=== PATIENT | female | born 1965 | race Caucasian/White ===

== ENCOUNTER 2018-07-05 11:59 | Emergency (ER) | payer OTHER, MEDICAID, SELFPAY ==
[2018-07-05] MEDS: SODIUM CHLORIDE 0.9% 1,000 ML 150 ML IV (12:05)
--- NOTE | 2018-07-05 12:06 | DI.CT.S_ITS ---
PROCEDURE: CT ABDOMEN PELVIS W CON INDICATIONS: LLQ pain hx breast cancer and diverticulitis TECHNIQUE: After the administration of intravenous contrast, 5 mm thick sections acquired from the diaphragm to the symphysis. 5 mm coronal and sagittal reformats were acquired. For radiation dose reduction, the following was used: automated exposure control, adjustment of mA and/or kV according to patient size. COMPARISON: [facility], CT, ABDOMEN/PELVIS WITH CONTRAST, 12/04/2017, 18:55. FINDINGS: Image quality: Excellent ABDOMEN: Lung bases: Unchanged 3 mm left lower lobe nodule. Heart size is normal. Trace pericardial effusion. Solid organs: Liver demonstrates unchanged steatosis and low attenuation foci. Gallbladder is unremarkable. Biliary system is non dilated. Pancreas enhances normally. Spleen is normal in size and enhancement. No adrenal nodules. Kidneys demonstrate normal size and enhancement, without hydronephrosis. Unchanged left renal cyst and nonobstructing right renal calculus. Peritoneum and bowel: Bowel loops demonstrate normal wall thickness and caliber. No free fluid or air. Colonic diverticula are present with prominent wall thickening and inflammation adjacent to a loop of descending colon. Mild dependent free fluid. Nodes and vessels: No retroperitoneal or mesenteric adenopathy by size criteria. Aorta and inferior vena cava are normal in size. Miscellaneous: No ventral hernias. PELVIS: Genitourinary: Bladder wall thickness is normal. Miscellaneous: No inguinal hernias or adenopathy. Bones: No suspicious bony lesions. No vertebral body compression fractures. IMPRESSION: 1. Focal descending loop of thickening and inflammatory change with diverticula. No abscess. Mild dependent pelvic fluid. Findings are most consistent with colitis secondary to diverticulitis. Dictated by: Zofia Coyne M.D. on 07/05/2018 at 13:26 Approved by: Zofia Coyne M.D. on 07/05/2018 at 13:39
[2018-07-05 12:14] VITALS: BP 112/80; PULSE 85; RESP 22; TEMP 36.9; O2SAT 96; BMI 36.6
[2018-07-05 12:35] LABS: Add Manual Diff / Slide Review NO; Eosinophils Percent Auto 0.9 % (2-4); Hematocrit 39.7 % (36-46); Hemoglobin 13.8 g/dL (12.0-16.0); Lymphocytes Percent Auto 24.3 % (25-40); Mean Corpuscular HGB Conc 34.7 % (30-36); Mean Corpuscular Hemoglobin 31.9 PG (26-34); Mean Corpuscular Volume 91.9 fL (80-100); Monocytes Percent Auto 8.4 % (3-14); Neutrophils Absolute Auto 5900 /uL (3000-5900); Neutrophils Percent Auto 65.4 % (50-75); Platelet Count 266 X10^3/uL (150-400); Red Blood Cell Count 4.32 X10^6/uL (4.0-5.2); Red Cell Distribution Width 12.3 % (11.6-14.8)
[2018-07-05 12:46] LABS: Alanine Aminotransferase 34 IU/L (9-52); Albumin 4.1 g/dL (3.5-5.0); Albumin Globulin Ratio 1.5 (1.0-2.8); Alkaline Phosphatase 86 U/L (38-126); Aspartate Aminotransferase 21 IU/L (14-36); BUN Creatinine Ratio 21.7 (6-22); Bilirubin Total 0.9 mg/dL (0.2-1.3); Blood Urea Nitrogen 13 mg/dL (7-17); Calcium 8.9 mg/dL (8.4-10.2); Carbon Dioxide 26 mmol/L (22-32); Chloride 104 mmol/L (98-107); Estimated Glomerular Filt Rate > 60.0 mL/min (>60); Globulin 2.8 g/dL (1.7-4.1); Glucose 80 mg/dL (70-100); HEMOLYSIS < 15 (0-50); Lipase 68 U/L (23-300); Potassium 3.9 mmol/L (3.4-5.1); Sodium 143 mmol/L (137-145); Total Protein 6.9 g/dL (6.3-8.2)
[2018-07-05 13:30] VITALS: BP 111/64; PULSE 77; RESP 14; O2SAT 100
[2018-07-05] MEDS: diphenhydrAMINE 50 MG/ML VIAL 25 MG IV (13:57)
[2018-07-05 14:00] VITALS: BP 110/65; PULSE 81; RESP 16; O2SAT 100
--- NOTE | 2018-07-05 14:08 | ED_ITS ---
HPI - Abdominal Pain General Chief Complaint: Abdominal Pain Stated Complaint: Left lower quadrant pain Time Seen by Provider: 07/05/18 12:06 History of Present Illness HPI narrative: Patient is a 53-year-old female who presents with left lower quadrant pain. This started yesterday progressively getting worse. [place]. She has history of diverticulitis and history of breast cancer. It feels nauseated at times no vomiting. She overall feels achy and weak. Normal bowel movements non bloody. Pain with movement. Related Data Home Medications Medication Instructions Recorded Confirmed aspirin 81 mg PO QDAY #0 02/19/17 acetaminophen 325 mg PO PRN PRN #0 03/21/17 [EDIBLE CANNIBUS] #0 07/07/17 [HEMP OIL PILLS] #0 07/07/17 acetaminophen-codeine 2 tab PO X1 #0 07/07/17 ibuprofen 200 mg PO PRN PRN #0 07/07/17 Previous Rx's Medication Instructions Recorded metoprolol succinate 50 mg PO QDAY #30 ter 02/27/17 cyanocobalamin (vitamin B-12) 1,000 mcg IM Q7DAYS #4 ea 03/11/17 lisinopril 10 mg PO QDAY #30 tab 03/14/17 hydrocodone-acetaminophen [[place]] 1 tab PO Q4HP PRN #15 tab 07/07/17 hydrocodone-acetaminophen [[place]] 1 tab PO Q6HP PRN #10 tab 12/04/17 levofloxacin [Levaquin] 750 mg PO QDAY #10 tab 12/04/17 metronidazole [Flagyl] 500 mg PO TID #30 tab 12/04/17 amoxicillin-pot clavulanate 1 tab PO Q12H #20 tab 07/05/18 Allergies Allergy/AdvReac Type Severity Reaction Status Date / Time No Known Allergies Allergy Unknown Unverified 01/07/18 12:26 [NO KNOWN ALLERGIES] Review of Systems Review of Systems GENERAL: Denies chills, fatigue, malaise, fever, sweats, travel HEENT: Denies sinus pain, ear pain, sore throat, difficulty swallowing, neck pain RESPIRATORY: Denies dyspnea, cough, wheezing, hemoptysis, sputum. CARDIOVASCULAR: Denies chest pain, palpitations, orthopnea, edema GASTROINTESTINAL: See HPI : Denies dysuria, frequency, incontinence, hematuria, urinary retention, flank pain. MUSCULOSKELETAL: Denies weakness, joint pain, or bony pain SKIN: No rash, no erythema, no pruritus NEUROLOGIC: Denies weakness, dizziness, headache, numbness, change in speech, confusion PSYCHIATRIC: No concerning psychosocial issues. 12 point review of systems is negative except for those stated above and HPI PFSH Medical History Diverticulitis (Acute) Social History Smoking Status: Never smoker alcohol intake: never substance use type: does not use Exam Initial Vital Signs Initial Vital Signs: Vital Signs Temperature 98.4 F 07/05/18 12:14 Pulse Rate 85 07/05/18 12:14 Respiratory Rate 22 07/05/18 12:14 Blood Pressure 112/80 07/05/18 12:14 Pulse Oximetry 96 07/05/18 12:14 GENERAL: Alert female appears uncomfortable A& O x3 HEENT: Head atraumatic,EOMI, pupils reactive, face symmetric, CARDIOVASCULAR: Regular rate and rhythm without murmurs, rubs or gallops. RESPIRATORY: Breath sounds equal bilaterally, no wheezes rales or rhonchi. ABDOMEN: Soft, mild tenderness in the lower quadrant without guarding or rebound normal bowel sounds EXTREMITIES: Normal range of motion, no clubbing or edema. Neurovascularly intact NEUROLOGICAL: Alert and oriented x4.Normal gait and speech. SKIN: Warm, dry, no laceration, no petechiae, no rashes or lesions. Course Orders Ordered: ED Orders 07/05/18 12:06 CT abdomen pelvis w con Stat 07/05/18 12:27 Complete Blood Count AUTO DIFF Stat Comprehensive Metabolic Panel Stat Lipase Stat Sodium Chloride (Normal Saline 0.9%) 1,000 mls @ 150 mls/hr IV CONT PHYLLIS Last Infusion: 07/05/18 14:25 Dose: 0 mls/hr Admin: 07/05/18 12:05 Dose: 150 mls/hr Discontinued Medications Diphenhydramine HCl (Benadryl) 25 mg IV NOW ONE Stop: 07/05/18 13:46 Last Admin: 07/05/18 13:57 Dose: 25 mg Ketorolac Tromethamine (Toradol) 30 mg IV NOW ONE Stop: 07/05/18 14:20 Last Admin: 07/05/18 14:24 Dose: 30 mg Ondansetron HCl (Zofran) 4 mg IV NOW ONE Stop: 07/05/18 12:07 Last Admin: 07/05/18 12:34 Dose: Vital Signs - 8 hr 07/05/18 12:14 07/05/18 13:30 07/05/18 14:00 Temperature 98.4 F Pulse Rate 85 77 81 Respiratory Rate 22 14 16 Blood Pressure 112/80 Blood Pressure [Left Arm] 111/64 110/65 Pulse Oximetry 96 100 100 MDM - Abdominal Pain Lab Data Attestation: I reviewed the patient's lab results. Result diagrams: 07/05/18 12:27 07/05/18 12:27 Lab Results 07/05/18 07/05/18 Range/Units 12:27 12:27 WBC 9.0 (4.5-11.0) X10^3/uL RBC 4.32 (4.0-5.2) X10^6/uL Hgb 13.8 (12.0-16.0) g/dL Hct 39.7 (36-46) % MCV 91.9 (80-100) fL MCH 31.9 (26-34) PG MCHC 34.7 (30-36) % RDW 12.3 (11.6-14.8) % Plt Count 266 (150-400) X10^3/uL Neut % (Auto) 65.4 (50-75) % Lymph % (Auto) 24.3 L (25-40) % Mobile % (Auto) 8.4 (3-14) % Eos % (Auto) 0.9 L (2-4) % Baso % (Auto) 1.0 (0-2) % Neut # (Auto) 5900 (4603-1168) /uL Sodium 143 (137-145) mmol/L Potassium 3.9 (3.4-5.1) mmol/L Chloride 104 (98-107) mmol/L Carbon Dioxide 26 (22-32) mmol/L BUN 13 (7-17) mg/dL Creatinine 0.60 (0.52-1.04) mg/dL Estimated GFR > 60.0 (>60) mL/min BUN/Creatinine Ratio 21.7 (6-22) Glucose 80 (70-100) mg/dL Calcium 8.9 (8.4-10.2) mg/dL Total Bilirubin 0.9 (0.2-1.3) mg/dL AST 21 (14-36) IU/L ALT 34 (9-52) IU/L Alkaline Phosphatase 86 (38-126) U/L Total Protein 6.9 (6.3-8.2) g/dL Albumin 4.1 (3.5-5.0) g/dL Globulin 2.8 (1.7-4.1) g/dL Albumin/Globulin Ratio 1.5 (1.0-2.8) Lipase 68 (23-300) U/L Imaging Data CT scan - abdomen: Radiologist's impression: PROCEDURE: CT ABDOMEN PELVIS W CON INDICATIONS: LLQ pain hx breast cancer and diverticulitis TECHNIQUE: After the administration of intravenous contrast, 5 mm thick sections acquired from the diaphragm to the symphysis. 5 mm coronal and sagittal reformats were acquired. For radiation dose reduction, the following was used: automated exposure control, adjustment of mA and/or kV according to patient size. COMPARISON: [facility], CT, ABDOMEN/PELVIS WITH CONTRAST, 12/04/2017, 18: 55. FINDINGS: Image quality: Excellent ABDOMEN: Lung bases: Unchanged 3 mm left lower lobe nodule. Heart size is normal. Trace pericardial effusion. Solid organs: Liver demonstrates unchanged steatosis and low attenuation foci. Gallbladder is unremarkable. Biliary system is non dilated. Pancreas enhances normally. Spleen is normal in size and enhancement. No adrenal nodules. Kidneys demonstrate normal size and enhancement, without hydronephrosis. Unchanged left renal cyst and nonobstructing right renal calculus. Peritoneum and bowel: Bowel loops demonstrate normal wall thickness and caliber. No free fluid or air. Colonic diverticula are present with prominent wall thickening and inflammation adjacent to a loop of descending colon. Mild dependent free fluid. Nodes and vessels: No retroperitoneal or mesenteric adenopathy by size criteria. Aorta and inferior vena cava are normal in size. Miscellaneous: No ventral hernias. PELVIS: Genitourinary: Bladder wall thickness is normal. Miscellaneous: No inguinal hernias or adenopathy. Bones: No suspicious bony lesions. No vertebral body compression fractures. IMPRESSION: 1. Focal descending loop of thickening and inflammatory change with diverticula. No abscess. Mild dependent pelvic fluid. Findings are most consistent with colitis secondary to diverticulitis. Dictated by: Zofia Coyne M.D. on 07/05/2018 at 13:26 Approved by: Zofia Coyne M.D. on 07/05/2018 at 13:39 MDM Narrative Medical decision making narrative: Patient states last time when she had diverticulitis she was given Flagyl she says she only took 1 day of it because he did not like the face or the way it made her feel. Today we will try Augmentin. She may require fluoroquinolone and Flagyl combination Discharge Plan Departure Patient Disposition: Home Clinical Impression: Diverticulitis Instructions: Diverticulitis Activity Restrictions/Additional Instructions: *You have been diagnosed with diverticulitis *What to do: Increase fluid intake, take antibiotics as directed until gone *Continue to take medications as directed Augmentin 875 twice a day *Follow up with your primary care provider in 2-3 days *Return to ER if you should have inability to tolerate antibiotics increased pain persistent vomiting or any new, worsening or concerning symptoms Prescriptions: New amoxicillin-pot clavulanate 875-125 mg tablet 1 tab PO Q12H Qty: 20 RF: 0 No Action aspirin 81 MG tablet,chewable 81 mg PO QDAY Qty: 0 RF: 0 metoprolol succinate 50 MG tablet extended release 24 hr 50 mg PO QDAY Qty: 30 RF: 1 cyanocobalamin (vitamin B-12) 1,000 MCG/1 ML solution 1,000 mcg IM Q7DAYS Qty: 4 RF: 0 lisinopril 10 MG tablet 10 mg PO QDAY Qty: 30 RF: 0 acetaminophen 325 MG tablet 325 mg PO PRN PRNQty: 0 RF: 0 ibuprofen 200 MG tablet 200 mg PO PRN PRNQty: 0 RF: 0 acetaminophen-codeine 30 MG/300 MG tablet 2 tab PO X1 Qty: 0 RF: 0 [HEMP OIL PILLS] Qty: 0 RF: 0 [EDIBLE CANNIBUS] Qty: 0 RF: 0 hydrocodone-acetaminophen [[place]] 5 MG/325 MG tablet 1 tab PO Q4HP PRNQty: 15 RF: 0 metronidazole [Flagyl] 500 MG tablet 500 mg PO TID Qty: 30 RF: 0 levofloxacin [Levaquin] 750 MG tablet 750 mg PO QDAY Qty: 10 RF: 0 hydrocodone-acetaminophen [[place]] 5 MG/325 MG tablet 1 tab PO Q6HP PRNQty: 10 RF: 0 Referrals: Nevin Macedo ARNP [Primary Care Provider] -
[2018-07-05] MEDS: KETOROLAC 60 MG/2 ML VIAL 30 MG IV (14:24)
--- NOTE | 2018-07-09 17:06 | PC.NURSE ---
Called pt for follow up,no answer
== END 2018-07-05 15:51 | disposition home or self-care (01) ==
PROVIDERS: Emergency Provider Emergency Medicine; PCP Nurse Practitioner Family
DX: K57.92 Diverticulitis of intestine, part unspecified, without perforation or abscess without bleeding (principal)
CPT/HCPCS: 74177; 80053; 83690; 85025; 96361; 96374; 96375; 99283; 99285; J1200; J1885

== ENCOUNTER 2021-04-19 19:49 | Inpatient (IN) | payer OTHER, MEDICAID, SELFPAY ==
[2021-04-19 19:25] VITALS: BP 149/81; PULSE 100; RESP 16; TEMP 37.9; O2SAT 93; BMI 38.0
--- NOTE | 2021-04-19 20:09 | DI.CT.S_ITS ---
PROCEDURE: CT ABDOMEN PELVIS W CON INDICATIONS: Left-sided abdominal pain TECHNIQUE: After the administration of intravenous contrast, axial sections acquired from the lung bases to the pubic symphysis. Coronal and sagittal reformats were performed. For radiation dose reduction, the following was used: automated exposure control, adjustment of mA and/or kV according to patient size. COMPARISON: [facility], CT, CT ABDOMEN PELVIS W CON, 07/05/2018, 12:56. FINDINGS: Image quality: Excellent. Lung bases: Unremarkable. Heart: No significant findings. ABDOMEN: Liver: Liver is enlarged with steatosis. Gallbladder: The gallbladder is unremarkable. Biliary ducts: Unremarkable. Pancreas: Unremarkable. Spleen: Unremarkable. Adrenal Glands: Unremarkable. Kidneys and Ureters: Unremarkable. Stomach and Bowel: Stomach, small bowel loops, and colon are nonobstructive. There is marked thickening of the proximal sigmoid colon with significant pericolonic inflammatory change. Mild scattered adjacent free fluid is present. Colonic diverticula are present. No free air. Small hiatal hernia is present. Ventral Wall: Fat containing ventral hernia is present with rectus diastasis measuring 2.2 cm Abdominal Nodes: No retroperitoneal or mesenteric adenopathy by size criteria. Vessels: Aorta and inferior vena cava are normal in size. PELVIS: Pelvic Organs: Unremarkable. Bladder: Unremarkable. Pelvic Nodes: No enlarged lymph nodes. Miscellaneous: No hernias are seen. Bones: Unremarkable. IMPRESSION: 1. Markedly thickened and inflammatory appearance of the sigmoid colon consistent with colitis secondary to diverticulitis. 2. Adjacent free fluid is present which may represent phlegmon/developing abscess. Dictated by: Zofia Coyne M.D. on 04/19/2021 at 21:49 Approved by: Zofia Coyne M.D. on 04/19/2021 at 21:51
--- NOTE | 2021-04-19 20:09 | DI.RAD.S_ITS ---
PROCEDURE: XR CHEST 1V INDICATIONS: sepsis TECHNIQUE: One view of the chest was acquired. COMPARISON: [facility], , CHEST 1 VIEW, 07/07/2017, 15:25. FINDINGS: Surgical changes and devices: None. Lungs and pleura: Lungs are clear. No pleural effusions or pneumothorax. Mediastinum: Mediastinal contours appear normal. Heart size is enlarged. Bones and chest wall: No suspicious bony lesions. Overlying soft tissues appear unremarkable. IMPRESSION: No acute pulmonary process. Dictated by: Zofia Coyne M.D. on 04/19/2021 at 21:39 Approved by: Zofia Coyne M.D. on 04/19/2021 at 21:39
[2021-04-19] MEDS: MORPHINE 4 MG/ML INJ IV (20:56)
[2021-04-19] MEDS: SODIUM CHLORIDE 0.9% 1,000 ML 1000 ML IV (20:57)
[2021-04-19 21:00] LABS: Add Manual Diff / Slide Review NO; Basophils Absolute Auto 100 /uL (0-100); Basophils Percent Auto 0.6 % (0-2); Eosinophils Absolute Auto 100 /uL (0-450); Eosinophils Percent Auto 0.6 % (2-4); Hematocrit 36.9 % (36-46); Hemoglobin 12.8 g/dL (12.0-16.0); Lymphocytes Absolute Auto 1900 /uL (1100-4500); Lymphocytes Percent Auto 17.6 % (25-40); Mean Corpuscular HGB Conc 34.8 % (30-36); Mean Corpuscular Hemoglobin 33.2 PG (26-34); Mean Corpuscular Volume 95.3 fL (80-100); Monocytes Absolute Auto 1000 /uL (0-900); Monocytes Percent Auto 9.4 % (3-14); Neutrophils Absolute Auto 7700 /uL (1500-7000); Neutrophils Percent Auto 71.8 % (50-75); Platelet Count 299 X10^3/uL (150-400); Red Blood Cell Count 3.87 X10^6/uL (4.0-5.2); White Blood Cell Count 10.7 X10^3/uL (4.5-11.0)
--- NOTE | 2021-04-19 21:11 | ED.GENADULT ---
HPI - General Adult General Chief complaint: Abdominal Pain Stated complaint: left lower abdomen pain Time Seen by Provider: 04/19/21 20:07 Source: EMS Mode of arrival: EMS History of Present Illness HPI narrative: Patient is a 55-year-old female. Does have a history of cancer. Is currently undergoing daily oral chemotherapy. Her last dose was yesterday. She also has a history of DVT. Is on anticoagulation. Her last dose of this was yesterday as well. Here in the emergency department for evaluation of left lower quadrant abdominal pain is been worsening over the past 12-24 hours. She has had history of diverticulitis. States this feels similar to that. Related Data Home Medications Medication Instructions Recorded Confirmed aspirin 81 mg chewable tablet 81 mg PO QDAY #0 02/19/17 04/19/21 acetaminophen 325 mg tablet 325 mg PO PRN PRN #0 03/21/17 04/19/21 ibuprofen 200 mg tablet 200 mg PO PRN PRN #0 07/07/17 04/19/21 anastrozole 1 mg tablet 1 mg PO DAILY 04/19/21 04/19/21 gabapentin 100 mg capsule 300 mg PO BEDTIME 04/19/21 04/19/21 pantoprazole 40 mg tablet,delayed 40 mg PO BEDTIME 04/19/21 04/19/21 release prochlorperazine maleate 10 mg 5 mg PO TID 04/19/21 04/19/21 tablet rivaroxaban 20 mg tablet (Xarelto) 20 mg PO BEDTIME 04/19/21 04/19/21 Previous Rx's Medication Instructions Recorded metoprolol succinate 50 mg 50 mg PO QDAY #30 ter 02/27/17 tablet,extended release 24 hr lisinopril 10 mg tablet 10 mg PO QDAY #30 tab 03/14/17 hydrocodone 5 mg-acetaminophen 325 1 tab PO Q4HP PRN #15 tab 07/07/17 mg tablet ([place]) Allergies Allergy/AdvReac Type Severity Reaction Status Date / Time No Known Allergies Allergy Unknown Unverified 04/19/21 20:05 [NO KNOWN ALLERGIES] latex Allergy Verified 04/19/21 20:45 Review of Systems Constitutional Constitutional: Denies fever(s) Cardiovascular Cardiovascular: Denies chest pain and Denies dyspnea Respiratory Respiratory: Denies dyspnea Gastrointestinal Gastrointestinal: Reports as per HPI, Reports abdominal pain and Reports nausea Genitourinary Genitourinary: Denies abnormal vaginal bleeding and Denies dysuria Musculoskeletal Musculoskeletal: Reports system reviewed and no additional complaints, except as documented Integumentary/Breasts Skin/Breast: Reports system reviewed and no additional complaints, except as documented Neurologic Neurologic: Reports system reviewed and no additional complaints, except as documented Psychiatric Psychiatric: Reports system reviewed and no additional complaints, except as documented Hematologic/Lymphatic On Anticoagulants: Yes Allergic/Immunologic Allergic/Immunologic: Reports system reviewed and no additional complaints, except as documented Patient History Medical History Diverticulitis DVT (deep venous thrombosis) Essential hypertension (03/05/17) Invasive carcinoma of breast (03/21/17) Mixed hyperlipidemia (12/01/15) 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 [place] Smoking Status: Never smoker alcohol intake frequency: 0-2 drinks per day Substance Use Type: does not use Exam Initial Vital Signs Initial Vital Signs: Vital Signs Temperature 100.3 F H 04/19/21 19:25 Pulse Rate 100 H 04/19/21 19:25 Respiratory Rate 16 04/19/21 19:25 Blood Pressure 149/81 H 04/19/21 19:25 Pulse Oximetry 93 04/19/21 19:25 Const General: cooperative and comfortable HENMT Head: normal to inspection and normocephalic Eyes General: appearance normal, both eyes and all related structures Neck Neck: normal visual inspection Chest Chest: normal inspection of the chest Resp Effort & Inspection: normal respiratory effort Auscultation: clear to auscultation bilaterally Cardio Rate: regular rate Rhythm: regular rhythm GI Inspection: normal to inspection Palpation: guarding and tender Skin General: no rashes or lesions noted Neuro General: patient alert, patient awake, patient oriented x3 and moves all extremities Extrem General: normal to inspection and capillary refill normal Psych Appearance: grossly normal and well kempt Course Orders Ordered: ED Orders 04/19/21 20:09 CT abdomen pelvis w con Stat XR chest 1V Stat 04/19/21 20:10 Urine Culture Stat 04/19/21 20:17 COVID19 - ADMIT (MD PSYCHIATRY swab/PCR) Stat 04/19/21 20:36 Complete Blood Count AUTO DIFF Stat Comprehensive Metabolic Panel Stat Lactate (Lactic Acid) Stat Lipase Stat Procalcitonin Stat 04/19/21 20:47 Blood Culture Stat Acetaminophen (Acetaminophen 325 Mg Tablet) 650 mg PO Q6HR PRN PRN Reason: Fever/Mild Pain (1-3) Last Admin: 04/20/21 00:25 Dose: 650 mg Documented by: GERMÁN Anastrozole (Anastrozole 1 Mg Tablet) 1 mg PO BEDTIME [facility] Last Admin: 04/20/21 00:19 Dose: 1 mg Documented by: JONEL Hydromorphone HCl (Hydromorphone 1 Mg Inj) 1 mg IV Q4H PRN PRN Reason: Pain, Moderate (4-6) Last Admin: 04/20/21 00:02 Dose: 1 mg Documented by: JONEL Sodium Chloride (Normal Saline 0.9%) 1,000 mls @ 100 mls/hr IV CONT [facility] Last Admin: 04/20/21 00:03 Dose: 100 mls/hr Documented by: JONEL Piperacillin Sod/Tazobactam (Sod 3.375 gm/ Sodium Chloride) 100 mls @ 25 mls/hr IV Q8H [facility] Lisinopril (Lisinopril 10 Mg Tablet) 10 mg PO BEDTIME [facility] Last Admin: 04/20/21 00:13 Dose: 10 mg Documented by: JONEL Metoprolol Succinate (Metoprolol Er 50 Mg Tablet) 50 mg PO BEDTIME [facility] Last Admin: 04/20/21 00:13 Dose: 50 mg Documented by: JONEL Naloxone HCl (Naloxone 0.4 Mg/Ml Vial) 0.2 mg IV Q2MIN PRN PRN Reason: Opiate Reversal Ondansetron HCl (Ondansetron 4 Mg/2 Ml Inj) 4 mg IV Q6HR PRN PRN Reason: Nausea And Vomiting Pantoprazole Sodium (Pantoprazole 40 Mg Vial) 40 mg IV BEDTIME [facility] Last Admin: 04/20/21 00:13 Dose: 40 mg Documented by: JONEL Rivaroxaban (Rivaroxaban 10 Mg Tablet) 20 mg PO BEDTIME [facility] Last Admin: 04/20/21 00:04 Dose: 20 mg Documented by: JONEL Discontinued Medications Hydromorphone HCl (Hydromorphone 1 Mg Inj) 1 mg IV NOW ONE Stop: 04/19/21 21:45 Last Admin: 04/19/21 21:52 Dose: 1 mg Documented by: BAO Sodium Chloride (Normal Saline 0.9%) 1,000 mls @ 1,000 mls/hr IV BOLUS ONE Stop: 04/19/21 21:07 Last Infusion: 04/19/21 21:57 Dose: 0 mls/hr Documented by: Admin: 04/19/21 20:57 Dose: 1,000 mls/hr Documented by: BAO Piperacillin Sod/Tazobactam (Sod 4.5 gm/ Sodium Chloride) 100 mls @ 200 mls/hr IV NOW ONE Stop: 04/19/21 22:04 Last Infusion: 04/19/21 22:48 Dose: 200 mls/hr Documented by: Admin: 04/19/21 22:18 Dose: 200 mls/hr Documented by: BAO Piperacillin Sod/Tazobactam (Sod 4.5 gm/ Sodium Chloride) 100 mls @ 25 mls/hr IV Q8H [facility] Piperacillin Sod/Tazobactam (Sod 4.5 gm/ Sodium Chloride) 100 mls @ 25 mls/hr IV Q8H [facility] Morphine Sulfate (Morphine 4 Mg/Ml Inj) 4 mg IV NOW ONE Stop: 04/19/21 20:37 Last Admin: 04/19/21 20:56 Dose: 4 mg Documented by: BAO Ondansetron HCl (Ondansetron 4 Mg/2 Ml Inj) 4 mg IV Q8HR PRN PRN Reason: Nausea And Vomiting Last Admin: 04/20/21 00:25 Dose: 4 mg Documented by: GERMÁN Vital Signs Vital signs: Vital Signs - 8 hr 04/19/21 19:25 Temperature 100.3 F H Pulse Rate 100 H Respiratory Rate 16 Blood Pressure 149/81 H Pulse Oximetry 93 Medical Decision Making Medical Records Medical records reviewed: Yes I reviewed the patient's medical records. Lab Data Lab results reviewed: Yes I reviewed the patient's lab results. Result diagrams: 04/19/21 20:36 04/19/21 20:36 Labs: Lab Results 04/19/21 04/19/21 04/19/21 Range/Units 20:17 20:36 20:36 WBC 10.7 (4.5-11.0) X10^3/uL RBC 3.87 L (4.0-5.2) X10^6/uL Hgb 12.8 (12.0-16.0) g/dL Hct 36.9 (36-46) % MCV 95.3 (80-100) fL MCH 33.2 (26-34) PG MCHC 34.8 (30-36) % RDW 12.0 (11.6-14.8) % Plt Count 299 (150-400) X10^3/uL Neut % (Auto) 71.8 (50-75) % Lymph % (Auto) 17.6 L (25-40) % [place] % (Auto) 9.4 (3-14) % Eos % (Auto) 0.6 L (2-4) % Baso % (Auto) 0.6 (0-2) % Neut # (Auto) 7700 H (9746-4747) /uL Lymph # (Auto) 1900 (3720-8147) /uL [place] # (Auto) 1000 H (0-900) /uL Eos # (Auto) 100 (0-450) /uL Baso # (Auto) 100 (0-100) /uL Sodium 138 (137-145) mmol/L Potassium 3.7 (3.4-5.1) mmol/L Chloride 104 (98-107) mmol/L Carbon Dioxide 26 (22-32) mmol/L BUN 11 (7-17) mg/dL Creatinine 0.60 (0.52-1.04) mg/dL Estimated GFR > 60.0 (>60) mL/min BUN/Creatinine Ratio 18.3 (6-22) Glucose 110 H (70-100) mg/dL Lactate (0.7-2.1) mmol/L Calcium 9.0 (8.4-10.2) mg/dL Total Bilirubin 0.7 (0.2-1.3) mg/dL AST 23 (14-36) IU/L ALT 38 H (<35) IU/L Alkaline Phosphatase 82 (38-126) U/L Total Protein 6.9 (6.3-8.2) g/dL Albumin 4.1 (3.5-5.0) g/dL Globulin 2.8 (1.7-4.1) g/dL Albumin/Globulin Ratio 1.5 (1.0-2.8) Lipase 27 (23-300) U/L Procalcitonin (<0.5) ng/mL SARS-CoV-2 (PCR) Negative (Negative) 04/19/21 04/19/21 Range/Units 20:36 20:36 WBC (4.5-11.0) X10^3/uL RBC (4.0-5.2) X10^6/uL Hgb (12.0-16.0) g/dL Hct (36-46) % MCV (80-100) fL MCH (26-34) PG MCHC (30-36) % RDW (11.6-14.8) % Plt Count (150-400) X10^3/uL Neut % (Auto) (50-75) % Lymph % (Auto) (25-40) % [place] % (Auto) (3-14) % Eos % (Auto) (2-4) % Baso % (Auto) (0-2) % Neut # (Auto) (6762-5299) /uL Lymph # (Auto) (5979-5065) /uL [place] # (Auto) (0-900) /uL Eos # (Auto) (0-450) /uL Baso # (Auto) (0-100) /uL Sodium (137-145) mmol/L Potassium (3.4-5.1) mmol/L Chloride (98-107) mmol/L Carbon Dioxide (22-32) mmol/L BUN (7-17) mg/dL Creatinine (0.52-1.04) mg/dL Estimated GFR (>60) mL/min BUN/Creatinine Ratio (6-22) Glucose (70-100) mg/dL Lactate 1.0 (0.7-2.1) mmol/L Calcium (8.4-10.2) mg/dL Total Bilirubin (0.2-1.3) mg/dL AST (14-36) IU/L ALT (<35) IU/L Alkaline Phosphatase (38-126) U/L Total Protein (6.3-8.2) g/dL Albumin (3.5-5.0) g/dL Globulin (1.7-4.1) g/dL Albumin/Globulin Ratio (1.0-2.8) Lipase (23-300) U/L Procalcitonin 0.06 (<0.5) ng/mL SARS-CoV-2 (PCR) (Negative) Imaging Data CT scan - abdomen/pelvis: Radiologist's Impression: [address] [id number] Scan ReportSigned Patient: Arabella Dukes LMR#: [id number]: 1965Acct:[id number]/Sex: 55 / FDate of Service: 04/19/21Loc: EDAccession Number: [id number] Procedure: CT abdomen pelvis w con Ordering Provider: Sharan Haley D.O. PROCEDURE: CT ABDOMEN PELVIS W CON INDICATIONS: Left-sided abdominal pain TECHNIQUE: After the administration of intravenous contrast, axial sections acquired from the lung bases to the pubic symphysis. Coronal and sagittal reformats were performed. For radiation dose reduction, the following was used: automated exposure control, adjustment of mA and/or kV according to patient size. COMPARISON: [facility], CT, CT ABDOMEN PELVIS W CON, 07/05/2018, 12:56. FINDINGS: Image quality: Excellent. Lung bases: Unremarkable. Heart: No significant findings. ABDOMEN: Liver: Liver is enlarged with steatosis. Gallbladder: The gallbladder is unremarkable. Biliary ducts: Unremarkable. Pancreas: Unremarkable. Spleen: Unremarkable. Adrenal Glands: Unremarkable. Kidneys and Ureters: Unremarkable. Stomach and Bowel: Stomach, small bowel loops, and colon are nonobstructive. There is marked thickening of the proximal sigmoid colon with significant pericolonic inflammatory change. Mild scattered adjacent free fluid is present. Colonic diverticula are present. No free air. Small hiatal hernia is present. Ventral Wall: Fat containing ventral hernia is present with rectus diastasis measuring 2.2 cm Abdominal Nodes: No retroperitoneal or mesenteric adenopathy by size criteria. Vessels: Aorta and inferior vena cava are normal in size. PELVIS: Pelvic Organs: Unremarkable. Bladder: Unremarkable. Pelvic Nodes: No enlarged lymph nodes. Miscellaneous: No hernias are seen. Bones: Unremarkable. IMPRESSION: 1. Markedly thickened and inflammatory appearance of the sigmoid colon consistent with colitis secondary to diverticulitis. 2. Adjacent free fluid is present which may represent phlegmon/developing abscess. Dictated by: Zofia Coyne M.D. on 04/19/2021 at 21:49 Approved by: Zfoia Coyne M.D. on 04/19/2021 at 21:51 Chest x-ray: Radiologist's Impression: [address] [id number] ReportSigned Patient: Arabella Dukes LMR#: [id number]: 1965Acct:[id number]/Sex: 55 / FDate of Service: 04/19/21Loc: EDAccession Number: [id number] Procedure: XR chest 1V Ordering Provider: Sharan Haley D.O. PROCEDURE: XR CHEST 1V INDICATIONS: sepsis TECHNIQUE: One view of the chest was acquired. COMPARISON: [facility], CHEST 1 VIEW, 07/07/2017, 15:25. FINDINGS: Surgical changes and devices: None. Lungs and pleura: Lungs are clear. No pleural effusions or pneumothorax. Mediastinum: Mediastinal contours appear normal. Heart size is enlarged. Bones and chest wall: No suspicious bony lesions. Overlying soft tissues appear unremarkable. IMPRESSION: No acute pulmonary process. Dictated by: Zofia Coyne M.D. on 04/19/2021 at 21:39 Approved by: Zofia Coyne M.D. on 04/19/2021 at 21:39 [facility] Narrative Medical decision making narrative: CT scan does show diverticulitis with other findings that could potentially be an early abscess. She does have a leukocytosis but she is also on chemotherapy medication. Nontoxic appearing. Antibiotics started in the emergency department. Given her history of immunosuppression and the findings potentially early abscess seen on the CT scan will admit for further evaluation and treatment. I did discuss this with the patient she expressed understanding and agreement. I then discussed the case with SEGUNDO Horne the [facility] provider who will admit for further evaluation and treatment. Discharge Plan Departure Patient Disposition: Admitted as Observation Clinical Impression: Diverticulitis Admit Date/Time: 04/19/21 22:33 Admit Provider: Michelle Horne
[2021-04-19 21:13] LABS: Alanine Aminotransferase 38 IU/L (<35); Albumin 4.1 g/dL (3.5-5.0); Albumin Globulin Ratio 1.5 (1.0-2.8); Alkaline Phosphatase 82 U/L (38-126); Aspartate Aminotransferase 23 IU/L (14-36); BUN Creatinine Ratio 18.3 (6-22); Bilirubin Total 0.7 mg/dL (0.2-1.3); Blood Urea Nitrogen 11 mg/dL (7-17); Carbon Dioxide 26 mmol/L (22-32); Chloride 104 mmol/L (98-107); Estimated Glomerular Filt Rate > 60.0 mL/min (>60); Globulin 2.8 g/dL (1.7-4.1); Glucose 110 mg/dL (70-100); HEMOLYSIS < 15 (0-50); Lipase 27 U/L (23-300); Potassium 3.7 mmol/L (3.4-5.1); Sodium 138 mmol/L (137-145); Total Protein 6.9 g/dL (6.3-8.2)
[2021-04-19 21:20] LABS: COVID19 - ADMIT (NP swab/PCR) Negative (Negative)
[2021-04-19] MEDS: HYDROMORPHONE 1 MG INJ IV (21:52)
[2021-04-19] MEDS: PIPERACILLIN/TAZO 4.5 GM in SODIUM CHLORIDE 0.9% 100 ML 200 ML IV (22:18)
[2021-04-19 22:50] VITALS: BP 148/92; PULSE 102; RESP 18; TEMP 37.3; O2SAT 94
[2021-04-19 22:54] VITALS: BP 148/62; PULSE 101; RESP 18; O2SAT 94
[2021-04-19 23:09] VITALS: BMI 38.0
[2021-04-19 23:09] LABS: Procalcitonin 0.06 ng/mL (<0.5)
--- NOTE | 2021-04-19 23:16 | PC.NURSE ---
Pt to room 217 from E.R. via stretcher. Requires two staff members to transfer from stretcher to commode to bed d/t abdominal pain. Zosyn infusing as ordered to right hand iv site without difficulty. Pillow provided for abdominal splinting. Evening casino shift manager, Rukhsana in to complete admission assessment and MIGUEL alvarez to see patient. Patient on chemo precautions as is on stated oral chemo. Pt's spouse accompanies pt. Inquired of pt if has list of home meds and pt reports does not and does not know doses of meds. Pt does report medics recorded home meds and doses. This rfp writer checked with E.R. staff and [facility] and no paperwork accompanies pt. Report to NOC RN.
--- NOTE | 2021-04-19 23:25 | P.HP_ITS ---
History of Present Illness History of Present Illness Date Patient Seen: 04/19/21 Time Patient Seen: 23:25 Chief complaint: left lower abdomen pain Narrative: Arabella Dukes is a 55-year-old female with essential hypertension, history of right-sided breast cancer and bilateral mastectomy currently undergoing chemotherapy with anastrozole, was in her usual state of health when she developed a fever of 101 today and abdominal pain which worsened by 4:00 p.m. wh ich precipitated her presenting to the emergency department for further evaluation. She mainly describes pain. No diarrhea or constipation. She has presented with this and previous instances for diverticulitis. CT scan of the abdomen and pelvis indicated to findings. 1. Markedly thickened and inflammatory appearance of the sigmoid colon consistent with colitis secondary to diverticulitis. 2. Adjacent free fluid is present which may represent phlegmon/developing abscess. She was administered IV morphine, followed by IV dilaudid in the ED for pain and IV zofran for nausea. Her initial temperature was 100.3?, currently her temperature is 99.1?, blood pressure 148/62, heart rate 101, respiratory rate 18, oxygen saturation 94% on 2 L, she weighs 97.5 kg with a BMI of 38. She is absent a white count but has a mild left shift of 7700 neutrophils, glucose is mildly elevated to 110 lactate is normal, ALT is 38, lipase 27, procalcitonin is 0.6, and COVID-19 PCR is negative. Patient History Medical History Diverticulitis DVT (deep venous thrombosis) Surgical History H/O bilateral mastectomy Hx of section Family & Social History Family History Mother Alive and well Father Myocardial infarction Son Autism Son Asthma Daughter Asthma Social History: household members family Prior Living Arrangements House Safety & Behavioral: Feels Safe in Current Yes Environment Been Physically Hurt or No Threatened By a Person Suicidal Ideation Description None Tobacco & Substance use: Smoking Status former smoker, quit at age 21 alcohol intake alcohol intake frequency 2 drinks per day, 5 days/week Substance Use Type edible cannibus Meds Home Medications and Allergies Home Medications Medication Instructions Recorded Confirmed Type aspirin 81 mg chewable tablet 81 mg PO QDAY #0 02/19/17 04/19/21 History metoprolol succinate 50 mg 50 mg PO QDAY #30 ter 02/27/17 04/19/21 Rx tablet,extended release 24 hr lisinopril 10 mg tablet 10 mg PO QDAY #30 tab 03/14/17 04/19/21 Rx acetaminophen 325 mg tablet 325 mg PO PRN PRN #0 03/21/17 04/19/21 History hydrocodone 5 mg-acetaminophen 325 1 tab PO Q4HP PRN #15 tab 07/07/17 04/19/21 Rx mg tablet ([place]) ibuprofen 200 mg tablet 200 mg PO PRN PRN #0 07/07/17 04/19/21 History anastrozole 1 mg tablet 1 mg PO DAILY 04/19/21 04/19/21 History gabapentin 100 mg capsule 300 mg PO BEDTIME 04/19/21 04/19/21 History pantoprazole 40 mg tablet,delayed 40 mg PO BEDTIME 04/19/21 04/19/21 History release prochlorperazine maleate 10 mg 5 mg PO TID 04/19/21 04/19/21 History tablet rivaroxaban 20 mg tablet (Xarelto) 20 mg PO BEDTIME 04/19/21 04/19/21 History Allergies Allergy/AdvReac Type Severity Reaction Status Date / Time No Known Allergies Allergy Unknown Unverified 04/19/21 20:05 [NO KNOWN ALLERGIES] latex Allergy Verified 04/19/21 20:45 Review of Systems Review of Systems ROS: Yes All systems reviewed with the patient and are negative except as otherwise documented Exam Vital Signs (past 8 hours): - 04/19/21 19:25 04/19/21 22:50 04/19/21 22:54 Temperature 100.3 F H 99.1 F Pulse Rate 100 H 102 H 101 H Respiratory Rate 16 18 18 Blood Pressure 149/81 H 148/92 H 148/62 H Pulse Oximetry 93 94 94 Oxygen Delivery Method Nasal Cannula Oxygen Flow Rate 2.0 Narrative Exam Narrative: Gen: Alert, oriented, obese 55 y.o. female, mildly lethargic HEENT: normocephalic, atraumatic, conjunctiva clear, sclera non-icteric, oral mucosa pink and moist Neck: supple, full ROM, no JVD, trachea is midline Resp: Lungs CTA, non-labored breathing CV: RRR, no murmur or rubs Abd: distended presenting as though in the 3rd trimester, generalized tenderness, hypoactive BTs Skin: no lesions or rashes, dry and intact Neuro: Alert and oriented X 4 w/no focal deficits. Speech clear and coherent. Extremities: moves all 4 extremities, is ambulatory, negative Afshan?s sign Psyche: normal mood and affect. Objective Labs Result Diagrams: 04/19/21 20:36 04/19/21 20:36 Labs: Laboratory Results - last 24 hr 04/19/21 04/19/21 04/19/21 20:17 20:36 20:36 WBC 10.7 RBC 3.87 L Hgb 12.8 Hct 36.9 MCV 95.3 MCH 33.2 MCHC 34.8 RDW 12.0 Plt Count 299 Neut % (Auto) 71.8 Lymph % (Auto) 17.6 L [place] % (Auto) 9.4 Eos % (Auto) 0.6 L Baso % (Auto) 0.6 Neut # (Auto) 7700 H Lymph # (Auto) 1900 [place] # (Auto) 1000 H Eos # (Auto) 100 Baso # (Auto) 100 Sodium 138 Potassium 3.7 Chloride 104 Carbon Dioxide 26 BUN 11 Creatinine 0.60 Estimated GFR > 60.0 BUN/Creatinine Ratio 18.3 Glucose 110 H Lactate Calcium 9.0 Total Bilirubin 0.7 AST 23 ALT 38 H Alkaline Phosphatase 82 Total Protein 6.9 Albumin 4.1 Globulin 2.8 Albumin/Globulin Ratio 1.5 Lipase 27 Procalcitonin SARS-CoV-2 (PCR) Negative 04/19/21 04/19/21 20:36 20:36 WBC RBC Hgb Hct MCV MCH MCHC RDW Plt Count Neut % (Auto) Lymph % (Auto) [place] % (Auto) Eos % (Auto) Baso % (Auto) Neut # (Auto) Lymph # (Auto) [place] # (Auto) Eos # (Auto) Baso # (Auto) Sodium Potassium Chloride Carbon Dioxide BUN Creatinine Estimated GFR BUN/Creatinine Ratio Glucose Lactate 1.0 Calcium Total Bilirubin AST ALT Alkaline Phosphatase Total Protein Albumin Globulin Albumin/Globulin Ratio Lipase Procalcitonin 0.06 SARS-CoV-2 (PCR) Assessment & Plan Assessment & Plan narrative: Arabella Dukes is placed into observation for further workup and treatment of a suspected sigmoid diverticulitis. 1. Suspected sigmoid diverticulitis, acute, present on admission * She was started with a loading dose of IV Zosyn 4.5 mg and will be on IV Zosyn 3.75 mg Q 8 hours * Monitor for increased girth and pain of her abdomen * IV Protonix 40 mg daily * Clear liquid diet * Pain control with IV Dilaudid 2. History of a right femoral DVT currently anticoagulated on Xarelto * Continue home dose of Xarelto 20 mg p.o. daily 3. Breast cancer undergoing tamoxifen chemotherapy * Continue home dose of tamoxifen 20 mg p.o. daily 4. Essential hypertension, chronic and stable * Continue home dose of lisinopril 10 mg p.o. daily and metoprolol succinate 50 mg p.o. daily * Cardiac telemetry VTE prophylaxis: Wells risk score: 4 Patient is currently anticoagulated on oral rivaroxaban Consults: consider general surgery consult and involvement if continued pain and worsening abdominal distension Patient is observation status as her stay is not likely to exceed 2 midnights. FEN: IV NS at 100 ml/hour, clears, CBMP and magnesium in the am. Dispo: probable discharge to home Code Status: Full code as discussed with patient who identifies her , Ravindra Acuna as her surrogate and POA Scores Wells' Criteria for PE Clinical signs and symptoms of DVT: No PE is #1 Dx or equally likely: No Heart rate > 100: Yes Immobilization at least 3 days or surg in previous 4 weeks: No History of PE or DVT: Yes Hemoptysis: No Malignancy w/Treatment within 6 months or palliative: Yes Wells' PE Score total: 4.0 Quality VTE Deep Vein Thrombosis/Pulmonary Embolism Present on Admission: No
[2021-04-20] VITALS (9 sets, daily range): BP systolic 106–141; BP diastolic 62–79; PULSE 81–92; RESP 16–18; TEMP 36.4–36.9; O2SAT 93–97
[2021-04-20] MEDS: HYDROMORPHONE 1 MG INJ IV ×6 (00:02→23:54)
[2021-04-20] MEDS: SODIUM CHLORIDE 0.9% 1,000 ML 100 ML IV ×3 (00:03→23:05)
[2021-04-20] MEDS: RIVAROXABAN 10 MG TABLET 20 MG PO ×2 (00:04→20:58)
[2021-04-20] MEDS: PANTOPRAZOLE 40 MG VIAL IV ×2 (00:13→20:58)
[2021-04-20] MEDS: METOPROLOL ER 50 MG TABLET PO ×2 (00:13→20:58)
[2021-04-20] MEDS: lisinopriL 10 MG TABLET PO ×2 (00:13→20:58)
[2021-04-20] MEDS: ANASTROZOLE 1 MG TABLET PO ×2 (00:19→21:01)
[2021-04-20] MEDS: ONDANSETRON 4 MG/2 ML INJ IV ×2 (00:25→17:08)
[2021-04-20] MEDS: ACETAMINOPHEN 325 MG TABLET 650 MG PO ×4 (00:25→20:57)
[2021-04-20] MEDS: PIPERACILLIN/TAZO 3.375 GM in SODIUM CHLORIDE 0.9% 100 ML 25 ML IV ×3 (05:46→22:06)
[2021-04-20 06:20] LABS: BUN Creatinine Ratio 18.2 (6-22); Blood Urea Nitrogen 10 mg/dL (7-17); Calcium 8.7 mg/dL (8.4-10.2); Carbon Dioxide 27 mmol/L (22-32); Chloride 106 mmol/L (98-107); Estimated Glomerular Filt Rate > 60.0 mL/min (>60); Glucose 114 mg/dL (70-100); HEMOLYSIS < 15 (0-50); Potassium 3.9 mmol/L (3.4-5.1); Sodium 138 mmol/L (137-145)
[2021-04-20 08:35] LABS: Add Manual Diff / Slide Review NO; Basophils Absolute Auto 100 /uL (0-100); Basophils Percent Auto 0.7 % (0-2); Eosinophils Absolute Auto 100 /uL (0-450); Eosinophils Percent Auto 0.9 % (2-4); Hematocrit 34.7 % (36-46); Hemoglobin 12.2 g/dL (12.0-16.0); Lymphocytes Absolute Auto 2100 /uL (1100-4500); Lymphocytes Percent Auto 19.7 % (25-40); Mean Corpuscular HGB Conc 35.1 % (30-36); Mean Corpuscular Hemoglobin 33.6 PG (26-34); Mean Corpuscular Volume 95.8 fL (80-100); Monocytes Absolute Auto 1300 /uL (0-900); Monocytes Percent Auto 12.3 % (3-14); Neutrophils Absolute Auto 7100 /uL (1500-7000); Neutrophils Percent Auto 66.4 % (50-75); Platelet Count 283 X10^3/uL (150-400); Red Blood Cell Count 3.63 X10^6/uL (4.0-5.2); White Blood Cell Count 10.7 X10^3/uL (4.5-11.0)
--- NOTE | 2021-04-20 09:05 | PC.NURSE ---
Patient resting in bed, breathing unlabored on RA, denies SOB. C/O abdominal pain with activity, at rest pain is minimal. Abd is distended, tender in LLQ. BS hypoactive in LLQ and LUQ. ABX infusing concurrent with NS@100cc/hr. Patient tolerating clears. Denies needs at this time. Call light in reach.
--- NOTE | 2021-04-20 14:40 | CM.IDA ---
Initial DCP Assessment Note Pt is a 55 yo female, resident of [place], arrives w/lower abd pain, suspected sigmoid diverticulitis PCP: Nevin Macedo Payer: [employer] Reviewed chart, spoke w/RN Amanda who anticipates patient will DC home once cleared medically. Patient w/PMH to include Breast CA, currently on chemo, h/o double mastectomy. Patient receiving IV abx and is not being considered for surgery at this time. Met w/patient, introduced role. Patient is indp. and active at baseline, lives w/her partner, her 15 and 16 yo and her parents are visiting from [place], all living in their home on [address]. Patient does not anticipate having any DC needs from this CONGRESSIONAL AIDE or from DCP team. No needs expected from DC planning team although will remain available in case this changes today. RICKY Moreland Discharge Planning/Care Management CM Discharge Assessment Start: 04/20/21 14:35 Freq: Status: Active Protocol: Document 04/20/21 14:35 CHEPE (Rec: 04/20/21 14:40 CHEPE [id number]) Discharge Planning Assessment Assigned Game Operator RICKY Resendiz DPOA/Assigned Designee Name Derek Acuna, Partner Contact Information [phone] Advance Directives? No History Provided By Patient Prior Living Arrangements House Household Members family Type of transporation used prior to Drives own vehicle admit Independent with ADL's Yes Is patient alert and oriented? Yes Barriers to Discharge No Comment Home w/family Discharge Plan Home Transportation Arrangement Family, requests priority board pass Referrals Initiated None needed
--- NOTE | 2021-04-20 17:40 | P.PN_ITS ---
Subjective Subjective Interval history: Patient continues to have abdominal pain. Her pain was initially 10/10, now described as 5/10. She has had multiple episodes of diverticultis and was told she has pancolitis. She sees Dr. Brennan, GI at [facility]. Exam Vital Signs (past 8 hours): - 04/20/21 11:39 04/20/21 15:40 Temperature 98.4 F 98.4 F Pulse Rate 84 92 H Respiratory Rate 17 Blood Pressure 130/75 141/75 H Pulse Oximetry 93 Oxygen Delivery Method Room Air Oxygen Flow Rate 0 Narrative Exam Narrative: ill appearing female, uncomfortable lying in bed Chest Other: lungs: clear to auscultation Cardio Other: RRR Nl Sl S2 GI Other: Abd: distended, soft, tender in the left lower quadrant, no rebound tenderness, very tender Extrem Other: no edema Objective Labs Result Diagrams: 04/20/21 08:17 04/20/21 05:53 Labs: Laboratory Results - last 24 hr 04/19/21 04/19/21 04/19/21 20:17 20:36 20:36 WBC 10.7 RBC 3.87 L Hgb 12.8 Hct 36.9 MCV 95.3 MCH 33.2 MCHC 34.8 RDW 12.0 Plt Count 299 Neut % (Auto) 71.8 Lymph % (Auto) 17.6 L [place] % (Auto) 9.4 Eos % (Auto) 0.6 L Baso % (Auto) 0.6 Neut # (Auto) 7700 H Lymph # (Auto) 1900 [place] # (Auto) 1000 H Eos # (Auto) 100 Baso # (Auto) 100 Sodium 138 Potassium 3.7 Chloride 104 Carbon Dioxide 26 BUN 11 Creatinine 0.60 Estimated GFR > 60.0 BUN/Creatinine Ratio 18.3 Glucose 110 H Lactate Calcium 9.0 Total Bilirubin 0.7 AST 23 ALT 38 H Alkaline Phosphatase 82 Total Protein 6.9 Albumin 4.1 Globulin 2.8 Albumin/Globulin Ratio 1.5 Lipase 27 Procalcitonin SARS-CoV-2 (PCR) Negative 04/19/21 04/19/21 04/20/21 20:36 20:36 05:53 WBC RBC Hgb Hct MCV MCH MCHC RDW Plt Count Neut % (Auto) Lymph % (Auto) [place] % (Auto) Eos % (Auto) Baso % (Auto) Neut # (Auto) Lymph # (Auto) [place] # (Auto) Eos # (Auto) Baso # (Auto) Sodium 138 Potassium 3.9 Chloride 106 Carbon Dioxide 27 BUN 10 Creatinine 0.55 Estimated GFR > 60.0 BUN/Creatinine Ratio 18.2 Glucose 114 H Lactate 1.0 Calcium 8.7 Total Bilirubin AST ALT Alkaline Phosphatase Total Protein Albumin Globulin Albumin/Globulin Ratio Lipase Procalcitonin 0.06 SARS-CoV-2 (PCR) 04/20/21 08:17 WBC 10.7 RBC 3.63 L Hgb 12.2 Hct 34.7 L MCV 95.8 MCH 33.6 MCHC 35.1 RDW 12.0 Plt Count 283 Neut % (Auto) 66.4 Lymph % (Auto) 19.7 L [place] % (Auto) 12.3 Eos % (Auto) 0.9 L Baso % (Auto) 0.7 Neut # (Auto) 7100 H Lymph # (Auto) 2100 [place] # (Auto) 1300 H Eos # (Auto) 100 Baso # (Auto) 100 Sodium Potassium Chloride Carbon Dioxide BUN Creatinine Estimated GFR BUN/Creatinine Ratio Glucose Lactate Calcium Total Bilirubin AST ALT Alkaline Phosphatase Total Protein Albumin Globulin Albumin/Globulin Ratio Lipase Procalcitonin SARS-CoV-2 (PCR) [facility] Medical History Diverticulitis DVT (deep venous thrombosis) Essential hypertension (03/05/17) Invasive carcinoma of breast (03/21/17) Mixed hyperlipidemia (12/01/15) Nodule of left lobe of thyroid gland (03/05/17) Old myocardial infarction (12/01/15) Surgical History H/O bilateral mastectomy Hx of section Family History Mother Alive and well Father Myocardial infarction Son Autism Son Asthma Daughter Asthma Social History household members: family Smoking Status: Never smoker alcohol intake: never substance use type: does not use additional 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 2. History of a right femoral DVT currently anticoagulated on Xarelto Continue home dose of Xarelto 20 mg p.o. daily 3. Breast cancer undergoing tamoxifen chemotherapy Continue home dose of tamoxifen 20 mg p.o. daily 4. Essential hypertension, chronic and stable Continue home dose of lisinopril 10 mg p.o. daily and metoprolol succinate 50 mg p.o. daily Cardiac telemetry I have reviewed her medications, and used all sources to verify her med reconcillation is correct Quality VTE Deep Vein Thrombosis/Pulmonary Embolism Present on Admission: No
[2021-04-20] MEDS: PROCHLORPERAZINE 10 MG/2 ML VIAL 5 MG IV (19:35)
[2021-04-21] VITALS (10 sets, daily range): BP systolic 115–137; BP diastolic 75–80; PULSE 78–88; RESP 14–18; TEMP 36.6–37; O2SAT 92–98
[2021-04-21] MEDS: HYDROMORPHONE 1 MG INJ IV ×3 (05:07→13:37)
[2021-04-21] MEDS: ACETAMINOPHEN 325 MG TABLET 650 MG PO ×3 (05:07→23:41)
[2021-04-21] MEDS: SODIUM CHLORIDE 0.9% 1,000 ML 100 ML IV ×2 (05:11→18:35)
[2021-04-21] MEDS: PIPERACILLIN/TAZO 3.375 GM in SODIUM CHLORIDE 0.9% 100 ML 25 ML IV ×3 (05:12→21:34)
[2021-04-21 06:36] LABS: Add Manual Diff / Slide Review NO; Basophils Absolute Auto 100 /uL (0-100); Basophils Percent Auto 0.6 % (0-2); Eosinophils Absolute Auto 200 /uL (0-450); Hematocrit 34.9 % (36-46); Hemoglobin 11.8 g/dL (12.0-16.0); Lymphocytes Absolute Auto 1500 /uL (1100-4500); Lymphocytes Percent Auto 14.7 % (25-40); Mean Corpuscular HGB Conc 33.9 % (30-36); Mean Corpuscular Hemoglobin 32.9 PG (26-34); Mean Corpuscular Volume 96.9 fL (80-100); Monocytes Absolute Auto 1000 /uL (0-900); Monocytes Percent Auto 9.5 % (3-14); Neutrophils Absolute Auto 7500 /uL (1500-7000); Neutrophils Percent Auto 73.2 % (50-75); Platelet Count 298 X10^3/uL (150-400); Red Cell Distribution Width 12.4 % (11.6-14.8); White Blood Cell Count 10.2 X10^3/uL (4.5-11.0)
[2021-04-21 06:46] LABS: BUN Creatinine Ratio 13.6 (6-22); Blood Urea Nitrogen 8 mg/dL (7-17); Calcium 8.8 mg/dL (8.4-10.2); Carbon Dioxide 26 mmol/L (22-32); Chloride 106 mmol/L (98-107); Estimated Glomerular Filt Rate > 60.0 mL/min (>60); Glucose 111 mg/dL (70-100); HEMOLYSIS < 15 (0-50); Potassium 3.7 mmol/L (3.4-5.1); Sodium 139 mmol/L (137-145)
--- NOTE | 2021-04-21 08:46 | PM.PN.1 ---
Subjective Subjective Date Patient Seen: 04/21/21 Time Patient Seen: 08:46 Interval history: Patient continues to have abdominal pain. She has passed gas this AM, no bowel movements. Pain is 6/10 this AM. She would like to try some more advanced foods. Denies nausea or vomiting today. Exam Vital Signs (past 8 hours): - 04/21/21 04:04 Pulse Oximetry 94 Oxygen Delivery Method Room Air Oxygen Flow Rate 0 Narrative Exam Narrative: Gen: Alert, oriented, obese 55 y.o. female, appears mildly uncomfortable. HEENT: normocephalic, atraumatic, conjunctiva clear, sclera non-icteric, oral mucosa pink and moist Neck: supple, full ROM, no JVD, trachea is midline Resp: Lungs CTA, non-labored breathing CV: RRR, no murmur or rubs Abd: soft with upper quadrant distension bilaterally, LLQ tenderness with minimal palpation. Skin: no lesions or rashes, dry and intact Neuro: Alert and oriented X 4 w/no focal deficits. Speech clear and coherent. Extremities: moves all 4 extremities, is ambulatory, negative Afshan?s sign Psyche: normal mood and affect. Objective Labs Result Diagrams: 04/21/21 06:15 04/21/21 06:15 Labs: Laboratory Results - last 24 hr 04/21/21 04/21/21 06:15 06:15 WBC 10.2 RBC 3.60 L Hgb 11.8 L Hct 34.9 L MCV 96.9 MCH 32.9 MCHC 33.9 RDW 12.4 Plt Count 298 Neut % (Auto) 73.2 Lymph % (Auto) 14.7 L [place] % (Auto) 9.5 Eos % (Auto) 2.0 Baso % (Auto) 0.6 Neut # (Auto) 7500 H Lymph # (Auto) 1500 [place] # (Auto) 1000 H Eos # (Auto) 200 Baso # (Auto) 100 Sodium 139 Potassium 3.7 Chloride 106 Carbon Dioxide 26 BUN 8 Creatinine 0.59 Estimated GFR > 60.0 BUN/Creatinine Ratio 13.6 Glucose 111 H Calcium 8.8 PFSH Medical History Diverticulitis DVT (deep venous thrombosis) Essential hypertension (03/05/17) Invasive carcinoma of breast (03/21/17) Mixed hyperlipidemia (12/01/15) Nodule of left lobe of thyroid gland (03/05/17) Old myocardial infarction (12/01/15) Surgical History H/O bilateral mastectomy Hx of section Family History Mother Alive and well Father Myocardial infarction Son Autism Son Asthma Daughter Asthma Social History household members: family Smoking Status: Never smoker alcohol intake: never substance use type: does not use 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 Acute Diverticulitis, , present on admission continue zosyn will trial advancement to full liquid today. Add oxycodone prn for pain control, dilaudid IV for breakthrough. IV Protonix 40 mg daily continue pain control. patient needs GI evaluation at discharge, likely will need C-Scope and outpatient surgery evaluation given her multiple episodes of recurrences. 2. History of a right femoral DVT currently anticoagulated on Xarelto Continue home dose of Xarelto 20 mg p.o. daily 3. Breast cancer undergoing tamoxifen chemotherapy Continue home dose of tamoxifen 20 mg p.o. daily 4. Essential hypertension, chronic and stable Continue home dose of lisinopril 10 mg p.o. daily and metoprolol succinate 50 mg p.o. daily Quality VTE Deep Vein Thrombosis/Pulmonary Embolism Present on Admission: No
[2021-04-21] MEDS: PROCHLORPERAZINE 10 MG/2 ML VIAL 5 MG IV ×3 (09:02→23:43)
[2021-04-21] MEDS: OXYCODONE IR 5 MG TABLET PO (10:29)
--- NOTE | 2021-04-21 11:57 | PC.NURSE ---
Abdominal pain to LLQ moderate to severe; improved with PO oxy and IV dilaudid at 4/10; hypoactive BTs, tympanic in LLQ; SBA with fww to bathroom
[2021-04-21] MEDS: OXYCODONE IR 10 MG TABLET PO ×3 (14:35→22:34)
[2021-04-21] MEDS: lisinopriL 10 MG TABLET PO (21:32)
[2021-04-21] MEDS: METOPROLOL ER 50 MG TABLET PO (21:32)
[2021-04-21] MEDS: RIVAROXABAN 10 MG TABLET 20 MG PO (21:32)
[2021-04-21] MEDS: PANTOPRAZOLE 40 MG VIAL IV (21:33)
[2021-04-21] MEDS: ANASTROZOLE 1 MG TABLET PO (21:33)
[2021-04-22] VITALS (8 sets, daily range): BP systolic 118–136; BP diastolic 68–88; PULSE 73–82; RESP 16–20; TEMP 36.3–36.9; O2SAT 94–95
[2021-04-22] MEDS: ONDANSETRON 4 MG/2 ML INJ IV (04:39)
[2021-04-22] MEDS: OXYCODONE IR 10 MG TABLET PO ×4 (04:39→17:19)
[2021-04-22] MEDS: PIPERACILLIN/TAZO 3.375 GM in SODIUM CHLORIDE 0.9% 100 ML 25 ML IV ×2 (07:06→14:26)
--- NOTE | 2021-04-22 10:00 | PC.NURSE ---
Patient is alert and oriented x3, states that pain to l.abdomen is 7/10. Given oxycodone 10mg for discomfort and this has been helpful. She is moving better with the walker and overall states that she is feeling better today.
--- NOTE | 2021-04-22 12:40 | PM.PN.1 ---
Subjective Subjective Date Patient Seen: 04/22/21 Time Patient Seen: 12:40 Interval history: Patient continues to have abdominal pain. She has passed gas this AM, no bowel movements for near 5 days now. Pain is slowly improving. She does not wish to advance from full liquids today, is being very cautious today. Some nausea with anastrazole, otherwise doing okay. Exam Vital Signs (past 8 hours): Oxygen Delivery Method Room Air Oxygen Flow Rate 0 Narrative Exam Narrative: Gen: Alert, oriented, obese 55 y.o. female, appears mildly uncomfortable. HEENT: normocephalic, atraumatic, conjunctiva clear, sclera non-icteric, oral mucosa pink and moist Neck: supple, full ROM, no JVD, trachea is midline Resp: Lungs CTA, non-labored breathing CV: RRR, no murmur or rubs Abd: soft with improved upper quadrant distension today, LLQ tenderness with minimal palpation though slightly improved today. Skin: no lesions or rashes, dry and intact Neuro: Alert and oriented X 4 w/no focal deficits. Speech clear and coherent. Extremities: moves all 4 extremities, is ambulatory, negative Afshan?s sign Psyche: normal mood and affect. Objective Labs Result Diagrams: 04/21/21 06:15 04/21/21 06:15 [facility] Medical History Diverticulitis DVT (deep venous thrombosis) Essential hypertension (03/05/17) Invasive carcinoma of breast (03/21/17) Mixed hyperlipidemia (12/01/15) Nodule of left lobe of thyroid gland (03/05/17) Old myocardial infarction (12/01/15) Surgical History H/O bilateral mastectomy Hx of section Family History Mother Alive and well Father Myocardial infarction Son Autism Son Asthma Daughter Asthma Social History household members: family Smoking Status: Never smoker alcohol intake: never substance use type: does not use 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 Acute recurrent Diverticulitis, , present on admission continue zosyn continue full liquid today. Added oxycodone prn for pain control, dilaudid IV for breakthrough. continue pain control. consider repeat CT imaging if no additional improvement by tomorrow as there was some concern about possible developing abscess on initial CT 04/19. patient needs GI evaluation at discharge, likely will need C-Scope and outpatient surgery evaluation given her multiple episodes of recurrences. 2. History of a right femoral DVT currently anticoagulated on Xarelto Continue home dose of Xarelto 20 mg p.o. daily 3. Breast cancer undergoing tamoxifen chemotherapy Continue home dose of tamoxifen 20 mg p.o. daily 4. Essential hypertension, chronic and stable Continue home dose of lisinopril 10 mg p.o. daily and metoprolol succinate 50 mg p.o. daily Code: Full DVT: on xarelto Dispo: remains inpatient. discharge timing unclear, depends on progression of symptoms. Quality VTE Deep Vein Thrombosis/Pulmonary Embolism Present on Admission: No MIPS - Admit I confirm the patient?s Advance Care Plan is present, Code status is documented, Surrogate decision maker is in patient?s record [If Yes, STOP here]: Yes
[2021-04-22] MEDS: polyethylene glycoL 3350 17 GM POWD.PACK PO (12:54)
--- NOTE | 2021-04-22 17:32 | PC.NURSE ---
for dinner, pt had her broth and just a few tablespoons of ice cream. abdominal pain 5, medicated with oxycodone. at this time she is getting her midline inserted.
[2021-04-22] MEDS: ANASTROZOLE 1 MG TABLET PO (20:39)
[2021-04-22] MEDS: RIVAROXABAN 10 MG TABLET 20 MG PO (20:39)
[2021-04-22] MEDS: lisinopriL 10 MG TABLET PO (20:39)
[2021-04-22] MEDS: METOPROLOL ER 50 MG TABLET PO (20:40)
[2021-04-22] MEDS: PROCHLORPERAZINE 10 MG/2 ML VIAL 5 MG IV (20:44)
[2021-04-22] MEDS: OXYCODONE IR 5 MG TABLET PO (22:00)
[2021-04-22] MEDS: ACETAMINOPHEN 325 MG TABLET 650 MG PO (23:40)
[2021-04-23 00:24] VITALS: BP 118/68; PULSE 81; RESP 16; TEMP 36.8; O2SAT 95
[2021-04-23] MEDS: PIPERACILLIN/TAZO 3.375 GM in SODIUM CHLORIDE 0.9% 100 ML 25 ML IV (02:23)
[2021-04-23] MEDS: SODIUM CHLORIDE 0.9% FLUSH 10 ML IV ×3 (02:24→09:07)
[2021-04-23] MEDS: OXYCODONE IR 5 MG TABLET PO ×3 (02:33→11:01)
[2021-04-23] MEDS: PANTOPRAZOLE DR 20 MG TABLET PO (06:36)
[2021-04-23] MEDS: ACETAMINOPHEN 325 MG TABLET 650 MG PO ×2 (06:36→10:06)
--- NOTE | 2021-04-23 06:58 | PC.NURSE ---
Midline flushes well, but not able to draw any blood. Lab & day RN notified.
[2021-04-23 07:25] VITALS: BP 148/92; PULSE 76; RESP 16; TEMP 36.9; O2SAT 93
[2021-04-23 07:41] LABS: Add Manual Diff / Slide Review NO; Basophils Absolute Auto 100 /uL (0-100); Eosinophils Absolute Auto 300 /uL (0-450); Eosinophils Percent Auto 3.8 % (2-4); Lymphocytes Absolute Auto 1700 /uL (1100-4500); Lymphocytes Percent Auto 25.9 % (25-40); Mean Corpuscular HGB Conc 34.4 % (30-36); Mean Corpuscular Hemoglobin 32.9 PG (26-34); Mean Corpuscular Volume 95.8 fL (80-100); Monocytes Absolute Auto 600 /uL (0-900); Monocytes Percent Auto 9.8 % (3-14); Neutrophils Absolute Auto 4000 /uL (1500-7000); Neutrophils Percent Auto 59.5 % (50-75); Platelet Count 308 X10^3/uL (150-400); Red Blood Cell Count 3.34 X10^6/uL (4.0-5.2); Red Cell Distribution Width 11.7 % (11.6-14.8); White Blood Cell Count 6.6 X10^3/uL (4.5-11.0)
[2021-04-23 07:53] LABS: Alanine Aminotransferase 28 IU/L (<35); Albumin 3.4 g/dL (3.5-5.0); Albumin Globulin Ratio 1.1 (1.0-2.8); Alkaline Phosphatase 81 U/L (38-126); Aspartate Aminotransferase 25 IU/L (14-36); BUN Creatinine Ratio 8.5 (6-22); Bilirubin Total 0.5 mg/dL (0.2-1.3); Blood Urea Nitrogen 5 mg/dL (7-17); Calcium 8.7 mg/dL (8.4-10.2); Carbon Dioxide 29 mmol/L (22-32); Chloride 106 mmol/L (98-107); Estimated Glomerular Filt Rate > 60.0 mL/min (>60); Glucose 97 mg/dL (70-100); HEMOLYSIS < 15 (0-50); Potassium 3.5 mmol/L (3.4-5.1); Sodium 140 mmol/L (137-145); Total Protein 6.4 g/dL (6.3-8.2)
[2021-04-23] MEDS: polyethylene glycoL 3350 17 GM POWD.PACK PO (09:07)
[2021-04-23 09:57] VITALS: O2SAT 93
--- NOTE | 2021-04-23 10:06 | P.DS_ITS ---
History of Present Illness History of Present Illness Date Patient Seen: 04/23/21 Time Patient Seen: 10:06 Chief complaint: left lower abdomen pain Narrative: Per Michelle Horne, ANRP: Arabella Dukes is a 55-year-old female with essential hypertension, history of right-sided breast cancer and bilateral mastectomy currently undergoing chemo therapy with anastrozole, was in her usual state of health when she developed a fever of 101 today and abdominal pain which worsened by 4:00 p.m. which precipitated her presenting to the emergency department for further evaluation. She mainly describes pain. No diarrhea or constipation. She has presented with this and previous instances for diverticulitis. CT scan of the abdomen and pelvis indicated to findings. 1. Markedly thickened and inflammatory appearance of the sigmoid colon consistent with colitis secondary to diverticulitis. 2. Adjacent free fluid is present which may represent phlegmon/developing abscess. She was administered IV morphine, followed by IV dilaudid in the ED for pain and IV zofran for nausea. Her initial temperature was 100.3?, currently her temperature is 99.1?, blood pressure 148/62, heart rate 101, respiratory rate 18, oxygen saturation 94% on 2 L, she weighs 97.5 kg with a BMI of 38. She is absent a white count but has a mild left shift of 7700 neutrophils, glucose is mildly elevated to 110 lactate is normal, ALT is 38, lipase 27, procalcitonin is 0.6, and COVID-19 PCR is negative. Discharge Providers Provider Date of admission: 04/19/21 22:33 Discharge Date: 04/23/21 Primary care physician: MIGUEL Walters Discharge provider: Ronal Nieto DO Summary Hospital Course Discharge Diagnosis: 1. Acute recurrent Diverticulitis, , present on admission 2. History of a right femoral DVT currently anticoagulated on Xarelto 3. Breast cancer undergoing tamoxifen chemotherapy 4. Essential hypertension, chronic and stable 5. Obesity with BMI 38.1 Hospital Course: This is a 55-year-old female with a past medical history of right femoral DVT, breast cancer, hypertension, and prior episodes of diverticulitis who was admitted with a recurrence of her diverticulitis. She slowly improved with Zosyn therapy, enough to be able to tolerate a full liquid diet and move comfortably with oral pain control measures. Further consideration was made to repeat scanning after initial CT showed a possible early abscess, however the patient began to have bowel movements and was much improved on the day of discharge. I do recommend follow-up with her outpatient primary care provider, for possible referral to GI and or surgery for to discuss endoscopy and/or potential surgical options for her recurrent diverticular disease. She was discharged on oral Augmentin to complete her course at home. Obesity in this patient contributes toward recurrent diverticular disease and increases the risk of serious complications. Exam Vital Signs (past 8 hours): - 04/23/21 07:25 04/23/21 09:57 Temperature 98.4 F Pulse Rate 76 Respiratory Rate 16 Blood Pressure 148/92 H Pulse Oximetry 93 93 Oxygen Delivery Method Room Air Oxygen Flow Rate 0 Narrative Exam Narrative: Gen: Alert, oriented, obese 55 y.o. female, appears mildly uncomfortable. HEENT: normocephalic, atraumatic, conjunctiva clear, sclera non-icteric, oral mucosa pink and moist Neck: supple, full ROM, no JVD, trachea is midline Resp: Lungs CTA, non-labored breathing CV: RRR, no murmur or rubs Abd: soft with improved upper quadrant distension today, LLQ tenderness with deep palpation though improved markedly today. Skin: no lesions or rashes, dry and intact Neuro: Alert and oriented X 4 w/no focal deficits. Speech clear and coherent. Extremities: moves all 4 extremities, is ambulatory, negative Afshan?s sign Psyche: normal mood and affect. Objective Labs Result Diagrams: 04/23/21 07:20 04/23/21 07:20 Labs: Laboratory Results - last 24 hr 04/23/21 04/23/21 07:20 07:20 WBC 6.6 RBC 3.34 L Hgb 11.0 L Hct 32.0 L MCV 95.8 MCH 32.9 MCHC 34.4 RDW 11.7 Plt Count 308 Neut % (Auto) 59.5 Lymph % (Auto) 25.9 [place] % (Auto) 9.8 Eos % (Auto) 3.8 Baso % (Auto) 1.0 Neut # (Auto) 4000 Lymph # (Auto) 1700 [place] # (Auto) 600 Eos # (Auto) 300 Baso # (Auto) 100 Sodium 140 Potassium 3.5 Chloride 106 Carbon Dioxide 29 BUN 5 L Creatinine 0.59 Estimated GFR > 60.0 BUN/Creatinine Ratio 8.5 Glucose 97 Calcium 8.7 Total Bilirubin 0.5 AST 25 ALT 28 Alkaline Phosphatase 81 Total Protein 6.4 Albumin 3.4 L Globulin 3.0 Albumin/Globulin Ratio 1.1 [facility] Medical History Diverticulitis DVT (deep venous thrombosis) Essential hypertension (03/05/17) Invasive carcinoma of breast (03/21/17) Mixed hyperlipidemia (12/01/15) Nodule of left lobe of thyroid gland (03/05/17) Old myocardial infarction (12/01/15) Surgical History H/O bilateral mastectomy Hx of section Family History Mother Alive and well Father Myocardial infarction Son Autism Son Asthma Daughter Asthma Social History household members: family Smoking Status: Never smoker alcohol intake: never substance use type: does not use 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 Please complete this course of antibiotics at home. Would recommend follow up with GI or surgery to discuss possible surgical options in the future given multiple recurrences. Discharge orders & Medications Prescriptions: New amoxicillin-pot clavulanate 875-125 mg tablet 1 tab PO BID 10 Days Qty: 20 RF: 0 Continued aspirin 81 MG tablet,chewable 81 mg PO QDAY Qty: 0 RF: 0 metoprolol succinate 50 MG tablet extended release 24 hr 50 mg PO QDAY Qty: 30 RF: 1 lisinopril 10 MG tablet 10 mg PO QDAY Qty: 30 RF: 0 acetaminophen 325 MG tablet 325 mg PO PRN PRN (Reason: Pain (Scale Score 1-3)) Qty: 0 RF: 0 ibuprofen 200 MG tablet 200 mg PO PRN PRN (Reason: Pain (Scale Score 1-3)) Qty: 0 RF: 0 hydrocodone-acetaminophen [[place]] 5 MG/325 MG tablet 1 tab PO Q4HP PRNQty: 15 RF: 0 anastrozole 1 mg tablet 1 mg PO DAILY RF: 0 prochlorperazine maleate 10 mg tablet 5 mg PO TID RF: 0 pantoprazole 40 mg tablet,delayed release (DR/EC) 40 mg PO BEDTIME RF: 0 gabapentin 100 mg capsule 300 mg PO BEDTIME RF: 0 Xarelto 20 mg tablet 20 mg PO BEDTIME RF: 0 Follow up/Referrals: Nevin Macedo ARNP [Primary Care Provider] - Diet/Activity/Treatments Diet: Diet as Tolerated Diet comment: Low fiber Activity: As tolerated Visit Report/Discharge Packet Instructions: DI for Diverticulitis Discharge Data Primary Care Provider: Nevin Macedo Quality VTE Deep Vein Thrombosis/Pulmonary Embolism Present on Admission: No
[2021-04-23] MEDS: AMOXICILLIN/CLAV 875/125 MG 1 TAB PO (10:23)
--- NOTE | 2021-04-23 12:17 | PC.NURSE ---
Went over dc instructions and medications with patient, questions answered. Patient taken via wc to vehicle driven by spouse. Patient had all belongings.
== END 2021-04-23 12:00 | disposition home or self-care (01) | DRG 244 ==
LOC: ED 22:29 → AC 04-20 08:09
PROVIDERS: Internal Medicine; Admitting Provider Nurse Practitioner Family; Emergency Provider Emergency Medicine; PCP Nurse Practitioner Family; Referring Provider Emergency Medicine; Visit Provider Nurse Practitioner Family
DX: K57.32 Diverticulitis of large intestine without perforation or abscess without bleeding (principal); I10 Essential (primary) hypertension; E78.2 Mixed hyperlipidemia; C50.919 Malignant neoplasm of unspecified site of unspecified female breast; Z86.718 Personal history of other venous thrombosis and embolism; Z79.01 Long term (current) use of anticoagulants; Z20.822 Contact with and (suspected) exposure to COVID-19
CPT/HCPCS: 36415; 36592; 71045; 74177; 80048; 80053; 83605; 83690; 84145; 85025; 87040; 87086; 87635; 96361; 96365; 96375; 99284; C9803; C9113; J0780; J1170; J1642; J2270; J2405; J2543; Q9967

== ENCOUNTER 2022-11-07 09:04 | Emergency (ER) | payer OTHER, MEDICAID, SELFPAY ==
[2022-11-07 09:07] VITALS: BP 170/92; PULSE 85; RESP 16; TEMP 36.9; O2SAT 98; BMI 35.9
--- NOTE | 2022-11-07 09:16 | DI.CT.S_ITS ---
PROCEDURE: CT HEAD/BRAIN WO CON INDICATIONS: Fall/pain TECHNIQUE: Noncontrast 4.5 mm thick angled axial sections acquired from the foramen magnum to the vertex, with coronal and sagittal reformats. For radiation dose reduction, the following was used: automated exposure control, adjustment of mA and/or kV according to patient size. COMPARISON: None. FINDINGS: Image quality: Excellent. CSF spaces: Basal cisterns are patent. No extra-axial fluid collections. Ventricles are normal in size and shape. Brain: No midline shift. No intracranial masses or hemorrhage. Humphreys-white matter interface is normal. Skull and face: Calvarium and visualized facial bones are intact, without suspicious lesions. Sinuses: Visualized sinuses and mastoids are clear. IMPRESSION: No evidence acute intracranial process. Dictated by: Lars Amin M.D. on 11/07/2022 at 10:01 Approved by: Lars Amin M.D. on 11/07/2022 at 10:02
--- NOTE | 2022-11-07 09:16 | DI.CT.S_ITS ---
PROCEDURE: CT CHEST ABD PEL WO CON INDICATIONS: Fall/injury/left side pain/sacral pain TECHNIQUE: After the administration of oral contrast, 5 mm thick sections acquired from the lung apices to the symphysis pubis. 5 mm thick coronal and sagittal reformats acquired, with additional 7 mm coronal MIP reformats through the lungs. For radiation dose reduction, the following was used: automated exposure control, adjustment of mA and/or kV according to patient size. COMPARISON: [facility], CT, CT ABDOMEN PELVIS W CON, 04/19/2021, 21:26. [facility], US, THYROID, 03/03/2017, 8:31. FINDINGS: Image quality: Excellent. CHEST: Lungs and pleura: No acute pulmonary opacities there is a 3 mm pulmonary nodule in the left lung base on image 190/5. It is likely unchanged from the previous study, which was performed using 5 mm thick slices. Reference previous image 8/3. Current imaging utilized 1 mm thick slices.. No pleural effusions or pneumothorax. Central and peripheral airways are patent are normal in caliber. Mediastinum: Heart size is normal. No pericardial effusion. No mediastinal adenopathy by CT size criteria. Thoracic aorta and central pulmonary arteries are normal in size. Esophagus is normal in caliber. No hiatal hernia. Chest wall: No axillary or supraclavicular adenopathy by size criteria. Thyroid gland contains a large left lobe nodule with extensive calcifications measuring approximately 3.4 x 2.7 cm. Size is not significantly different than on the previous ultrasound from 2017. ABDOMEN: Solid organs: Liver is normal in size. Moderate diffuse hepatic steatosis. Gallbladder is unremarkable without calcified gallstones per . Pancreas is normal in contours. Spleen is normal in size. No adrenal nodules. Both kidneys are normal in size, without hydronephrosis. There is a 4 mm nonobstructing middle pole stone of the right kidney. Peritoneum and bowel: Small and large bowel loops are normal in caliber and wall thickness. No free fluid or air. Nodes and vessels: No retroperitoneal or mesenteric adenopathy by size criteria. Aorta and inferior vena cava are normal in size. Miscellaneous: No ventral hernias. PELVIS: Genitourinary: Bladder wall thickness is normal. Miscellaneous: No inguinal hernias or adenopathy. Bones: No suspicious bony lesions. No vertebral body compression fractures. IMPRESSION: 1. No evidence of significant sequelae of acute trauma in the chest, abdomen, and pelvis. 2. 3.4 cm left lobe thyroid nodule. 3. Benign small left lower lobe pulmonary nodule. 4. Diffuse hepatic steatosis. 5. Extensive diverticulosis without evidence of diverticulitis. 6. Nephrolithiasis. Comment: Consider thyroid ultrasound on a nonemergent basis and consideration of FNA of the thyroid lesion if it has not been performed in the past with benign diagnosis. Dictated by: Lars Amin M.D. on 11/07/2022 at 10:17 Approved by: Lars Amin M.D. on 11/07/2022 at 10:40
--- NOTE | 2022-11-07 09:16 | DI.CT.S_ITS ---
PROCEDURE: CT CERVICAL SPINE WO CON INDICATIONS: Fall/pain TECHNIQUE: Noncontrast 3 mm thick sections acquired from the skull base to the T4 level. Sagittal and coronal reformats were then constructed. For radiation dose reduction, the following was used: automated exposure control, adjustment of mA and/or kV according to patient size. COMPARISON: [facility], , THYROID, 03/03/2017, 8:31. FINDINGS: Image quality: Excellent. Bones: No fractures or dislocations. Visualized superior ribs are intact. Cervical spondylosis centered at C5-C6 and C6-C7 with disc height loss and uncovertebral joint osteophytes. There is some degree of foraminal narrowing at these levels. Soft tissues: Prevertebral soft tissues are normal in thickness. No paravertebral hematomas. No apical pneumothoraces. Left thyroid nodule measuring approximately 3.4 cm in maximum diameter with extensive calcifications. This is similar in size to a previous thyroid ultrasound dated 03/03/2017. IMPRESSION: 1. No evidence acute cervical fracture or dislocation. 2. Cervical spondylosis. 3. Large left thyroid nodule. Comment: Consider nonemergent thyroid ultrasound for further evaluation of nodule, for consideration of possible FNA, if the patient has not had prior FNA with a benign biopsy result. Dictated by: Lars Amin M.D. on 11/07/2022 at 10:03 Approved by: Lars Amin M.D. on 11/07/2022 at 10:08
--- NOTE | 2022-11-07 09:19 | ED.FALL ---
HPI - Fall General Chief Complaint: Fall Stated Complaint: fell down 8 stairs last night takes thinners Time Seen by Provider: 11/07/22 09:12 Source: patient Mode of arrival: Ambulatory History of Present Illness HPI Narrative: Patient drove himself here from home. Complains of body wide pain but particularly left rib and sacral area. Patient is on Xarelto for history of DVT. Patient states she was walking outside her house down wooden steps, it was wet, she slipped and fell on her buttock, slid down 8 steps, at 1 point she did hit the back of her head on the steps. No loss of consciousness. No altered mental status, no confusion no nausea or vomiting. No vision changes. And is able to stand and walk. Denies any injury to the shoulders arms elbows wrists hands hips knees or ankles. Related Data Home Medications Medication Instructions Recorded Confirmed aspirin 81 mg chewable tablet 81 mg PO QDAY ##0 02/19/17 04/19/21 acetaminophen 325 mg tablet 325 mg PO PRN PRN Pain (Scale 03/21/17 04/19/21 Score 1-3) ##0 ibuprofen 200 mg tablet 200 mg PO PRN PRN Pain (Scale 07/07/17 04/19/21 Score 1-3) ##0 anastrozole 1 mg tablet 1 mg PO DAILY 04/19/21 04/19/21 gabapentin 100 mg capsule 300 mg PO BEDTIME 04/19/21 04/19/21 pantoprazole 40 mg tablet,delayed 40 mg PO BEDTIME 04/19/21 04/19/21 release prochlorperazine maleate 10 mg 5 mg PO TID 04/19/21 04/19/21 tablet rivaroxaban 20 mg tablet (Xarelto) 20 mg PO BEDTIME 04/19/21 04/19/21 Previous Rx's Medication Instructions Recorded metoprolol succinate 50 mg 50 mg PO QDAY ##30 02/27/17 tablet,extended release 24 hr lisinopril 10 mg tablet 10 mg PO QDAY #30 tabs 03/14/17 hydrocodone 5 mg-acetaminophen 325 1 tab PO Q4HP PRN #15 tabs 07/07/17 mg tablet ([place]) hydrocodone 5 mg-acetaminophen 325 1 tab PO Q6H PRN pain #12 tabs 11/07/22 mg tablet ondansetron 4 mg disintegrating 4 mg PO Q8H PRN nausea and 11/07/22 tablet vomiting #10 tabs Allergies Allergy/AdvReac Type Severity Reaction Status Date / Time No Known Allergies Allergy Unknown Verified 11/07/22 09:12 [NO KNOWN ALLERGIES] latex Allergy Verified 11/07/22 09:12 Review of Systems Review of Systems Narrative: GENERAL: negative chills, fatigue, malaise, fever, sweats. HEENT: negative sinus pain, ear pain, sore throat RESPIRATORY: negative dyspnea, cough CARDIOVASCULAR: negative chest pain, palpitations GASTROINTESTINAL: negative nausea, vomiting, abdominal pain : negative dysuria, frequency, hematuria MUSCULOSKELETAL: Positive muscle or bony pain SKIN: negative rash, skin lesions NEUROLOGIC: negative weakness, numbness ROS Unobtainable: All systems reviewed & are unremarkable except as noted in HPI and below Patient History Medical History Diverticulitis DVT (deep venous thrombosis) Essential hypertension (03/05/17) Invasive carcinoma of breast (03/21/17) Mixed hyperlipidemia (12/01/15) Nodule of left lobe of thyroid gland (03/05/17) Old myocardial infarction (12/01/15) Surgical History H/O bilateral mastectomy Hx of section Family History Mother Alive and well Father Myocardial infarction Son Autism Son Asthma Daughter Asthma Social History household members: family Smoking Status: Never smoker alcohol intake: never substance use type: does not use additional social history: 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 Nontender face no skin injury or bruising seen. There is tenderness to the occipital scalp no crepitus or step-off. EYES: Pupils equal round ENT: Mucous membranes moist. NECK: Trachea midline. Mild midline tenderness at C7 but no step-off. There is bilateral para cervical muscle tenderness and spasm. C-collar placed. There is no midline tenderness or step-off of the thoracic or lumbar spine, no bruising seen to the skin on the back. CARDIOVASCULAR: Regular rate and rhythm without murmurs RESPIRATORY: Clear to auscultation. Breath sounds equal bilaterally. No wheezes, rales, or rhonchi. GASTROINTESTINAL: Abdomen soft, non-tender EXTREMITIES: No gross deformities. Nontender bilateral shoulders elbows wrists hips knees and ankles. Patient able to stand and bear weight lift each leg independently without any limb pain. Able to bring both hands above the head and behind the back without any pain or discomfort. Able to cross arms across chest/midline without difficulty or pain BACK: No flank tenderness. There is mild left lateral lower rib tenderness but no crepitus or flail. There is bruising to the upper sacral area. NEURO: AOx4. Clear speech no facial droop light touch intact to bilateral face and hands with strong equal drama therapist, steady self gait no ataxia, not antalgic SKIN: Warm and dry PSYCH: Not anxious, is cooperative Initial Vital Signs Initial Vital Signs: Vital Signs Temperature 98.4 F 11/07/22 09:07 Pulse Rate 85 11/07/22 09:07 Respiratory Rate 16 11/07/22 09:07 Blood Pressure 170/92 H 11/07/22 09:07 Pulse Oximetry 98 11/07/22 09:07 Oxygen Delivery Method 11/07/22 09:07 Course Orders Ordered: ED Orders 11/07/22 09:16 CT cervical spine wo con Stat CT chest abd pel wo con Stat CT head/brain wo con Stat Vital Signs Vital signs: Vital Signs - 8 hr 11/07/22 09:07 Temperature 98.4 F Pulse Rate 85 Respiratory Rate 16 Blood Pressure 170/92 H Pulse Oximetry 98 Oxygen Delivery Method Room Air MDM - Fall Imaging Data CT scan - head: Radiologist's Impression: [address] [address] [address] Scan Report Signed Patient: Arabella Dukes MR#: [id number] : 1965 Acct:[id number] Age/Sex: 57 / F Date of Service: 11/07/22 Loc: ED Accession Number: [id number] ?? Procedure: CT head/brain wo con Ordering Provider: Akhil Rucker MD PROCEDURE:? CT HEAD/BRAIN WO CON ? INDICATIONS:? Fall/pain ? TECHNIQUE:? Noncontrast 4.5 mm thick angled axial sections acquired from the foramen magnum to the vertex, with coronal and sagittal reformats.? For radiation dose reduction, the following was used:? automated exposure control, adjustment of mA and/or kV according to patient size.? ? COMPARISON:? None. ? FINDINGS:? Image quality:? Excellent.? ? CSF spaces:? Basal cisterns are patent.? No extra-axial fluid collections.? Ventricles are normal in size and shape.? ? Brain:? No midline shift.? No intracranial masses or hemorrhage.? Humphreys-white matter interface is normal.? ? Skull and face:? Calvarium and visualized facial bones are intact, without suspicious lesions.? ? Sinuses:? Visualized sinuses and mastoids are clear.? ? IMPRESSION:? No evidence acute intracranial process. ? ? Dictated by: Lars Amin M.D. on 11/07/2022 at 10:01 ? ? Approved by: Lars Amin M.D. on 11/07/2022 at 10:02 ? CT - cervical spine: Radiologist's Impression: [place] [address] CT Scan Report Signed Patient: Arabella Dukes MR#: [id number] : 1965 Acct:[id number] Age/Sex: 57 / F Date of Service: 11/07/22 Loc: ED Accession Number: [id number] ?? Procedure: CT cervical spine wo con Ordering Provider: Akhil Rucker MD PROCEDURE:? CT CERVICAL SPINE WO CON ? INDICATIONS:? Fall/pain ? TECHNIQUE:? Noncontrast 3 mm thick sections acquired from the skull base to the T4 level.? Sagittal and coronal reformats were then constructed.? For radiation dose reduction, the following was used:? automated exposure control, adjustment of mA and/or kV according to patient size.? ? COMPARISON:? [facility], , THYROID, 03/03/2017, 8:31. ? FINDINGS:? Image quality:? Excellent.? ? Bones:? No fractures or dislocations.? Visualized superior ribs are intact.? Cervical spondylosis centered at C5-C6 and C6-C7 with disc height loss and uncovertebral joint osteophytes.? There is some degree of foraminal narrowing at these levels. ? Soft tissues:? Prevertebral soft tissues are normal in thickness.? No paravertebral hematomas.? No apical pneumothoraces.? Left thyroid nodule measuring approximately 3.4 cm in maximum diameter with extensive calcifications.? This is similar in size to a previous thyroid ultrasound dated 03/03/2017. ? ? IMPRESSION:? ? 1. No evidence acute cervical fracture or dislocation. ? 2. Cervical spondylosis. ? 3. Large left thyroid nodule. ? Comment:? Consider nonemergent thyroid ultrasound for further evaluation of nodule, for consideration of possible FNA, if the patient has not had prior FNA with a benign biopsy result. ? Dictated by: Lars Amin M.D. on 11/07/2022 at 10:03 ? ? Approved by: Lars Amin M.D. on 11/07/2022 at 10:08 ? CT chest abdomen and pelvis: Radiologist's Impression: [place] [address] CT Scan Report Signed Patient: Arabella Dukes MR#: [id number] : 1965 Acct:[id number] Age/Sex: 57 / F Date of Service: 11/07/22 Loc: ED Accession Number: [id number] ?? Procedure: CT chest abd pel wo con Ordering Provider: Akhil Rucker MD PROCEDURE:? CT CHEST ABD PEL WO CON ? INDICATIONS:? Fall/injury/left side pain/sacral pain ? TECHNIQUE:? After the administration of oral contrast, 5 mm thick sections acquired from the lung apices to the symphysis pubis.? 5 mm thick coronal and sagittal reformats acquired, with additional 7 mm coronal MIP reformats through the lungs.? For radiation dose reduction, the following was used:? automated exposure control, adjustment of mA and/or kV according to patient size.? ? COMPARISON:? [facility], CT, CT ABDOMEN PELVIS W CON, 04/19/2021, 21:26.? [facility], [place], THYROID, 03/03/2017, 8:31. ? FINDINGS:? Image quality:? Excellent.? ? CHEST:? Lungs and pleura:? No acute pulmonary opacities there is a 3 mm pulmonary nodule in the left lung base on image 190/5.? It is likely unchanged from the previous study, which was performed using 5 mm thick slices.? Reference previous image 05/01.? Current imaging utilized 1 mm thick slices..? No pleural effusions or pneumothorax.? Central and peripheral airways are patent are normal in caliber.? ? Mediastinum:? Heart size is normal.? No pericardial effusion.? No mediastinal adenopathy by CT size criteria.? Thoracic aorta and central pulmonary arteries are normal in size.? Esophagus is normal in caliber.? No hiatal hernia.? ? Chest wall:? No axillary or supraclavicular adenopathy by size criteria.? Thyroid gland contains a large left lobe nodule with extensive calcifications measuring approximately 3.4 x 2.7 cm.? Size is not significantly different than on the previous ultrasound from 2017.? ? ? ABDOMEN:? Solid organs:? Liver is normal in size.? Moderate diffuse hepatic steatosis.? Gallbladder is unremarkable without calcified gallstones per .? Pancreas is normal in contours.? Spleen is normal in size.? No adrenal nodules.? Both kidneys are normal in size, without hydronephrosis.? There is a 4 mm nonobstructing middle pole stone of the right kidney. ? Peritoneum and bowel:? Small and large bowel loops are normal in caliber and wall thickness.? No free fluid or air.? ? Nodes and vessels:? No retroperitoneal or mesenteric adenopathy by size criteria.? Aorta and inferior vena cava are normal in size.? ? Miscellaneous:? No ventral hernias.? ? ? PELVIS:? Genitourinary:? Bladder wall thickness is normal.? ? Miscellaneous:? No inguinal hernias or adenopathy.? ? Bones:? No suspicious bony lesions.? No vertebral body compression fractures.? ? IMPRESSION:? ? 1. No evidence of significant sequelae of acute trauma in the chest, abdomen, and pelvis. ? 2. 3.4 cm left lobe thyroid nodule. ? 3. Benign small left lower lobe pulmonary nodule. ? 4. Diffuse hepatic steatosis. ? 5. Extensive diverticulosis without evidence of diverticulitis. ? 6. Nephrolithiasis. ? Comment:? Consider thyroid ultrasound on a nonemergent basis and consideration of FNA of the thyroid lesion if it has not been performed in the past with benign diagnosis. ? ? Dictated by: Lars Amin M.D. on 11/07/2022 at 10:17 ? ? Approved by: Lars Amin M.D. on 11/07/2022 at 10:40 ? [facility] Narrative Medical decision making narrative: Patient drove himself here from home. Complains of body wide pain but particularly left rib and sacral area. Patient is on Xarelto for history of DVT. Patient states she was walking outside her house down wooden steps, it was wet, she slipped and fell on her buttock, slid down 8 steps, at 1 point she did hit the back of her head on the steps. No loss of consciousness. No altered mental status, no confusion no nausea or vomiting. No vision changes. And is able to stand and walk. Denies any injury to the shoulders arms elbows wrists hands hips knees or ankles. [facility] CC: Rib and gluteal pain Complicating co-morbidities: Patient on Xarelto Data collected from: Patient Medical records reviewed: No recent or previous ER visits here for fall/trauma Differential considered: Includes but not limited to sacral fracture/contusion/rib fractures/cervical strain/fracture/intracranial bleed/scalp hematoma Exam documented above, pertinent findings include: Bruising to the sacrum, tenderness to cervical spine, tenderness to left lateral ribs Imaging studies independently reviewed: CT head no acute process, CT cervical spine no acute process there is large left thyroid nodule, CT chest abdomen pelvis no acute process Re-evaluations: 10:46 a.m.. C-collar cleared, cervical CT no acute process. Reviewed with patient CT imaging. She does agree with short course of pain medication prescription hydrocodone to help temporary relief of pain. Return precautions reviewed with her. Not toxic at discharge. Reviewed with patient needs to follow up with primary care regarding thyroid nodule with ultrasound Discussion: Appropriate for discharge home. Exam and imaging otherwise reassuring. No neuro deficits. Short course pain medication prescription will be provided. Patient agrees with treatment plan. Return precautions reviewed with her, not toxic at discharge, patient is on blood thinner, appropriate for short course prescribed pain medication Diagnosis: Sacral contusion/scalp contusion/rib contusion/cervical strain Discharge Plan Departure Patient Disposition: Home Clinical Impression: Sacral contusion, Contusion of scalp, Contusion of rib on left side Instructions: DI for Contusion, DI for Rib Contusion, DI for Cervical Muscle Strain Activity Restrictions/Additional Instructions: See family doctor within a week for re-evaluation of your injury/pain. Do not drive or operate machinery when taking prescribed pain medication. May alternate cool packs and warm packs to sore areas 20 minutes at a time as needed for pain. Return if worse if any questions or concerns Prescriptions: New hydrocodone-acetaminophen 5-325 mg tablet 1 tab PO Q6H PRN (Reason: pain) Qty: 12 0RF ondansetron 4 mg tablet,disintegrating 4 mg PO Q8H PRN (Reason: nausea and vomiting) Qty: 10 0RF No Action aspirin 81 MG tablet,chewable 81 mg PO QDAY Qty: 0 Label Comments: Was told not to take by GI MD metoprolol succinate 50 MG tablet extended release 24 hr 50 mg PO QDAY Qty: 30 1RF lisinopril 10 MG tablet 10 mg PO QDAY Qty: 30 0RF acetaminophen 325 MG tablet 325 mg PO PRN PRN (Reason: Pain (Scale Score 1-3)) Qty: 0 ibuprofen 200 MG tablet 200 mg PO PRN PRN (Reason: Pain (Scale Score 1-3)) Qty: 0 hydrocodone-acetaminophen [[place]] 5 MG/325 MG tablet 1 tab PO Q4HP PRNQty: 15 0RF Rx Instructions: No longer taking anastrozole 1 mg tablet 1 mg PO DAILY Label Comments: TAKE ONE(1) TABLET BY MOUTH ONCE DAILY prochlorperazine maleate 10 mg tablet 5 mg PO TID Label Comments: TAKE ONE-HALF(1/2) TABLET BY MOUTH THREE(3) TIMES DAILY NEEDED FORNAUSEA pantoprazole 40 mg tablet,delayed release (DR/EC) 40 mg PO BEDTIME gabapentin 100 mg capsule 300 mg PO BEDTIME Label Comments: TAKE THREE(3) CAPSULES BY MOUTH THREE(3) TIMES DAILY Xarelto 20 mg tablet 20 mg PO BEDTIME Label Comments: TAKE ONE(1) TABLET BY MOUTH ONCE DAILY Referrals: Nevin Macedo ARNP [Primary Care Provider] - Stand Alone Forms: Patient Portal/API
--- NOTE | 2022-11-07 09:49 | PC.NURSE ---
Contusion to left occiput area of skull. No wound. Contusion with ecchymosis to left forearm and right buttocks. Pain to left posterior lower ribs.
[2022-11-07 11:03] VITALS: BP 127/87; PULSE 89; RESP 17; O2SAT 96
== END 2022-11-07 11:04 | disposition home or self-care (01) ==
PROVIDERS: Emergency Provider Emergency Medicine; PCP Nurse Practitioner Family
DX: S00.03XA Contusion of scalp, initial encounter (principal); S20.212A Contusion of left front wall of thorax, initial encounter; S30.0XXA Contusion of lower back and pelvis, initial encounter; W10.9XXA Fall (on) (from) unspecified stairs and steps, initial encounter; Z79.01 Long term (current) use of anticoagulants
CPT/HCPCS: 70450; 71250; 72125; 74176; 99284

== ENCOUNTER 2023-10-21 13:46 | Inpatient (IN) | payer OTHER, MEDICAID, SELFPAY ==
[2023-10-21] VITALS (22 sets, daily range): BP systolic 140–175; BP diastolic 78–92; PULSE 61–89; RESP 13–16; TEMP 36.2–37.1; O2SAT 92–99; BMI 38.9
--- NOTE | 2023-10-21 14:43 | ED.ABDPAIN ---
HPI - Abdominal Pain General Chief Complaint: Abdominal Pain Stated Complaint: acute diverticulitis attack Time Seen by Provider: 10/21/23 14:15 Mode of arrival: Wheelchair History of Present Illness HPI narrative: Patient 58-year-old female on Xarelto for DVT, history of breast cancer undergoing chemo therapy, recurrent diverticulitis fact has had 15 bouts in the last 18 years was admitted to [facility] on October 20 she was boarding in the ED but actually seen by hospitalist. They were unable to get her upstairs it appears that she got frustrated and left. She had a white count of 12.6 CT showed: 1. multifocal diverticulitis of the colon follow-up colonoscopy is recommended to exclude underlying neoplasm. 2. Normal appendix. 3. Nonobstructing bilateral renal calculi. Number for eccentric thickening at the gastroesophageal junction. Endoscopy is recommended to assess for neoplasm. Related Data Home Medications Medication Instructions Recorded Confirmed acetaminophen 325 mg tablet 325 mg PO PRN PRN Pain (Scale 03/21/17 04/19/21 Score 1-3) ##0 anastrozole 1 mg tablet 1 mg PO DAILY 04/19/21 10/21/23 gabapentin 100 mg capsule 300 mg PO BEDTIME 04/19/21 10/21/23 pantoprazole 40 mg tablet,delayed 40 mg PO BEDTIME 04/19/21 10/21/23 release prochlorperazine maleate 10 mg 5 mg PO TID 04/19/21 10/21/23 tablet rivaroxaban 20 mg tablet (Xarelto) 20 mg PO BEDTIME 04/19/21 10/21/23 lisinopril 10 mg tablet 40 mg PO QDAY 10/21/23 10/21/23 Previous Rx's Medication Instructions Recorded metoprolol succinate 50 mg 50 mg PO QDAY ##30 02/27/17 tablet,extended release 24 hr Allergies Allergy/AdvReac Type Severity Reaction Status Date / Time No Known Allergies Allergy Unknown Verified 10/21/23 14:00 [NO KNOWN ALLERGIES] latex Allergy Verified 10/21/23 14:00 Patient History Medical History DVT (deep venous thrombosis) Diverticulitis Invasive carcinoma of breast (03/21/17) Nodule of left lobe of thyroid gland (03/05/17) Essential hypertension (03/05/17) Old myocardial infarction (12/01/15) Mixed hyperlipidemia (12/01/15) Surgical History Hx of section H/O bilateral mastectomy Family History Mother Alive and well Father Myocardial infarction Son Autism Son Asthma Daughter Asthma Social History household members: family Smoking Status: Never smoker alcohol intake: current substance use type: does not use 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[place] Smoking Status: Never smoker alcohol intake frequency: holidays/special occasions only Substance Use Type: does not use Exam Initial Vital Signs Initial Vital Signs: Vital Signs Temperature 98.5 F 10/21/23 13:48 Pulse Rate 87 10/21/23 13:48 Respiratory Rate 13 10/21/23 13:48 Blood Pressure 175/92 H 10/21/23 13:48 Pulse Oximetry 96 10/21/23 13:48 Oxygen Delivery Method Room Air 10/21/23 13:48 Course Orders Ordered: ED Orders 10/21/23 14:40 CBC Auto Diff [Complete Blood Count AUTO DIFF] Stat CMP [Comprehensive Metabolic Panel] Stat Lipase Stat 10/21/23 15:27 XR abdomen min 2V Stat Acetaminophen (Acetaminophen 325 Mg Tablet) 650 mg PO Q6H PRN PRN Reason: Fever/Mild Pain (1-3) Last Admin: 10/21/23 17:52 Dose: 650 mg Documented By: MARLENY Anastrozole (Anastrozole 1 Mg Tablet) 1 mg PO DAILY PHYLLIS Gabapentin (Gabapentin 100 Mg Capsule) 300 mg PO BEDTIME PHYLLIS Hydromorphone HCl (Hydromorphone 0.5 Mg Inj) 0.5 mg IV Q2H PRN PRN Reason: Pain, Severe (7-10) Last Admin: 10/21/23 17:46 Dose: 0.5 mg Documented By: MARLENY Piperacillin Sod/Tazobactam (Sod 3.375 gm/ Sodium Chloride) 100 mls @ 25 mls/hr IV Q8H PHYLLIS Last Infusion: 10/21/23 17:16 Dose: 0 mls/hr Documented By: Admin: 10/21/23 16:38 Dose: 25 mls/hr Documented By: MPO Dextrose/Sodium Chloride (Dextrose 5%-0.9% Ns) 1,000 mls @ 100 mls/hr IV CONT PHYLLIS Last Admin: 10/21/23 17:42 Dose: 100 mls/hr Documented By: MARLENY Lisinopril (Lisinopril 10 Mg Tablet) 40 mg PO QDAY [facility] Metoprolol Succinate (Metoprolol Er 50 Mg Tablet) 50 mg PO QDAY [facility] Naloxone HCl (Naloxone 0.4 Mg/Ml Vial) 0.2 mg IV Q2MIN PRN PRN Reason: Opiate Reversal Non-Formulary Medication (Prochlorperazine Maleate) 5 mg PO TID [facility] Ondansetron HCl (Ondansetron 4 Mg/2 Ml Inj) 4 mg IV Q8HR PRN PRN Reason: Nausea And Vomiting Oxycodone HCl (Oxycodone Ir 5 Mg Tablet) 5 mg PO Q3H PRN PRN Reason: Pain, Moderate (4-6) Oxycodone HCl (Oxycodone Ir 10 Mg Tablet) 10 mg PO Q3H PRN PRN Reason: Pain, Severe (7-10) Pantoprazole Sodium (Pantoprazole Dr 40 Mg Tablet) 40 mg PO BEDTIME PHYLLIS Rivaroxaban (Rivaroxaban 10 Mg Tablet) 20 mg PO BEDTIME [facility] Discontinued Medications Hydrocodone Bitart/Acetaminophen (Hydrocodone/Acet 5/325 Tablet) 1 tab PO NOW ONE Stop: 10/21/23 14:57 Last Admin: 10/21/23 15:08 Dose: 1 tab Documented By: MANFRED Heparin Sodium (Porcine) (Heparin 5,000 Unit/Ml Vial) 5,000 unit SUBCUT BID [facility] Vital Signs Vital signs: Vital Signs - 8 hr 10/21/23 13:48 10/21/23 13:56 10/21/23 13:56 Temperature 98.5 F Pulse Rate 87 89 Respiratory Rate 13 Blood Pressure 175/92 H 175/92 H Pulse Oximetry 96 95 Oxygen Delivery Method Room Air 10/21/23 14:00 10/21/23 14:00 10/21/23 14:15 Temperature Pulse Rate 77 73 Respiratory Rate Blood Pressure 166/87 H Pulse Oximetry 97 95 Oxygen Delivery Method 10/21/23 14:30 10/21/23 14:30 10/21/23 14:43 Temperature Pulse Rate 71 71 Respiratory Rate Blood Pressure 147/83 H Pulse Oximetry 94 98 Oxygen Delivery Method 01/23/24 14:43 10/21/23 14:45 10/21/23 15:00 Temperature Pulse Rate 72 72 Respiratory Rate Blood Pressure 153/92 H Pulse Oximetry 99 94 Oxygen Delivery Method 10/21/23 15:00 10/21/23 15:15 10/21/23 15:36 Temperature Pulse Rate 74 77 Respiratory Rate Blood Pressure 142/86 H Pulse Oximetry 97 98 Oxygen Delivery Method 10/21/23 15:37 10/21/23 15:37 10/21/23 15:45 Temperature Pulse Rate 76 73 Respiratory Rate Blood Pressure 146/84 H Pulse Oximetry 98 97 Oxygen Delivery Method 10/21/23 16:00 10/21/23 16:15 10/21/23 16:30 Temperature Pulse Rate 70 72 71 Respiratory Rate Blood Pressure Pulse Oximetry 97 94 93 Oxygen Delivery Method MDM - Abdominal Pain Lab Data 10/21/23 14:40 10/21/23 14:40 Labs: Lab Results 10/21/23 Range/Units 14:40 WBC 7.3 (4.5-11.0) X10^3/uL RBC 3.93 L (4.0-5.2) X10^6/uL Hgb 13.1 (12.0-16.0) g/dL Hct 38.3 (36-46) % MCV 97.2 (80-100) fL MCH 33.4 (26-34) PG MCHC 34.3 (30-36) % RDW 12.4 (11.6-14.8) % Plt Count 284 (150-400) X10^3/uL Neut % (Auto) 55.1 (50-75) % Lymph % (Auto) 31.2 (25-40) % [place] % (Auto) 9.1 (3-14) % Eos % (Auto) 3.8 (2-4) % Baso % (Auto) 0.8 (0-2) % Neut # (Auto) 4000 (3151-3659) /uL Lymph # (Auto) 2300 (8738-5546) /uL [place] # (Auto) 700 (0-900) /uL Eos # (Auto) 300 (0-450) /uL Baso # (Auto) 100 (0-100) /uL Sodium 139 (137-145) mmol/L Potassium 3.7 (3.4-5.1) mmol/L Chloride 106 (98-107) mmol/L Carbon Dioxide 27 (22-32) mmol/L BUN 6 L (7-17) mg/dL Creatinine 0.74 (0.52-1.04) mg/dL Estimated GFR > 60 (>60) mL/min BUN/Creatinine Ratio 8.1 (6-22) Glucose 88 (70-100) mg/dL Calcium 9.1 (8.4-10.2) mg/dL Total Bilirubin 1.0 (0.2-1.3) mg/dL AST 32 (14-36) IU/L ALT 35 H (<35) IU/L Alkaline Phosphatase 72 (38-126) U/L Total Protein 7.1 (6.3-8.2) g/dL Albumin 4.0 (3.5-5.0) g/dL Globulin 3.1 (1.7-4.1) g/dL Albumin/Globulin Ratio 1.3 (1.0-2.8) Lipase 38 (23-300) U/L Imaging Data Abdominal x-ray: Radiologist's Impression: PROCEDURE: XR ABDOMEN MIN 2V INDICATIONS: diverticulitis, no bm, not passing gas TECHNIQUE: 2 views of the abdomen were acquired. COMPARISON: None. FINDINGS: Surgical changes and devices: None. Bowel: No pneumoperitoneum. Contrast within the colon is present. The bowel gas pattern is normal. Soft tissues: No masses; visualized solid organ contours appear normal in size. No suspicious abdominal calcifications. Bones: No suspicious bony abnormalities. IMPRESSION: Non-obstructive bowel gas pattern. Dictated by: Gracie Llanos M.D. on 10/21/2023 at 16:32 MDM Narrative Medical decision making narrative: Patient 58-year-old female with history of diverticulitis current breast cancer presenting today with left-sided abdominal pain. She is confirmed diverticulitis on CT at [facility] left Against Medical Advice from the emergency department and came 2 hours. She is having some minor pain. Vitals are stable. Records from [facility] have been received and reviewed. No abscess or perforation noted on CT. Work today shows improvement leukocytosis with WBC count of 7 previously 12. She has been receiving IV Zofran in the ED at [facility]. I discussed case with on-call general surgery at [facility]. They are familiar with patient. Report that patient ultimately will need surgery for diverticulitis but not emergently. They were admitting because she has not had bowel movement or pass gas in [address] Sofia on-call surgery at [facility] updated on symptoms test results agrees with consultation and admitting patient to medicine Dr. Walker updated on patient's symptoms test results and accepts patient Patient is given 1 dose of Zofran and [place] in the ED. She reports that previously she would had some sort of pain pill which helped and IV Dilaudid also helped Discharge Plan Departure Patient Disposition: Admitted as Observation Clinical Impression: Diverticulitis Admit Date/Time: 10/21/23 16:38 Admit Provider: José Manuel Walker
[2023-10-21 14:48] LABS: Add Manual Diff / Slide Review NO; Basophils Absolute Auto 100 /uL (0-100); Basophils Percent Auto 0.8 % (0-2); Eosinophils Absolute Auto 300 /uL (0-450); Eosinophils Percent Auto 3.8 % (2-4); Hematocrit 38.3 % (36-46); Hemoglobin 13.1 g/dL (12.0-16.0); Lymphocytes Absolute Auto 2300 /uL (1100-4500); Lymphocytes Percent Auto 31.2 % (25-40); Mean Corpuscular HGB Conc 34.3 % (30-36); Mean Corpuscular Hemoglobin 33.4 PG (26-34); Mean Corpuscular Volume 97.2 fL (80-100); Monocytes Absolute Auto 700 /uL (0-900); Monocytes Percent Auto 9.1 % (3-14); Neutrophils Absolute Auto 4000 /uL (1500-7000); Neutrophils Percent Auto 55.1 % (50-75); Platelet Count 284 X10^3/uL (150-400); Red Blood Cell Count 3.93 X10^6/uL (4.0-5.2); Red Cell Distribution Width 12.4 % (11.6-14.8); White Blood Cell Count 7.3 X10^3/uL (4.5-11.0)
[2023-10-21 15:06] LABS: Alanine Aminotransferase 35 IU/L (<35); Albumin Globulin Ratio 1.3 (1.0-2.8); Alkaline Phosphatase 72 U/L (38-126); Aspartate Aminotransferase 32 IU/L (14-36); BUN Creatinine Ratio 8.1 (6-22); Blood Urea Nitrogen 6 mg/dL (7-17); Calcium 9.1 mg/dL (8.4-10.2); Carbon Dioxide 27 mmol/L (22-32); Chloride 106 mmol/L (98-107); Estimated Glomerular Filt Rate > 60 mL/min (>60); Globulin 3.1 g/dL (1.7-4.1); Glucose 88 mg/dL (70-100); HEMOLYSIS < 15 (0-50); Lipase 38 U/L (23-300); Potassium 3.7 mmol/L (3.4-5.1); Sodium 139 mmol/L (137-145); Total Protein 7.1 g/dL (6.3-8.2)
[2023-10-21] MEDS: HYDROCODONE/ACET 5/325 TABLET 1 TAB PO (15:08)
--- NOTE | 2023-10-21 15:27 | DI.RAD.S_ITS ---
PROCEDURE: XR ABDOMEN MIN 2V INDICATIONS: diverticulitis, no bm, not passing gas TECHNIQUE: 2 views of the abdomen were acquired. COMPARISON: None. FINDINGS: Surgical changes and devices: None. Bowel: No pneumoperitoneum. Contrast within the colon is present. The bowel gas pattern is normal. Soft tissues: No masses; visualized solid organ contours appear normal in size. No suspicious abdominal calcifications. Bones: No suspicious bony abnormalities. IMPRESSION: Non-obstructive bowel gas pattern. Dictated by: Gracie Llanos M.D. on 10/21/2023 at 16:32 Approved by: Gracie Llanos M.D. on 10/21/2023 at 16:32
[2023-10-21] MEDS: PIPERACILLIN/TAZO 3.375 GM in SODIUM CHLORIDE 0.9% 100 ML IV (16:38)
--- NOTE | 2023-10-21 16:39 | PM.HP.1 ---
History of Present Illness History of Present Illness Date Patient Seen: 10/21/23 Time Patient Seen: 16:39 Chief complaint: acute diverticulitis attack Narrative: The patient is a 58-year-old female with history of DVT on Xarelto, breast cancer undergoing chemotherapy, and recurrent diverticulitis. The patient was admitted to [facility] yesterday and was boarding in the ED but ultimately left against medical advice. The patient presents today with ongoing abdominal pain. She notes 15 bouts of diverticulitis over the years. CT scan was reviewed by the emergency department physician and revealed multifocal diverticulitis of the colon with a normal appendix and nonobstructive bilateral renal calculi. Emergency physician discussed the case with surgery on-call, Dr. Sofia, who will see the patient as well. The patient has also apparently not been having bowel movements or passing much gas. A plain x-ray was negative for evidence of bowel obstruction or ileus. She notes the pain is primarily left lower quadrant. The CT indicated some right sided inflammation as well. She denies any right-sided abdominal pain. She also denies any nausea but tends to require several days of medication to improve and is usually nothing by mouth for the 1st several days. She does have anorexia and has not had a bowel movement in several days. 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 Medications and Allergies Home Medications Medication Instructions Recorded Confirmed Type aspirin 81 mg chewable tablet 81 mg PO QDAY ##0 02/19/17 04/19/21 History metoprolol succinate 50 mg 50 mg PO QDAY ##30 02/27/17 04/19/21 Rx tablet,extended release 24 hr lisinopril 10 mg tablet 10 mg PO QDAY #30 tabs 03/14/17 04/19/21 Rx acetaminophen 325 mg tablet 325 mg PO PRN PRN Pain (Scale 03/21/17 04/19/21 History Score 1-3) ##0 hydrocodone 5 mg-acetaminophen 325 1 tab PO Q4HP PRN #15 tabs 07/07/17 04/19/21 Rx mg tablet ([place]) ibuprofen 200 mg tablet 200 mg PO PRN PRN Pain (Scale 07/07/17 04/19/21 History Score 1-3) ##0 anastrozole 1 mg tablet 1 mg PO DAILY 04/19/21 04/19/21 History gabapentin 100 mg capsule 300 mg PO BEDTIME 04/19/21 04/19/21 History pantoprazole 40 mg tablet,delayed 40 mg PO BEDTIME 04/19/21 04/19/21 History release prochlorperazine maleate 10 mg 5 mg PO TID 04/19/21 04/19/21 History tablet rivaroxaban 20 mg tablet (Xarelto) 20 mg PO BEDTIME 04/19/21 04/19/21 History hydrocodone 5 mg-acetaminophen 325 1 tab PO Q6H PRN pain #12 tabs 11/07/22 Rx mg tablet ondansetron 4 mg disintegrating 4 mg PO Q8H PRN nausea and 11/07/22 Rx tablet vomiting #10 tabs Allergies Allergy/AdvReac Type Severity Reaction Status Date / Time No Known Allergies Allergy Unknown Verified 10/21/23 14:00 [NO KNOWN ALLERGIES] latex Allergy Verified 10/21/23 14:00 Review of Systems Review of Systems Narrative: All else reviewed and otherwise unremarkable with the exception of that noted in history and physical. Exam Vital Signs (past 8 hours): - 10/21/23 13:48 Temperature 98.5 F Pulse Rate 87 Respiratory Rate 13 Blood Pressure 175/92 H Pulse Oximetry 96 Oxygen Delivery Method Room Air Oxygen Delivery Method Room Air Narrative Exam Narrative: NAD, Oriented and with fluent speech Pupils are symmetric, EOMI. Anicteric sclera. Normal neck, and oropharynx. Neck is supple, midline trachea, no adenopathy. Lungs are clear, normal rate and effort. Heart is regular, no murmur, or gallop, or rub. Abdomen is soft with some tenderness in the right lower quadrant and left lower quadrant. Extremities are free of edema. Good pedal pulses. Skin is free of rash, bruising, or lesions. Joints are unremarkable and without deformity. Normal judgment. Motor strength is 5/5 in all extremities, normal cranial nerves grossly. Objective Imaging Abdominal x-ray: Radiologist's impression: IMPRESSION: Non-obstructive bowel gas pattern. Labs 10/21/23 14:40 10/21/23 14:40 Labs: Laboratory Results - last 24 hr 10/21/23 14:40 WBC 7.3 RBC 3.93 L Hgb 13.1 Hct 38.3 MCV 97.2 MCH 33.4 MCHC 34.3 RDW 12.4 Plt Count 284 Neut % (Auto) 55.1 Lymph % (Auto) 31.2 [place] % (Auto) 9.1 Eos % (Auto) 3.8 Baso % (Auto) 0.8 Neut # (Auto) 4000 Lymph # (Auto) 2300 [place] # (Auto) 700 Eos # (Auto) 300 Baso # (Auto) 100 Sodium 139 Potassium 3.7 Chloride 106 Carbon Dioxide 27 BUN 6 L Creatinine 0.74 Estimated GFR > 60 BUN/Creatinine Ratio 8.1 Glucose 88 Calcium 9.1 Total Bilirubin 1.0 AST 32 ALT 35 H Alkaline Phosphatase 72 Total Protein 7.1 Albumin 4.0 Globulin 3.1 Albumin/Globulin Ratio 1.3 Lipase 38 Assessment & Plan Assessment & Plan narrative: 1. Recurrent diverticulitis, present on admission and active. 2. Subacute DVT, present on admission and stable. 3. Breast cancer, present on admission and stable. Plan: -IV Zosyn q.8 hours. -IV fluids, and analgesics as needed. -surgical consult initiated in the ED. -continue chronic medications including apixaban. Patient is full resuscitation. Patient will be admitted to observation status., initial expectation is for 1 midnight of medically necessary hospital care. Time Spent With Patient Time with patient: 30 to 49 minutes with 50% spent counseling/coordinating care Quality MIPS - Admit I confirm the patient?s Advance Care Plan is present, Code status is documented, Surrogate decision maker is in patient?s record [If Yes, STOP here]: Yes MIPS - Meds 'Current medications' to include all prescriptions, [id number] products, herbals, cannabis/cannabidiol products, and vitamin/mineral/dietary (nutritional) supplements. I have utilized all available resources to obtain, update, or review the patient?s current medications. [If Yes, STOP here]: Yes
[2023-10-21] MEDS: DEXTROSE 5%-0.9% NS 1,000 ML 100 ML IV (17:42)
[2023-10-21] MEDS: HYDROMORPHONE 0.5 MG INJ IV ×2 (17:46→21:10)
[2023-10-21] MEDS: ACETAMINOPHEN 325 MG TABLET 650 MG PO (17:52)
[2023-10-21] MEDS: ANASTROZOLE 1 MG TABLET PO (21:01)
[2023-10-21] MEDS: GABAPENTIN 100 MG CAPSULE 300 MG PO (21:01)
[2023-10-21] MEDS: RIVAROXABAN 10 MG TABLET 20 MG PO (21:01)
[2023-10-21] MEDS: PANTOPRAZOLE DR 40 MG TABLET PO (21:01)
[2023-10-21] MEDS: PROMETHAZINE 25 MG TABLET 6.25 MG PO (21:02)
[2023-10-21] MEDS: lisinopriL 10 MG TABLET 40 MG PO (21:46)
[2023-10-21] MEDS: METOPROLOL ER 50 MG TABLET PO (21:46)
[2023-10-21] MEDS: OXYCODONE IR 10 MG TABLET PO (23:32)
[2023-10-22] VITALS (7 sets, daily range): BP systolic 104–145; BP diastolic 56–84; PULSE 65–80; RESP 15–16; TEMP 36.1–36.7; O2SAT 94–100
[2023-10-22] MEDS: PIPERACILLIN/TAZO 3.375 GM in SODIUM CHLORIDE 0.9% 100 ML IV ×3 (00:18→16:36)
[2023-10-22] MEDS: OXYCODONE IR 10 MG TABLET PO ×4 (04:00→22:32)
[2023-10-22 05:44] LABS: Add Manual Diff / Slide Review NO; Basophils Absolute Auto 0 /uL (0-100); Basophils Percent Auto 0.5 % (0-2); Eosinophils Absolute Auto 400 /uL (0-450); Eosinophils Percent Auto 5.1 % (2-4); Hematocrit 38.3 % (36-46); Lymphocytes Absolute Auto 2100 /uL (1100-4500); Lymphocytes Percent Auto 29.3 % (25-40); Mean Corpuscular Volume 97.1 fL (80-100); Monocytes Absolute Auto 600 /uL (0-900); Monocytes Percent Auto 8.5 % (3-14); Neutrophils Absolute Auto 4000 /uL (1500-7000); Neutrophils Percent Auto 56.6 % (50-75); Platelet Count 272 X10^3/uL (150-400); Red Blood Cell Count 3.94 X10^6/uL (4.0-5.2); Red Cell Distribution Width 12.3 % (11.6-14.8); White Blood Cell Count 7.1 X10^3/uL (4.5-11.0)
[2023-10-22 06:02] LABS: BUN Creatinine Ratio 9.7 (6-22); Blood Urea Nitrogen 7 mg/dL (7-17); Calcium 8.8 mg/dL (8.4-10.2); Carbon Dioxide 26 mmol/L (22-32); Chloride 107 mmol/L (98-107); Estimated Glomerular Filt Rate > 60 mL/min (>60); Glucose 100 mg/dL (70-100); HEMOLYSIS < 15 (0-50); Potassium 3.7 mmol/L (3.4-5.1); Sodium 140 mmol/L (137-145)
[2023-10-22] MEDS: ANASTROZOLE 1 MG TABLET PO (08:42)
[2023-10-22] MEDS: PROMETHAZINE 25 MG TABLET 6.25 MG PO ×3 (08:43→20:12)
[2023-10-22] MEDS: DEXTROSE 5%-0.9% NS 1,000 ML 100 ML IV ×2 (08:47→19:56)
--- NOTE | 2023-10-22 09:10 | PM.PN.1 ---
Subjective Subjective Interval history: She feels about the same as yesterday. Pain is persistent and not improved. The pain is left lower quadrant without radiation. She is anorexia but denies nausea or vomiting. No flatus or bowel movement. KUB yesterday was negative for evidence of obstruction or ileus. Exam Vital Signs (past 8 hours): - 10/22/23 03:00 10/22/23 08:00 Temperature 98.0 F 97.3 F L Pulse Rate 80 66 Respiratory Rate 16 16 Blood Pressure 138/66 104/63 Pulse Oximetry 98 96 Oxygen Flow Rate 0 0 Oxygen Delivery Method Room Air Oxygen Flow Rate 0 Narrative Exam Narrative: NAD, no distress. She appears mildly uncomfortable. Lungs are clear, normal effort. Heart is regular, no murmur. Abdomen is distended with hypoactive bowel tones. There are some left lower quadrant tenderness without guarding or rebound. Extremities are free of edema. Objective Labs 10/22/23 05:15 10/22/23 05:15 Labs: Laboratory Results - last 24 hr 10/21/23 10/22/23 14:40 05:15 WBC 7.3 7.1 RBC 3.93 L 3.94 L Hgb 13.1 13.0 Hct 38.3 38.3 MCV 97.2 97.1 MCH 33.4 33.0 MCHC 34.3 34.0 RDW 12.4 12.3 Plt Count 284 272 Neut % (Auto) 55.1 56.6 Lymph % (Auto) 31.2 29.3 [place] % (Auto) 9.1 8.5 Eos % (Auto) 3.8 5.1 H Baso % (Auto) 0.8 0.5 Neut # (Auto) 4000 4000 Lymph # (Auto) 2300 2100 [place] # (Auto) 700 600 Eos # (Auto) 300 400 Baso # (Auto) 100 0 Sodium 139 140 Potassium 3.7 3.7 Chloride 106 107 Carbon Dioxide 27 26 BUN 6 L 7 Creatinine 0.74 0.72 Estimated GFR > 60 > 60 BUN/Creatinine Ratio 8.1 9.7 Glucose 88 100 Calcium 9.1 8.8 Total Bilirubin 1.0 AST 32 ALT 35 H Alkaline Phosphatase 72 Total Protein 7.1 Albumin 4.0 Globulin 3.1 Albumin/Globulin Ratio 1.3 Lipase 38 [facility] Medical History DVT (deep venous thrombosis) Diverticulitis Invasive carcinoma of breast (03/21/17) Nodule of left lobe of thyroid gland (03/05/17) Essential hypertension (03/05/17) Old myocardial infarction (12/01/15) Mixed hyperlipidemia (12/01/15) Surgical History Hx of section H/O bilateral mastectomy Family History Mother Alive and well Father Myocardial infarction Son Autism Son Asthma Daughter Asthma Social History household members: family Smoking Status: Never smoker alcohol intake: current substance use type: does not use 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 Recurrent diverticulitis, present on admission and active. She remains in pain and will require ongoing IV antibiotics. 2. Subacute DVT, present on admission and stable. Continue chronic anticoagulation. 3. Breast cance with history of bilateral mastectomy, present on admission and stable. 4. Remote duodenal ulcer, not present on admission or active. 5. Osteopenia, treated with Reclast. Present on admission and stable. 6. Obstructive sleep apnea, present on admission and stable. 7. Class 2 obesity with BMI of 39, present on admission and stable. 8. Reported history of CAD and NSTEMI, present on admission and not active. 9. Essential hypertension, present on admission and stable. Plan: -IV Zosyn q.8 hours. Will continue. -IV fluids, and analgesics as needed. -surgical consult initiated in the ED. -continue chronic medications including apixaban. -Will alert primary GI (Mika at [facility]), of admission. She will require a second [place] of medically necessary hospital-level services. Quality VTE Deep Vein Thrombosis/Pulmonary Embolism Present on Admission: No
[2023-10-22] MEDS: ACETAMINOPHEN 325 MG TABLET 650 MG PO ×2 (13:16→19:41)
[2023-10-22] MEDS: OXYCODONE IR 5 MG TABLET PO ×2 (13:17→16:36)
--- NOTE | 2023-10-22 14:01 | PC.NURSE ---
Assumed patient care. Nurse introduced self to patient. Patient and aid are in the room preparing for a shower. Patient is SL at this time for showering. Will cont. plan of care for today after shower.
--- NOTE | 2023-10-22 17:33 | P.CONS_ITS ---
History of Present Illness Consult details Date Patient Seen: 10/22/23 Time Patient Seen: 17:33 Chief complaint: acute diverticulitis attack Narrative: Arabella is a 58-year-old woman who presented with diverticulitis. She has had episodes of diverticulitis for many years and has never required any surgery. Currently she is bloated distended and unable to pass gas or bowel movements. She has a minimal appetite. She has a remote ruby on rails developer who told her that her diverticulitis has always been in different portions of her colon and therefore she would need a total colectomy if she were to have any surgery. Her recent CT scan shows inflammation around the sigmoid colon and near the hepatic flexure. No free fluid or abscess. She has been started on IV antibiotics here. Meds Home Medications and Allergies Home Medications Medication Instructions Recorded Confirmed Type metoprolol succinate 50 mg 50 mg PO QDAY ##30 02/27/17 10/21/23 Rx tablet,extended release 24 hr acetaminophen 325 mg tablet 325 mg PO PRN PRN Pain (Scale 03/21/17 10/21/23 History Score 1-3) ##0 anastrozole 1 mg tablet 1 mg PO DAILY 04/19/21 10/21/23 History gabapentin 100 mg capsule 300 mg PO BEDTIME 04/19/21 10/21/23 History pantoprazole 40 mg tablet,delayed 40 mg PO BEDTIME 04/19/21 10/21/23 History release prochlorperazine maleate 10 mg 5 mg PO TID 04/19/21 10/21/23 History tablet rivaroxaban 20 mg tablet (Xarelto) 20 mg PO BEDTIME 04/19/21 10/21/23 History lisinopril 10 mg tablet 40 mg PO QDAY 10/21/23 10/21/23 History Allergies Allergy/AdvReac Type Severity Reaction Status Date / Time No Known Allergies Allergy Unknown Verified 10/21/23 14:00 [NO KNOWN ALLERGIES] latex Allergy Verified 10/21/23 14:00 Exam Vital Signs (past 8 hours): - 10/22/23 12:00 Temperature 97.3 F L Pulse Rate 69 Respiratory Rate 16 Blood Pressure 145/84 H Pulse Oximetry 100 Oxygen Flow Rate 0 Oxygen Delivery Method Room Air Oxygen Flow Rate 0 Narrative Exam Narrative: Abdomen is distended and tender to palpation in the left lower quadrant Objective Labs 10/22/23 05:15 10/22/23 05:15 Labs: Laboratory Results - last 24 hr 10/22/23 05:15 WBC 7.1 RBC 3.94 L Hgb 13.0 Hct 38.3 MCV 97.1 MCH 33.0 MCHC 34.0 RDW 12.3 Plt Count 272 Neut % (Auto) 56.6 Lymph % (Auto) 29.3 [place] % (Auto) 8.5 Eos % (Auto) 5.1 H Baso % (Auto) 0.5 Neut # (Auto) 4000 Lymph # (Auto) 2100 [place] # (Auto) 600 Eos # (Auto) 400 Baso # (Auto) 0 Sodium 140 Potassium 3.7 Chloride 107 Carbon Dioxide 26 BUN 7 Creatinine 0.72 Estimated GFR > 60 BUN/Creatinine Ratio 9.7 Glucose 100 Calcium 8.8 PFSH Medical History DVT (deep venous thrombosis) Diverticulitis Invasive carcinoma of breast (03/21/17) Nodule of left lobe of thyroid gland (03/05/17) Essential hypertension (03/05/17) Old myocardial infarction (12/01/15) Mixed hyperlipidemia (12/01/15) Surgical History Hx of section H/O bilateral mastectomy Family History Mother Alive and well Father Myocardial infarction Son Autism Son Asthma Daughter Asthma Social History household members: family Tobacco & Substance Use Smoking Status: Never smoker alcohol intake: current substance use type: does not use Additional Social History 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 Low chance that she will need any emergent surgery.
[2023-10-22] MEDS: METOPROLOL ER 50 MG TABLET PO (20:11)
[2023-10-22] MEDS: PANTOPRAZOLE DR 40 MG TABLET PO (20:11)
[2023-10-22] MEDS: lisinopriL 10 MG TABLET 40 MG PO (20:11)
[2023-10-22] MEDS: RIVAROXABAN 10 MG TABLET 20 MG PO (20:12)
[2023-10-22] MEDS: GABAPENTIN 100 MG CAPSULE 300 MG PO (20:12)
[2023-10-22] MEDS: SODIUM CHLORIDE 0.9% FLUSH 10 ML IV (20:14)
--- NOTE | 2023-10-22 23:30 | PC.NURSE ---
Addendum entered by Sneha Rogers R.N. 10/23/23 05:12: Right hand and forearm with non pitting edema and decreased motion in fingers related to swelling. Upper arm has no swelling and is soft to touch and IV with blood return noted. Virginie, RN coordinator, examined also. IV securement netting removed and warm blanket applied. Original Note: Patient is alert and oriented. Breath sounds CTA with RA sat of 94%. HRR. Denied nausea. BT present but has not had BM since 10/17 and denies passing flatus. Abdomen with sharp pain in left quads and very tender to touch; receiving oxycodone q3h + tylenol as needed. Pain slightly improved from prior to admit per patient but states pain is exacerbated by any movement. Is voiding on toilet and denies dysuria. Is able to move herself in bed. Provided SBA when up to bathroom. Had on bilateral calf SCD's at shift change but requested they be removed when settled for sleep as cannot sleep with them on. Is on chemo precautions. Fall risk score is moderate but calls appropriately so bed alarm is not in use.
[2023-10-23] VITALS (7 sets, daily range): BP systolic 124–151; BP diastolic 68–91; PULSE 60–72; RESP 16; TEMP 35.7–36.3; O2SAT 93–97
[2023-10-23] MEDS: PIPERACILLIN/TAZO 3.375 GM in SODIUM CHLORIDE 0.9% 100 ML IV ×3 (00:31→16:18)
[2023-10-23] MEDS: OXYCODONE IR 10 MG TABLET PO ×7 (01:38→22:46)
[2023-10-23 05:45] LABS: Add Manual Diff / Slide Review NO; Basophils Absolute Auto 0 /uL (0-100); Basophils Percent Auto 0.7 % (0-2); Eosinophils Absolute Auto 400 /uL (0-450); Eosinophils Percent Auto 6.8 % (2-4); Hemoglobin 12.3 g/dL (12.0-16.0); Lymphocytes Absolute Auto 2600 /uL (1100-4500); Lymphocytes Percent Auto 40.1 % (25-40); Mean Corpuscular HGB Conc 35.1 % (30-36); Mean Corpuscular Hemoglobin 33.7 PG (26-34); Mean Corpuscular Volume 96.2 fL (80-100); Monocytes Absolute Auto 700 /uL (0-900); Monocytes Percent Auto 10.1 % (3-14); Neutrophils Absolute Auto 2800 /uL (1500-7000); Neutrophils Percent Auto 42.3 % (50-75); Platelet Count 281 X10^3/uL (150-400); Red Blood Cell Count 3.64 X10^6/uL (4.0-5.2); Red Cell Distribution Width 12.1 % (11.6-14.8); White Blood Cell Count 6.6 X10^3/uL (4.5-11.0)
[2023-10-23 05:59] LABS: BUN Creatinine Ratio 7.1 (6-22); Blood Urea Nitrogen 5 mg/dL (7-17); Calcium 8.7 mg/dL (8.4-10.2); Carbon Dioxide 26 mmol/L (22-32); Chloride 108 mmol/L (98-107); Estimated Glomerular Filt Rate > 60 mL/min (>60); Glucose 106 mg/dL (70-100); HEMOLYSIS < 15 (0-50); Potassium 3.5 mmol/L (3.4-5.1); Sodium 140 mmol/L (137-145)
[2023-10-23] MEDS: DEXTROSE 5%-0.9% NS 1,000 ML 100 ML IV (06:01)
[2023-10-23] MEDS: SODIUM CHLORIDE 0.9% FLUSH 10 ML IV ×2 (08:13→21:02)
[2023-10-23] MEDS: PROMETHAZINE 25 MG TABLET 6.25 MG PO ×3 (08:13→21:03)
[2023-10-23] MEDS: HYDROMORPHONE 0.5 MG INJ IV ×4 (09:22→21:01)
[2023-10-23] MEDS: ACETAMINOPHEN 325 MG TABLET 650 MG PO ×2 (09:22→21:03)
[2023-10-23] MEDS: POTASSIUM CHLORIDE 20 MEQ TAB 40 MEQ PO (11:09)
--- NOTE | 2023-10-23 14:11 | CM.DANOTE ---
Patient is a 58 yo female who was admitted on 10/21/23 for Acute Diverticulitis. Pt has [employer] and [employer] for insurance and her PCP is Nevin Macedo. EMR was reviewed. Per MD, pt to have Surgeon consult to determine if surgicial intervention needed. Per Surgeon, currently plan is conservative tx with IV-Abx and no surgery at this time as pt having some flatus. Per MD, pt remains on IV-Abx but continuse to have some pain and not yet medically stable to d/c yet today. SW met briefly bedside with pt and explained role and she confirms she lives on [address] with her Sig Other Ed and both are independent at baseline. Pt states she has had similar medical situations in the past and is hopeful to have some relief from the discomfort and have bm soon but does not anticipate any needs at d/c and has transport home back to [facility] when medically stable. Plan: SW to follow closely to confirm no surgical intervention needed and plan of home with SO and any further identified needs. RICKY Castillo
[2023-10-23] MEDS: polyethylene glycoL 3350 17 GM POWD.PACK PO (14:29)
--- NOTE | 2023-10-23 14:31 | P.PN_ITS ---
Subjective Subjective Interval history: She feels about the same as yesterday. Pain is persistent and not improved. The pain is left lower quadrant without radiation. She is anorexia but denies nausea or vomiting. No flatus or bowel movement. KUB was negative for evidence of obstruction or ileus 2 days ago. Exam Vital Signs (past 8 hours): - 10/23/23 08:00 10/23/23 12:00 Temperature 97.3 F L 96.3 F L Pulse Rate 72 64 Respiratory Rate 16 16 Blood Pressure 132/91 H 124/75 Pulse Oximetry 96 93 Oxygen Delivery Method Room Air Oxygen Flow Rate 0 Narrative Exam Narrative: NAD, no distress. She appears mildly uncomfortable. Lungs are clear, normal effort. Heart is regular, no murmur. Abdomen is distended with hypoactive bowel tones. There are some left lower quadrant tenderness without guarding or rebound. Extremities are free of edema. Objective Labs 10/23/23 04:55 10/23/23 04:55 Labs: Laboratory Results - last 24 hr 10/23/23 04:55 WBC 6.6 RBC 3.64 L Hgb 12.3 Hct 35.0 L MCV 96.2 MCH 33.7 MCHC 35.1 RDW 12.1 Plt Count 281 Neut % (Auto) 42.3 L Lymph % (Auto) 40.1 H [place] % (Auto) 10.1 Eos % (Auto) 6.8 H Baso % (Auto) 0.7 Neut # (Auto) 2800 Lymph # (Auto) 2600 [place] # (Auto) 700 Eos # (Auto) 400 Baso # (Auto) 0 Sodium 140 Potassium 3.5 Chloride 108 H Carbon Dioxide 26 BUN 5 L Creatinine 0.70 Estimated GFR > 60 BUN/Creatinine Ratio 7.1 Glucose 106 H Calcium 8.7 PFSH Medical History DVT (deep venous thrombosis) Diverticulitis Invasive carcinoma of breast (03/21/17) 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 Recurrent diverticulitis, present on admission and active. She remains in pain and will require ongoing IV antibiotics. WBC normal. Consider CT 2. Subacute DVT, present on admission and stable. Continue chronic anticoagulation. 3. Breast cance with history of bilateral mastectomy, present on admission and stable. 4. Remote duodenal ulcer, not present on admission or active. 5. Osteopenia, treated with Reclast. Present on admission and stable. 6. Obstructive sleep apnea, present on admission and stable. 7. Class 2 obesity with BMI of 39, present on admission and stable. 8. Reported history of CAD and NSTEMI, present on admission and not active. 9. Essential hypertension, present on admission and stable. Plan: -IV Zosyn q.8 hours. Will continue. -IV fluids, and analgesics as needed. Added laxitive therapies today to see if improvement in pain with bowel movement. -surgical consult appreciated, discussed with surgeon today. -continue chronic medications including apixaban, lisinopril, metoprolol. Quality VTE Deep Vein Thrombosis/Pulmonary Embolism Present on Admission: No
[2023-10-23] MEDS: PANTOPRAZOLE DR 40 MG TABLET PO (21:02)
[2023-10-23] MEDS: GABAPENTIN 100 MG CAPSULE 300 MG PO (21:02)
[2023-10-23] MEDS: RIVAROXABAN 10 MG TABLET 20 MG PO (21:02)
[2023-10-23] MEDS: METOPROLOL ER 50 MG TABLET PO (21:02)
[2023-10-23] MEDS: lisinopriL 10 MG TABLET 40 MG PO (21:02)
[2023-10-23] MEDS: ANASTROZOLE 1 MG TABLET PO (21:03)
[2023-10-24] VITALS (9 sets, daily range): BP systolic 108–146; BP diastolic 67–81; PULSE 60–78; RESP 16–19; TEMP 35.9–37.1; O2SAT 93–96
[2023-10-24] MEDS: PIPERACILLIN/TAZO 3.375 GM in SODIUM CHLORIDE 0.9% 100 ML IV ×4 (00:51→23:55)
[2023-10-24] MEDS: OXYCODONE IR 10 MG TABLET PO ×5 (01:52→23:51)
[2023-10-24 05:40] LABS: BUN Creatinine Ratio 4.4 (6-22); Blood Urea Nitrogen 3 mg/dL (7-17); Calcium 8.8 mg/dL (8.4-10.2); Carbon Dioxide 26 mmol/L (22-32); Chloride 109 mmol/L (98-107); Estimated Glomerular Filt Rate > 60 mL/min (>60); Glucose 99 mg/dL (70-100); HEMOLYSIS < 15 (0-50); Potassium 3.6 mmol/L (3.4-5.1); Sodium 140 mmol/L (137-145)
[2023-10-24] MEDS: ACETAMINOPHEN 325 MG TABLET 650 MG PO ×2 (09:32→16:30)
[2023-10-24] MEDS: PROMETHAZINE 25 MG TABLET 6.25 MG PO ×3 (09:32→20:15)
--- NOTE | 2023-10-24 12:24 | PM.PN.1 ---
Subjective Subjective Interval history: She feels a bit better today with small improvement in pain. The pain is left lower quadrant without radiation. passing flatus without bowel movement today. Exam Vital Signs (past 8 hours): - 10/24/23 08:00 10/24/23 12:00 Temperature 97.3 F L 97.8 F Pulse Rate 67 60 Respiratory Rate 19 19 Blood Pressure 108/67 130/72 Pulse Oximetry 93 96 Oxygen Flow Rate 0 0 Oxygen Delivery Method Room Air Oxygen Flow Rate 0 Narrative Exam Narrative: NAD, no distress. She appears mildly uncomfortable. Lungs are clear, normal effort. Heart is regular, no murmur. Abdomen is distended with hypoactive bowel tones. There are some left lower quadrant tenderness without guarding or rebound. Extremities are free of edema. Objective Labs 10/23/23 04:55 10/24/23 04:52 Labs: Laboratory Results - last 24 hr 10/24/23 04:52 Sodium 140 Potassium 3.6 Chloride 109 H Carbon Dioxide 26 BUN 3 L Creatinine 0.68 Estimated GFR > 60 BUN/Creatinine Ratio 4.4 L Glucose 99 Calcium 8.8 [facility] Medical History DVT (deep venous thrombosis) Diverticulitis Invasive carcinoma of breast (03/21/17) Nodule of left lobe of thyroid gland (03/05/17) Essential hypertension (03/05/17) Old myocardial infarction (12/01/15) Mixed hyperlipidemia (12/01/15) Surgical History Hx of section H/O bilateral mastectomy Family History Mother Alive and well Father Myocardial infarction Son Autism Son Asthma Daughter Asthma Social History household members: family Smoking Status: Never smoker alcohol intake: current substance use type: does not use 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 Recurrent diverticulitis, present on admission and active. She remains in pain and will require ongoing IV antibiotics. WBC normal. Consider CT 2. Subacute DVT, present on admission and stable. Continue chronic anticoagulation. 3. Breast cance with history of bilateral mastectomy, present on admission and stable. 4. Remote duodenal ulcer, not present on admission or active. 5. Osteopenia, treated with Reclast. Present on admission and stable. 6. Obstructive sleep apnea, present on admission and stable. 7. Class 2 obesity with BMI of 39, present on admission and stable. 8. Reported history of CAD and NSTEMI, present on admission and not active. 9. Essential hypertension, present on admission and stable. Plan: -IV Zosyn q.8 hours. Will continue. -IV fluids, and analgesics as needed. Added laxitive therapies to see if improvement in pain with bowel movement. now passing flatus. Discussed adding bisacodyl vs watchful waiting, patient elects watchful waiting with current therapies. -surgical consult appreciated, discussed with surgeon today. -continue chronic medications including xarelto, lisinopril, metoprolol. Quality VTE Deep Vein Thrombosis/Pulmonary Embolism Present on Admission: No
--- NOTE | 2023-10-24 12:58 | CM.DPC ---
DCP Cont: Per MD, pt remains painful and unclear if due to some GI scarring or from discomfort of not having bowel movement yet and increased bowel regimen today towards anticipated bm. Pt remains on IV-Abx currently and not yet medically stable to discharge today. RICKY Castillo
[2023-10-24] MEDS: HYDROMORPHONE 0.5 MG INJ IV (16:31)
[2023-10-24] MEDS: RIVAROXABAN 10 MG TABLET 20 MG PO (20:13)
[2023-10-24] MEDS: GABAPENTIN 100 MG CAPSULE 300 MG PO (20:13)
[2023-10-24] MEDS: ANASTROZOLE 1 MG TABLET PO (20:14)
[2023-10-24] MEDS: METOPROLOL ER 50 MG TABLET PO (20:14)
[2023-10-24] MEDS: PANTOPRAZOLE DR 40 MG TABLET PO (20:15)
[2023-10-24] MEDS: lisinopriL 10 MG TABLET 40 MG PO (20:16)
[2023-10-24] MEDS: SODIUM CHLORIDE 0.9% FLUSH 10 ML IV ×2 (20:17→23:55)
[2023-10-24] MEDS: ONDANSETRON 4 MG/2 ML INJ IV (21:18)
[2023-10-25] VITALS: BP 122/79; PULSE 75; RESP 16; TEMP 36.4; O2SAT 96
[2023-10-25] MEDS: OXYCODONE IR 10 MG TABLET PO ×2 (03:34→14:33)
[2023-10-25] MEDS: HYDROMORPHONE 0.5 MG INJ IV (03:40)
[2023-10-25] MEDS: SODIUM CHLORIDE 0.9% FLUSH 10 ML IV ×2 (03:47→09:06)
[2023-10-25 04:00] VITALS: BP 108/58; PULSE 70; RESP 18; TEMP 36.1; O2SAT 93
[2023-10-25 07:53] VITALS: BP 117/67; PULSE 74; RESP 16; TEMP 36.5; O2SAT 92
[2023-10-25] MEDS: PIPERACILLIN/TAZO 3.375 GM in SODIUM CHLORIDE 0.9% 100 ML IV (08:55)
[2023-10-25] MEDS: PROMETHAZINE 25 MG TABLET 6.25 MG PO (09:12)
--- NOTE | 2023-10-25 10:26 | PM.DS.1 ---
History of Present Illness History of Present Illness Chief complaint: acute diverticulitis attack Narrative: The patient is a 58-year-old female with history of DVT on Xarelto, breast cancer undergoing chemotherapy, and recurrent diverticulitis. The patient was admitted to [facility] yesterday and was boarding in the ED but ultimately left against medical advice. The patient presents today with ongoing abdominal pain. She notes 15 bouts of diverticulitis over the years. CT scan was reviewed by the emergency department physician and revealed multifocal diverticulitis of the colon with a normal appendix and nonobstructive bilateral renal calculi. Emergency physician discussed the case with surgery on-call, Dr. Sofia, who will see the patient as well. The patient has also apparently not been having bowel movements or passing much gas. A plain x-ray was negative for evidence of bowel obstruction or ileus. She notes the pain is primarily left lower quadrant. The CT indicated some right sided inflammation as well. She denies any right-sided abdominal pain. She also denies any nausea but tends to require several days of medication to improve and is usually nothing by mouth for the 1st several days. She does have anorexia and has not had a bowel movement in several days. Discharge Providers Provider Date of admission: 10/21/23 16:38 Discharge Date: 10/25/23 Primary care physician: MIGUEL Walters Consults: None. Discharge provider: José Manuel Walker MD Summary Hospital Course Discharge Diagnosis: 1. Recurrent diverticulitis, present on admission and improved. She requests discharge home today (10/25). 2. Subacute DVT, present on admission and stable. Continue chronic anticoagulation. 3. Breast cance with history of bilateral mastectomy, present on admission and stable. 4. Remote duodenal ulcer, not present on admission or active. 5. Osteopenia, treated with Reclast. Present on admission and stable. 6. Obstructive sleep apnea, present on admission and stable. 7. Class 2 obesity with BMI of 39, present on admission and stable. 8. Reported history of CAD and NSTEMI, present on admission and not active. 9. Essential hypertension, present on admission and stable. Hospital Course: She was admitted with acute diverticulitis. She was treated with IV antibiotics and bowel rest and did well. She was able to slowly advanced to full liquids. On the day of discharge she felt that she was improved to the point that she would like to return home. Her plan would be to do a very slow diet advanced at home over the next week, which she is done many times in the past. She will continue to take oral antibiotics for another 5 days and be given some pain medication as well. She will call her GI doctor, Dr. Brennan early in the week to check in with him. I will also send an electronic message to him today notify him of her discharge. Status at Discharge Cognitive/behavioral status at discharge: oriented Functional status at discharge: independent ambulation Overall status at discharge: patient is progressing back to baseline Exam Vital Signs (past 8 hours): - 10/25/23 04:00 10/25/23 07:53 Temperature 96.9 F L 97.7 F Pulse Rate 70 74 Respiratory Rate 18 16 Blood Pressure 108/58 L 117/67 Pulse Oximetry 93 92 Oxygen Flow Rate 0 Oxygen Delivery Method Room Air Oxygen Flow Rate 0 Narrative Exam Narrative: No acute distress, fluent speech Lungs clear, normal effort Abdomen is soft, less tender. No guarding. Extremities are free of edema. Objective Imaging Abdominal x-ray: Radiologist's impression: Non-obstructive bowel gas pattern. CT scan of the abdomen was obtained at [facility] prior to her leaving there against medical advice and presenting here. This revealed limited diverticulitis and no evidence of abscess or bowel obstruction. Labs 10/23/23 04:55 10/24/23 04:52 [facility] Medical History DVT (deep venous thrombosis) Diverticulitis Invasive carcinoma of breast (03/21/17) Nodule of left lobe of thyroid gland (03/05/17) Essential hypertension (03/05/17) Old myocardial infarction (12/01/15) Mixed hyperlipidemia (12/01/15) Surgical History Hx of section H/O bilateral mastectomy Family History Mother Alive and well Father Myocardial infarction Son Autism Son Asthma Daughter Asthma Social History household members: family Smoking Status: Never smoker alcohol intake: current substance use type: does not use 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 Recurrent diverticulitis, present on admission and improved. 2. Subacute DVT, present on admission and stable. Continue chronic anticoagulation. 3. Breast cance with history of bilateral mastectomy, present on admission and stable. 4. Remote duodenal ulcer, not present on admission or active. 5. Osteopenia, treated with Reclast. Present on admission and stable. 6. Obstructive sleep apnea, present on admission and stable. 7. Class 2 obesity with BMI of 39, present on admission and stable. 8. Reported history of CAD and NSTEMI, present on admission and not active. 9. Essential hypertension, present on admission and stable. Plan of Treatment: She will return home today to the care of her . She will do a very slow diet advance over the next week. She will contact her GI doctor, Dr. Brennan early in the week for further recommendations. She will continue on oral antibiotics, Augmentin, for 5 more days and Percocet as needed for pain. Discharge Plan Discharge Plan Patient Disposition: Home Provider Discharge Comment: She feels better, will do slow diet advance at home. Close follow up with GI (Dr. Brennan). Discharge orders & Medications Prescriptions: New amoxicillin-pot clavulanate [Augmentin] 500-125 mg tablet 1 tab PO TID Qty: 20 0RF oxycodone-acetaminophen [Percocet] 5-325 mg tablet 1 tab PO Q8H PRN (Reason: pain) Qty: 20 0RF Continued metoprolol succinate 50 MG tablet extended release 24 hr 50 mg PO QDAY Qty: 30 1RF acetaminophen 325 MG tablet 325 mg PO PRN PRN (Reason: Pain (Scale Score 1-3)) Qty: 0 anastrozole 1 mg tablet 1 mg PO DAILY Patient Comments: TAKE ONE(1) TABLET BY MOUTH ONCE DAILY prochlorperazine maleate 10 mg tablet 5 mg PO TID Patient Comments: TAKE ONE-HALF(1/2) TABLET BY MOUTH THREE(3) TIMES DAILY NEEDED FORNAUSEA pantoprazole 40 mg tablet,delayed release (DR/EC) 40 mg PO BEDTIME gabapentin 100 mg capsule 300 mg PO BEDTIME Patient Comments: TAKE THREE(3) CAPSULES BY MOUTH THREE(3) TIMES DAILY Xarelto 20 mg tablet 20 mg PO BEDTIME Patient Comments: TAKE ONE(1) TABLET BY MOUTH ONCE DAILY lisinopril 10 MG tablet 40 mg PO QDAY Medication counseling provided by Pharmacist: No Follow up/Referrals: Nevin Macedo ARNP [Primary Care Provider] - Discharge Health Status Multidrug resistant organism: No MDRO Diet/Activity/Treatments Diet: Diet as Tolerated Visit Report/Discharge Packet Stand Alone Forms: Patient Portal/API Discharge Data Primary Care Provider: Nevin Macedo Quality VTE Deep Vein Thrombosis/Pulmonary Embolism Present on Admission: No
[2023-10-25] MEDS: ACETAMINOPHEN 325 MG TABLET 650 MG PO (10:32)
[2023-10-25 12:00] VITALS: O2SAT 95
== END 2023-10-25 14:35 | disposition home or self-care (01) | DRG 244 ==
LOC: ED 14:15 → AC 17:17
PROVIDERS: Admitting Provider Hospitalist; Emergency Provider Emergency Medicine; PCP Nurse Practitioner Family; Referring Provider Emergency Medicine; Visit Provider Hospitalist
DX: K57.92 Diverticulitis of intestine, part unspecified, without perforation or abscess without bleeding (principal); C50.912 Malignant neoplasm of unspecified site of left female breast; I25.10 Atherosclerotic heart disease of native coronary artery without angina pectoris; I82.402 Acute embolism and thrombosis of unspecified deep veins of left lower extremity; Z79.01 Long term (current) use of anticoagulants
CPT/HCPCS: 36415; 74019; 80048; 80053; 83690; 85025; 99284; 99285; J1170; J2405; J2543

== ENCOUNTER 2024-03-27 14:05 | Emergency (ER) | payer OTHER, MEDICAID, SELFPAY ==
[2023-10-21 16:45] VITALS: BMI 38.9
[2024-03-27] VITALS (8 sets, daily range): BP systolic 141–187; BP diastolic 85–88; PULSE 100–105; RESP 18–27; TEMP 36.8; O2SAT 94–100; BMI 37.2
[2024-03-27 14:54] LABS: Add Manual Diff / Slide Review NO; Basophils Absolute Auto 100 /uL (0-100); Basophils Percent Auto 0.8 % (0-2); Eosinophils Absolute Auto 200 /uL (0-450); Eosinophils Percent Auto 1.3 % (2-4); Hematocrit 40.3 % (36-46); Lymphocytes Absolute Auto 3000 /uL (1100-4500); Lymphocytes Percent Auto 24.9 % (25-40); Mean Corpuscular HGB Conc 34.7 % (30-36); Mean Corpuscular Hemoglobin 33.9 PG (26-34); Mean Corpuscular Volume 97.7 fL (80-100); Monocytes Absolute Auto 900 /uL (0-900); Monocytes Percent Auto 7.7 % (3-14); Neutrophils Absolute Auto 7800 /uL (1500-7000); Neutrophils Percent Auto 65.3 % (50-75); Platelet Count 284 X10^3/uL (150-400); Red Blood Cell Count 4.12 X10^6/uL (4.0-5.2); Red Cell Distribution Width 13.1 % (11.6-14.8)
[2024-03-27 15:04] LABS: Alanine Aminotransferase 54 IU/L (<35); Albumin 4.6 g/dL (3.5-5.0); Albumin Globulin Ratio 1.5 (1.0-2.8); Alkaline Phosphatase 96 U/L (38-126); Aspartate Aminotransferase 42 IU/L (14-36); BUN Creatinine Ratio 19.7 (6-22); Bilirubin Total 0.9 mg/dL (0.2-1.3); Blood Urea Nitrogen 13 mg/dL (7-17); Carbon Dioxide 25 mmol/L (22-32); Chloride 108 mmol/L (98-107); Estimated Glomerular Filt Rate > 60 mL/min (>60); Glucose 103 mg/dL (70-100); HEMOLYSIS < 15 (0-50); Lipase 46 U/L (23-300); Sodium 139 mmol/L (137-145); Total Protein 7.6 g/dL (6.3-8.2)
--- NOTE | 2024-03-27 16:47 | EKG_ITS ---
[address] [address] Test Date: 2024-03-27 Pat Name: Arabella Dukes Department: Room: Gender: Female [employer]: HOMERO : 1965 Requested By: Order Number: [id number] Reading MD: José Manuel Walker Measurements Intervals [place] Rate: 102 P: 39 MT: 138 QRS: -5 QRSD: 82 T: 21 QT: 338 QTc: 440 Interpretive Statements Sinus tachycardia Electronically Signed On 03-28-2024 17:10:52 PDT by José Manuel Walker
--- NOTE | 2024-03-27 16:47 | DI.CT.S_ITS ---
PROCEDURE: CT ABDOMEN PELVIS W CON INDICATIONS: LLQ pain, hx diverticulitis, evaluate for perforation TECHNIQUE: After the administration of intravenous contrast, axial sections acquired from the lung bases to the pubic symphysis. Coronal and sagittal reformats were performed. For radiation dose reduction, the following was used: automated exposure control, adjustment of mA and/or kV according to patient size. COMPARISON: [facility], CT, CT ABDOMEN PELVIS W CON, 04/19/2021, 21:26. [facility], CT, CT ABDOMEN PELVIS WITH CONTRAST, 10/20/2023, 15:16. FINDINGS: Image quality: Diagnostic. Lower Chest: No significant findings. ABDOMEN: Liver: No solid mass. Hepatic steatosis. Gallbladder: No radiopaque gallstones or wall thickening. Biliary ducts: No biliary dilation. Pancreas: No ductal dilation. Spleen: Size is within normal limits. Adrenal Glands: No adrenal nodules. Kidneys and Ureters: Nonobstructing bilateral renal stones measuring up to 5 millimeters. No hydronephrosis. No solid mass. No complex renal cystic lesion which requires follow up. Stomach and Bowel: Extensive diverticulosis with wall thickening and stranding involving the distal descending and proximal sigmoid colon. No extraluminal gas or organized fluid collections. Diverticulosis is seen throughout the colon. No other areas of diverticulitis. Normal appendix. Peritoneum: No abnormal intraperitoneal fluid. No free air. Ventral Wall: No significant ventral hernia. Abdominal Nodes: No retroperitoneal or mesenteric adenopathy by size criteria. Vessels: Aorta and inferior vena cava are normal in size. PELVIS: Pelvic Organs: Unremarkable. Bladder: No bladder wall thickening, accounting for underdistention. Pelvic Nodes: No enlarged lymph nodes. Miscellaneous: No inguinal hernias are seen. Bones: No aggressive osseous abnormality. IMPRESSION: 1. Acute uncomplicated diverticulitis of the distal descending and proximal sigmoid colon. No evidence of perforation or abscess. 2. Nonobstructing bilateral renal stones. 3. Hepatic steatosis. Dictated by: Ulysses Maya M.D. on 03/27/2024 at 16:54 Approved by: Ulysses Maya M.D. on 03/27/2024 at 16:57
--- NOTE | 2024-03-27 16:51 | ED_ITS ---
HPI - Abdominal Pain General Chief Complaint: Abdominal Pain Stated Complaint: HAVING A 'DIBERTICULITIS' ATTACK Time Seen by Provider: 03/27/24 14:40 Source: patient Mode of arrival: Ambulatory History of Present Illness HPI narrative: Patient is a 58-year-old female with a history of breast cancer, on xarelto for DVT while on anastrozole, and recurrent diverticulitis, has had 16 episodes in the past 18 years, who presents with abdominal pain located in the left lower quadrant since 4:00 a.m.. She reports her last bowel movement was at least 2 days ago. She is on prochlorperazine to treat the nausea she gets from taking anastrozole but she ran out of the prochlorperazine and used ondansetron instead for nausea. Ondansetron causes constipation for her. She had a colonoscopy in the spring after most recent hospitalization and was referred to a specialist to discussed colectomy. She saw a colorectal surgeon at who advised that she would likely need a total colectomy due to her pandiverticulosis but she is trying to avoid surgery. She took Tylenol this morning when the pain started but no other pain medicines today. She denies vomiting, fever, chills, chest pain, dysuria. Related Data Home Medications Medication Instructions Recorded Confirmed acetaminophen 325 mg tablet 325 mg PO PRN PRN Pain (Scale 03/21/17 10/21/23 Score 1-3) ##0 anastrozole 1 mg tablet 1 mg PO DAILY 04/19/21 10/21/23 gabapentin 100 mg capsule 300 mg PO BEDTIME 04/19/21 10/21/23 pantoprazole 40 mg tablet,delayed 40 mg PO BEDTIME 04/19/21 10/21/23 release prochlorperazine maleate 10 mg 5 mg PO TID 04/19/21 10/21/23 tablet rivaroxaban 20 mg tablet (Xarelto) 20 mg PO BEDTIME 04/19/21 10/21/23 lisinopril 10 mg tablet 40 mg PO QDAY 10/21/23 10/21/23 Previous Rx's Medication Instructions Recorded metoprolol succinate 50 mg 50 mg PO QDAY ##30 02/27/17 tablet,extended release 24 hr amoxicillin 875 mg-potassium 1 tab PO Q8H diverticulitis 9 days 03/27/24 clavulanate 125 mg tablet #27 tabs oxycodone 5 mg tablet 5 mg PO Q6H PRN pain #14 tabs 03/27/24 Allergies Allergy/AdvReac Type Severity Reaction Status Date / Time adhesive tape AdvReac Rash Verified 03/27/24 14:18 Review of Systems Review of Systems ROS Unobtainable: All systems reviewed & are unremarkable except as noted in HPI and below Patient History Medical History DVT (deep venous thrombosis) Diverticulitis Invasive carcinoma of breast (03/21/17) Nodule of left lobe of thyroid gland (03/05/17) Essential hypertension (03/05/17) Old myocardial infarction (12/01/15) Mixed hyperlipidemia (12/01/15) Surgical History Hx of section H/O bilateral mastectomy Family History Mother Alive and well Father Myocardial infarction Son Autism Son Asthma Daughter Asthma Social History household members: family Smoking Status: Never smoker alcohol intake: current substance use type: does not use additional social history: 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 Well-developed patient, in acute distress. NEURO: AOx3. HEAD: Atraumatic. Normocephalic. EYES: Pupils equal round and reactive. Extraocular motions intact. No scleral icterus. No injection or drainage. ENT: Nose without bleeding or purulent drainage. Throat without erythema, tonsillar hypertrophy or exudate. Airway patent. NECK: Trachea midline. Non tender CARDIOVASCULAR: Regular rate and rhythm without murmurs, gallops, or rubs. RESPIRATORY: Clear to auscultation. Breath sounds equal bilaterally. No wheezes, rales, or rhonchi. GASTROINTESTINAL: Active bowel tones. Abdomen soft, distended, tender over left lower quadrant, pain radiates to left lower quadrant with palpation of right upper quadrant. EXTREMITIES: No edema or joint tenderness. SKIN: No rash or erythema of visible areas Initial Vital Signs Initial Vital Signs: Vital Signs Temperature 98.2 F 03/27/24 14:18 Pulse Rate 101 H 03/27/24 14:18 Respiratory Rate 18 03/27/24 14:18 Blood Pressure 141/88 H 03/27/24 14:18 Pulse Oximetry 100 03/27/24 14:18 Oxygen Delivery Method Room Air 03/27/24 14:18 Course Orders Ordered: Discontinued Medications Amoxicillin/Clavulanate Potassium (Amoxicillin/Clav 875/125 Mg) 3 tab PO NOW ONE Stop: 03/27/24 18:11 Last Admin: 03/27/24 18:41 Dose: 3 tab Documented By: ZACH Hydromorphone HCl (Hydromorphone 0.5 Mg Inj) 0.5 mg IV NOW ONE Stop: 03/27/24 16:45 Last Admin: 03/27/24 16:52 Dose: 0.5 mg Documented By: ZACH Hydromorphone HCl (Hydromorphone 0.5 Mg Inj) 0.5 mg IV NOW ONE Stop: 03/27/24 17:17 Last Admin: 03/27/24 17:24 Dose: 0.5 mg Documented By: ZACH Sodium Chloride (Normal Saline 0.9%) 1,000 mls @ 1,000 mls/hr IV BOLUS ONE Stop: 03/27/24 17:43 Last Infusion: 03/27/24 18:00 Dose: Infused Documented By: Admin: 03/27/24 16:54 Dose: 1,000 mls/hr Documented By: ZACH Ondansetron HCl (Ondansetron 4 Mg/2 Ml Inj) 4 mg IV NOW PRN PRN Reason: Nausea And Vomiting Ondansetron HCl (Ondansetron 4 Mg Odt) 4 mg PO NOW PRN PRN Reason: Nausea And Vomiting Oxycodone/Acetaminophen (Oxycodone/Apap 5/325 Prepack) 1 bottle MISC DIRECTED ONE Stop: 03/27/24 18:11 Last Admin: 03/27/24 18:41 Dose: 1 bottle Documented By: ZACH Vital Signs Vital signs: Vital Signs - 8 hr 03/27/24 14:18 03/27/24 16:05 03/27/24 16:30 Temperature 98.2 F Pulse Rate 101 H 101 H Respiratory Rate 18 Blood Pressure 141/88 H 181/85 H Pulse Oximetry 100 98 Oxygen Delivery Method Room Air Room Air 03/27/24 16:30 03/27/24 17:00 03/27/24 17:00 Temperature Pulse Rate 105 H 101 H Respiratory Rate 24 Blood Pressure 187/87 H Pulse Oximetry 97 95 Oxygen Delivery Method Room Air Room Air MDM - Abdominal Pain Lab Data 03/27/24 14:45 03/27/24 14:45 Labs: Lab Results 03/27/24 Range/Units 14:45 WBC 12.0 H (4.5-11.0) X10^3/uL RBC 4.12 (4.0-5.2) X10^6/uL Hgb 14.0 (12.0-16.0) g/dL Hct 40.3 (36-46) % MCV 97.7 (80-100) fL MCH 33.9 (26-34) PG MCHC 34.7 (30-36) % RDW 13.1 (11.6-14.8) % Plt Count 284 (150-400) X10^3/uL Neut % (Auto) 65.3 (50-75) % Lymph % (Auto) 24.9 L (25-40) % [place] % (Auto) 7.7 (3-14) % Eos % (Auto) 1.3 L (2-4) % Baso % (Auto) 0.8 (0-2) % Neut # (Auto) 7800 H (8959-3335) /uL Lymph # (Auto) 3000 (2403-1638) /uL [place] # (Auto) 900 (0-900) /uL Eos # (Auto) 200 (0-450) /uL Baso # (Auto) 100 (0-100) /uL Sodium 139 (137-145) mmol/L Potassium 4.0 (3.4-5.1) mmol/L Chloride 108 H (98-107) mmol/L Carbon Dioxide 25 (22-32) mmol/L BUN 13 (7-17) mg/dL Creatinine 0.66 (0.52-1.04) mg/dL Estimated GFR > 60 (>60) mL/min BUN/Creatinine Ratio 19.7 (6-22) Glucose 103 H (70-100) mg/dL Calcium 9.0 (8.4-10.2) mg/dL Total Bilirubin 0.9 (0.2-1.3) mg/dL AST 42 H (14-36) IU/L ALT 54 H (<35) IU/L Alkaline Phosphatase 96 (38-126) U/L Total Protein 7.6 (6.3-8.2) g/dL Albumin 4.6 (3.5-5.0) g/dL Globulin 3.0 (1.7-4.1) g/dL Albumin/Globulin Ratio 1.5 (1.0-2.8) Lipase 46 (23-300) U/L Point of care testing: Urine Dip Bedside Urine Glucose Negative Bedside Urine Bilirubin - Negative Bedside Urine Ketone - Negative Urine Specific [place] 1.015 Bedside Urine Occult Blood - Negative Bedside Urine pH 6.0 Bedside Urine Protein - Negative Bedside Urine Urobilinogen - Negative Bedside Urine Nitrite - Negative Bedside Urine Leukocytes - Negative Esterase Imaging Data CT scan - abdomen/pelvis: Radiologist's Impression: PROCEDURE: CT ABDOMEN PELVIS W CON INDICATIONS: LLQ pain, hx diverticulitis, evaluate for perforation TECHNIQUE: After the administration of intravenous contrast, axial sections acquired from the lung bases to the pubic symphysis. Coronal and sagittal reformats were performed. For radiation dose reduction, the following was used: automated exposure control, adjustment of mA and/or kV according to patient size. COMPARISON: [facility], CT, CT ABDOMEN PELVIS W CON, 04/19/2021, 21:26. [facility], CT, CT ABDOMEN PELVIS WITH CONTRAST, 10/20/2023, 15:16. FINDINGS: Image quality: Diagnostic. Lower Chest: No significant findings. ABDOMEN: Liver: No solid mass. Hepatic steatosis. Gallbladder: No radiopaque gallstones or wall thickening. Biliary ducts: No biliary dilation. Pancreas: No ductal dilation. Spleen: Size is within normal limits. Adrenal Glands: No adrenal nodules. Kidneys and Ureters: Nonobstructing bilateral renal stones measuring up to 5 millimeters. No hydronephrosis. No solid mass. No complex renal cystic lesion which requires follow up. Stomach and Bowel: Extensive diverticulosis with wall thickening and stranding involving the distal descending and proximal sigmoid colon. No extraluminal gas or organized fluid collections. Diverticulosis is seen throughout the colon. No other areas of diverticulitis. Normal appendix. Peritoneum: No abnormal intraperitoneal fluid. No free air. Ventral Wall: No significant ventral hernia. Abdominal Nodes: No retroperitoneal or mesenteric adenopathy by size criteria. Vessels: Aorta and inferior vena cava are normal in size. PELVIS: Pelvic Organs: Unremarkable. Bladder: No bladder wall thickening, accounting for underdistention. Pelvic Nodes: No enlarged lymph nodes. Miscellaneous: No inguinal hernias are seen. Bones: No aggressive osseous abnormality. IMPRESSION: 1. Acute uncomplicated diverticulitis of the distal descending and proximal sigmoid colon. No evidence of perforation or abscess. 2. Nonobstructing bilateral renal stones. 3. Hepatic steatosis. Dictated by: Ulysses Maya M.D. on 03/27/2024 at 16:54 Approved by: Ulysses Maya M.D. on 03/27/2024 at 16:57 ECG Data Interpretation: EKG shows sinus tachycardia, rate 102, OH 138, WRS 82, no ST-T changes. Reviewed with Dr. Mazariegos. [facility] Narrative Medical decision making narrative: Patient is a 58-year-old female with history of breast cancer, on anastrozole, recurrent diverticulitis who presents with 12 hours of severe left lower quadrant pain. Labs show mild elevation in white blood cell count 12k and mild elevation of AST and ALT without elevation of other liver function tests. Is given 1 L normal saline and IV hydromorphone for pain. CT abdomen and pelvis completed and show diverticulitis without perforation or abscess. Patient lives in [place]. Discussed discharge home tonight with antibiotics and pain medication versus overnight observation stay given remote location. Patient feels confident about going home and prefers this option. Given Augmentin and oxycodone prepack from the ER and prescription sent to [facility]. Patient states she knows the pharmacist and can get her medications filled tomorrow if needed. Patient given strict return precautions if pain gets worse, she is unable to tolerate fluids, if she develops a fever or chills. Patient and state understanding of the plan and are comfortable with discharge. Discharge Plan Departure Patient Disposition: Home Clinical Impression: Diverticulitis Instructions: DI for Diverticulitis Activity Restrictions/Additional Instructions: I have prescribed antibiotics for 10 days for diverticulitis as well as pain medication. These are to be taken after you complete taking the medication that was suspended from the emergency room. Please follow up with your primary care for reassessment 1 week. Please return to the emergency department if your pain becomes significantly worse, if you develop a fever, if you are unable to tolerate drinking water, have protracted nausea or unable to pass stool. Please advanced your diet as tolerated. Prescriptions: New amoxicillin-pot clavulanate 875-125 mg tablet 1 tab PO Q8H 9 Days Qty: 27 0RF oxycodone 5 mg tablet 5 mg PO Q6H PRN (Reason: pain) Qty: 14 0RF Discontinued amoxicillin-pot clavulanate [Augmentin] 500-125 mg tablet 1 tab PO TID Qty: 20 0RF oxycodone-acetaminophen [Percocet] 5-325 mg tablet 1 tab PO Q8H PRN (Reason: pain) Qty: 20 0RF No Action metoprolol succinate 50 MG tablet extended release 24 hr 50 mg PO QDAY Qty: 30 1RF acetaminophen 325 MG tablet 325 mg PO PRN PRN (Reason: Pain (Scale Score 1-3)) Qty: 0 anastrozole 1 mg tablet 1 mg PO DAILY Patient Comments: TAKE ONE(1) TABLET BY MOUTH ONCE DAILY prochlorperazine maleate 10 mg tablet 5 mg PO TID Patient Comments: TAKE ONE-HALF(1/2) TABLET BY MOUTH THREE(3) TIMES DAILY NEEDED FORNAUSEA pantoprazole 40 mg tablet,delayed release (DR/EC) 40 mg PO BEDTIME gabapentin 100 mg capsule 300 mg PO BEDTIME Patient Comments: TAKE THREE(3) CAPSULES BY MOUTH THREE(3) TIMES DAILY Xarelto 20 mg tablet 20 mg PO BEDTIME Patient Comments: TAKE ONE(1) TABLET BY MOUTH ONCE DAILY lisinopril 10 MG tablet 40 mg PO QDAY Referrals: Nevin Macedo ARNP [Primary Care Provider] - Stand Alone Forms: Patient Portal/API
[2024-03-27] MEDS: HYDROMORPHONE 0.5 MG INJ IV ×2 (16:52→17:24)
[2024-03-27] MEDS: SODIUM CHLORIDE 0.9% 1,000 ML 1000 ML IV (16:54)
[2024-03-27] MEDS: AMOXICILLIN/CLAV 875/125 MG 3 TAB PO (18:41)
[2024-03-27] MEDS: OXYCODONE/APAP 5/325 PREPACK 1 BOTTLE MISC (18:41)
== END 2024-03-27 18:53 | disposition home or self-care (01) ==
PROVIDERS: Emergency Medicine; Emergency Provider Physician Assistant; PCP Nurse Practitioner Family
DX: K57.92 Diverticulitis of intestine, part unspecified, without perforation or abscess without bleeding (principal); R79.89 Other specified abnormal findings of blood chemistry
CPT/HCPCS: 36415; 74177; 80053; 81003; 83690; 85025; 93005; 96361; 96374; 96376; 99284; J1170; Q9967

== ENCOUNTER 2024-06-23 15:18 | Observation (INO) | payer OTHER, MEDICAID, SELFPAY ==
[2023-10-21 16:45] VITALS: BMI 38.9
[2024-06-23] VITALS (12 sets, daily range): BP systolic 161–177; BP diastolic 65–103; PULSE 71–83; RESP 16–18; TEMP 36.7–37.6; O2SAT 91–98; BMI 37.2
--- NOTE | 2024-06-23 15:34 | EKG_ITS ---
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
[2024-06-23 16:07] LABS: Add Manual Diff / Slide Review NO; Basophils Absolute Auto 100 /uL (0-100); Basophils Percent Auto 0.7 % (0-2); Eosinophils Absolute Auto 200 /uL (0-450); Eosinophils Percent Auto 1.9 % (2-4); Hematocrit 40.6 % (36-46); Hemoglobin 13.8 g/dL (12.0-16.0); Lymphocytes Absolute Auto 2300 /uL (1100-4500); Mean Corpuscular HGB Conc 34.1 % (30-36); Mean Corpuscular Hemoglobin 33.4 PG (26-34); Monocytes Absolute Auto 900 /uL (0-900); Neutrophils Absolute Auto 6800 /uL (1500-7000); Neutrophils Percent Auto 66.4 % (50-75); Platelet Count 273 X10^3/uL (150-400); Red Blood Cell Count 4.14 X10^6/uL (4.0-5.2); Red Cell Distribution Width 12.1 % (11.6-14.8); White Blood Cell Count 10.2 X10^3/uL (4.5-11.0)
[2024-06-23] MEDS: SODIUM CHLORIDE 0.9% 1,000 ML 1000 ML IV (16:16)
[2024-06-23 16:18] LABS: Alanine Aminotransferase 80 IU/L (<35); Albumin 4.4 g/dL (3.5-5.0); Albumin Globulin Ratio 1.4 (1.0-2.8); Alkaline Phosphatase 92 U/L (38-126); Aspartate Aminotransferase 62 IU/L (14-36); BUN Creatinine Ratio 14.1 (6-22); Bilirubin Total 0.7 mg/dL (0.2-1.3); Blood Urea Nitrogen 10 mg/dL (7-17); Calcium 9.1 mg/dL (8.4-10.2); Carbon Dioxide 23 mmol/L (22-32); Chloride 104 mmol/L (98-107); Estimated Glomerular Filt Rate > 60 mL/min (>60); Globulin 3.1 g/dL (1.7-4.1); Glucose 100 mg/dL (70-100); HEMOLYSIS < 15 (0-50); Lipase 83 U/L (23-300); Potassium 3.9 mmol/L (3.4-5.1); Sodium 136 mmol/L (137-145); Total Protein 7.5 g/dL (6.3-8.2)
[2024-06-23] MEDS: HYDROMORPHONE 1 MG INJ IV (16:18)
[2024-06-23] MEDS: ONDANSETRON 4 MG/2 ML INJ IV (16:18)
[2024-06-23] MEDS: HYDROMORPHONE 0.5 MG INJ IV ×3 (16:51→20:27)
--- NOTE | 2024-06-23 17:05 | DI.CT.S_ITS ---
PROCEDURE: CT ABDOMEN PELVIS W CON INDICATIONS: acute abdominal pain TECHNIQUE: After the administration of intravenous contrast, axial sections acquired from the lung bases to the pubic symphysis. Coronal and sagittal reformats were performed. For radiation dose reduction, the following was used: automated exposure control, adjustment of mA and/or kV according to patient size. COMPARISON: [facility], CT, CT ABDOMEN PELVIS W CON, 03/27/2024, 17:29. FINDINGS: Image quality: Diagnostic. Lower Chest: Bilateral lung bases are clear. Heart size is enlarged, no pericardial effusion. ABDOMEN: Liver: No solid mass. Moderate to severe hepatic steatosis is seen. Gallbladder: Distended gallbladder. No radiopaque gallstones or wall thickening. Biliary ducts: No biliary dilation. Pancreas: No ductal dilation. Spleen: Size is within normal limits. Adrenal Glands: No adrenal nodules. Kidneys and Ureters: Bilateral nonobstructing renal calculi are seen measures 2-3 mm in size. No hydronephrosis or hydroureter. No solid mass. No complex renal cystic lesion which requires follow up. Stomach and Bowel: There is no bowel obstruction. No gastric or small bowel wall thickening. Appendix is visualized in right lower quadrant and is within normal limits. Extensive colonic diverticulosis is seen with wall thickening and mild adjacent pericolonic fat stranding involving proximal sigmoid colon in left lower quadrant suggestive of acute diverticulitis. No abscess collection. Peritoneum: No abnormal intraperitoneal fluid. No free air. Ventral Wall: No significant ventral hernia. Abdominal Nodes: No retroperitoneal or mesenteric adenopathy by size criteria. Vessels: Aorta and inferior vena cava are normal in size. PELVIS: Pelvic Organs: Unremarkable. Bladder: No bladder wall thickening, accounting for underdistention. Pelvic Nodes: No enlarged lymph nodes. Miscellaneous: No inguinal hernias are seen. Bones: No aggressive osseous abnormality. IMPRESSION: 1. Finding is suggestive of acute diverticulitis involving proximal sigmoid colon in left lower quadrant. No abscess collection. No signs of perforation. No free fluid or free air. 2. No bowel obstruction. No other area of abnormal bowel wall thickening. Normal appendix. 3. Tiny nonobstructing bilateral renal calculi without hydronephrosis. 4. Moderate to severe hepatic steatosis. Dictated by: Ata Horton M.D. on 06/23/2024 at 18:01 Approved by: Ata Horton M.D. on 06/23/2024 at 18:03
--- NOTE | 2024-06-23 17:45 | ED.GENADULT ---
HPI - General Adult <Radha Wallace MD - Last Filed: 06/28/24 07:12> General Chief complaint: Abdominal Pain Stated complaint: diverticulitis attack Time Seen by Provider: 06/23/24 15:47 Source: patient Mode of arrival: Family Vehicle History of Present Illness HPI narrative: 59-year-old woman with a long history of diverticulitis recurrent abdominal pain has seen multiple surgeons with recommendations for complete colectomies to no additional intervention and living with a recurrent episodes of diverticulitis. Over the last 24 hours she has had increasing abdominal pain nausea but no overt vomiting. She has not been passing stool today. Complains this is pain similar to her diverticulitis type pain and escalating. She describes no fevers. No chest pain, orthopnea, dyspnea, cough Related Data Home Medications Medication Instructions Recorded Confirmed anastrozole 1 mg tablet 1 mg PO DAILY 04/19/21 06/23/24 gabapentin 100 mg capsule 300 mg PO TID 04/19/21 06/23/24 pantoprazole 40 mg tablet,delayed 40 mg PO BEDTIME 04/19/21 06/23/24 release prochlorperazine maleate 10 mg 5 mg PO TID 04/19/21 06/23/24 tablet rivaroxaban 20 mg tablet (Xarelto) 20 mg PO BEDTIME 04/19/21 06/23/24 lisinopril 10 mg tablet 40 mg PO QDAY 10/21/23 06/23/24 ondansetron 4 mg disintegrating 4 mg PO Q8H PRN Sleep 06/23/24 06/23/24 tablet trazodone 50 mg tablet 150 mg PO BEDTIME 06/23/24 06/24/24 Previous Rx's Medication Instructions Recorded metoprolol succinate 50 mg 50 mg PO QDAY ##30 02/27/17 tablet,extended release 24 hr amoxicillin 875 mg-potassium 1 tab PO BID #28 tabs 06/25/24 clavulanate 125 mg tablet oxycodone 5 mg tablet 5 mg PO Q6H PRN pain #14 tabs 06/25/24 Allergies Allergy/AdvReac Type Severity Reaction Status Date / Time adhesive tape AdvReac Rash Verified 03/27/24 14:18 Review of Systems <Radha Wallace MD - Last Filed: 06/28/24 07:12> Review of Systems Narrative: Pertinent positive and negative findings as per HPI Patient History <Radha Wallace MD - Last Filed: 06/28/24 07:12> Medical History DVT (deep venous thrombosis) Diverticulitis Invasive carcinoma of breast (03/21/17) Nodule of left lobe of thyroid gland (03/05/17) Essential hypertension (03/05/17) Old myocardial infarction (12/01/15) Mixed hyperlipidemia (12/01/15) Surgical History Hx of section H/O bilateral mastectomy Family History Mother Alive and well Father Myocardial infarction Son Autism Son Asthma Daughter Asthma Social History household members: family Smoking Status: Never smoker alcohol intake: current substance use type: does not use additional social history: 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 [place] Smoking Status: Never smoker alcohol intake frequency: 0-2 drinks per day Substance Use Type: does not use Exam <Radha Wallace MD - Last Filed: 06/28/24 07:12> Initial Vital Signs Initial Vital Signs: Vital Signs Temperature 99.6 F 06/23/24 15:40 Pulse Rate 82 06/23/24 15:40 Respiratory Rate 16 06/23/24 15:40 Blood Pressure 177/99 H 06/23/24 15:40 Pulse Oximetry 95 06/23/24 15:40 Oxygen Delivery Method Room Air 06/23/24 15:40 General: Appears in significant pain, able to cooperate with the exam HEENT: Moist mucous membranes, normal sclera with reactive pupils, Respiratory: Lungs are clear to auscultation, no wheezing no rales no rhonchi. Full and symmetrical air movement Cardiac: Regular rate and rhythm no murmurs no bruits Abdomen: Distended, no bowel tones, tender to any palpation concern for developing acute surgical abdomen Skin: Pale but dry, no rashes Neurologic: Grossly neurologically intact with no obvious asymmetries or abnormalities Extremities: No trauma, well perfused Psych: Cooperative, appropriate insight and affect <Mera Valero MD - Last Filed: 06/24/24 01:20> Initial Vital Signs Initial Vital Signs: Vital Signs Temperature 99.6 F 06/23/24 15:40 Pulse Rate 82 06/23/24 15:40 Respiratory Rate 16 06/23/24 15:40 Blood Pressure 177/99 H 06/23/24 15:40 Pulse Oximetry 95 06/23/24 15:40 Oxygen Delivery Method Room Air 06/23/24 15:40 Course <Radha Wallace MD - Last Filed: 06/28/24 07:12> Orders Ordered: Discontinued Medications Acetaminophen (Acetaminophen 325 Mg Tablet) 650 mg PO Q6H PRN PRN Reason: Fever/Mild Pain (1-3) Hydrocodone Bitart/Acetaminophen (Hydrocodone/Acet 5/325 Tablet) 2 tab PO Q4H PRN PRN Reason: Pain, Severe (7-10) Anastrozole (Anastrozole 1 Mg Tablet) 1 mg PO DAILY [facility] Anastrozole (Anastrozole 1 Mg Tablet) 1 mg PO BEDTIME [facility] Last Admin: 06/24/24 21:17 Dose: 1 mg Documented By: Gabapentin (Gabapentin 100 Mg Capsule) 300 mg PO BEDTIME [facility] Last Admin: 06/23/24 22:04 Dose: 300 mg Documented By: CT Gabapentin (Gabapentin 300 Mg Capsule) 300 mg PO TID [facility] Last Admin: 06/25/24 09:21 Dose: 300 mg Documented By: Admin: 06/24/24 21:17 Dose: 300 mg Documented By: Admin: 06/24/24 15:13 Dose: 300 mg Documented By: BRETT Hydromorphone HCl (Hydromorphone 1 Mg Inj) 1 mg IV NOW ONE Stop: 06/23/24 16:09 Last Admin: 06/23/24 16:18 Dose: 1 mg Documented By: ALONDRA Hydromorphone HCl (Hydromorphone 0.5 Mg Inj) 0.5 mg IV Q15MIN PRN PRN Reason: Pain, Last Admin: 06/24/24 06:05 Dose: 0.5 mg Documented By: Admin: 06/24/24 03:21 Dose: 0.5 mg Documented By: Admin: 06/24/24 00:19 Dose: 0.5 mg Documented By: Admin: 06/23/24 20:27 Dose: 0.5 mg Documented By: Admin: 06/23/24 18:43 Dose: 0.5 mg Documented By: Admin: 06/23/24 16:51 Dose: 0.5 mg Documented By: ALONDRA Hydromorphone HCl (Hydromorphone 0.5 Mg Inj) 0.5 mg IV Q2HR PRN PRN Reason: Pain, Moderate (4-6) Last Admin: 06/25/24 03:40 Dose: 0.5 mg Documented By: Admin: 06/24/24 20:08 Dose: 0.5 mg Documented By: Admin: 06/24/24 15:13 Dose: 0.5 mg Documented By: Admin: 06/24/24 09:49 Dose: 0.5 mg Documented By: BRETT Sodium Chloride (Normal Saline 0.9%) 1,000 mls @ 1,000 mls/hr IV BOLUS ONE Stop: 06/23/24 17:07 Last Infusion: 06/23/24 17:19 Dose: Infused Documented By: Admin: 06/23/24 16:16 Dose: 1,000 mls/hr Documented By: ALONDRA Ciprofloxacin (Cipro) 400 mg in 200 mls @ 200 mls/hr IV NOW ONE Stop: 06/23/24 21:10 Last Admin: 06/23/24 22:06 Dose: Not Given Documented By: CT Metronidazole (Flagyl) 500 mg in 100 mls @ 100 mls/hr IV NOW ONE Stop: 06/23/24 21:10 Last Infusion: 06/23/24 21:25 Dose: Infused Documented By: Admin: 06/23/24 20:23 Dose: 100 mls/hr Documented By: Sodium Chloride (Normal Saline 0.9%) 1,000 mls @ 100 mls/hr IV CONT PHYLLIS Last Admin: 06/23/24 22:05 Dose: Not Given Documented By: CT Ciprofloxacin (Cipro) 400 mg in 200 mls @ 200 mls/hr IV Q12H [facility] Last Admin: 06/25/24 09:28 Dose: 200 mls/hr Documented By: Infusion: 06/24/24 21:05 Dose: Infused Documented By: Admin: 06/24/24 20:05 Dose: 200 mls/hr Documented By: Infusion: 06/24/24 10:20 Dose: Infused Documented By: Admin: 06/24/24 08:53 Dose: 200 mls/hr Documented By: Infusion: 06/23/24 23:05 Dose: Infused Documented By: Admin: 06/23/24 22:04 Dose: 200 mls/hr Documented By: CT Metronidazole (Flagyl) 500 mg in 100 mls @ 100 mls/hr IV Q6H [facility] Last Admin: 06/25/24 10:39 Dose: 100 mls/hr Documented By: YAKaren Infusion: 06/25/24 09:28 Dose: Infused Documented By: Admin: 06/25/24 03:39 Dose: 100 mls/hr Documented By: Infusion: 06/24/24 22:17 Dose: Infused Documented By: Admin: 06/24/24 21:17 Dose: 100 mls/hr Documented By: Infusion: 06/24/24 16:36 Dose: Infused Documented By: Admin: 06/24/24 15:36 Dose: 100 mls/hr Documented By: Infusion: 06/24/24 11:22 Dose: Infused Documented By: Admin: 06/24/24 10:22 Dose: 100 mls/hr Documented By: Infusion: 06/24/24 04:28 Dose: Infused Documented By: Admin: 06/24/24 03:15 Dose: 100 mls/hr Documented By: Admin: 06/23/24 21:55 Dose: Not Given Documented By: CT Sodium Chloride (Normal Saline 0.9%) 1,000 mls @ 100 mls/hr IV CONT PHYLLIS Last Admin: 06/25/24 00:41 Dose: 100 mls/hr Documented By: Infusion: 06/24/24 20:22 Dose: Infused Documented By: Admin: 06/24/24 10:22 Dose: 100 mls/hr Documented By: Infusion: 06/24/24 10:00 Dose: Infused Documented By: Admin: 06/24/24 00:00 Dose: 100 mls/hr Documented By: CT Ibuprofen (Ibuprofen 400 Mg Tablet) 400 mg PO Q8HR PRN PRN Reason: Pain, Mild (1-3) Last Admin: 06/25/24 09:21 Dose: 400 mg Documented By: Admin: 06/24/24 15:37 Dose: 400 mg Documented By: BRETT Lisinopril (Lisinopril 10 Mg Tablet) 40 mg PO DAILY [facility] Lisinopril (Lisinopril 10 Mg Tablet) 40 mg PO BEDTIME [facility] Last Admin: 06/24/24 21:18 Dose: 40 mg Documented By: SR Lisinopril (Lisinopril 20 Mg Tablet) 40 mg PO NOW ONE Stop: 06/24/24 01:17 Last Admin: 06/24/24 01:23 Dose: 40 mg Documented By: KAILA Metoprolol Succinate (Metoprolol Er 50 Mg Tablet) 50 mg PO DAILY [facility] Metoprolol Succinate (Metoprolol Er 50 Mg Tablet) 50 mg PO BEDTIME [facility] Metoprolol Succinate (Metoprolol Er 50 Mg Tablet) 50 mg PO BEDTIME [facility] Metoprolol Succinate (Metoprolol Er 50 Mg Tablet) 50 mg PO BEDTIME [facility] Last Admin: 06/24/24 21:18 Dose: 50 mg Documented By: Admin: 06/24/24 01:24 Dose: 50 mg Documented By: KAILA Morphine Sulfate (Morphine 4 Mg/Ml Inj) 3 mg IV Q2HR [facility] Last Admin: 06/23/24 22:07 Dose: Not Given Documented By: CT Morphine Sulfate (Morphine 4 Mg/Ml Inj) 3 mg IV Q2HR PRN PRN Reason: Pain, Severe (7-10) Naloxone HCl (Naloxone 0.4 Mg/Ml Vial) 0.2 mg IV Q2MIN PRN PRN Reason: Opiate Reversal Non-Formulary Medication (Prochlorperazine Maleate) 5 mg PO TID [facility] Last Admin: 06/25/24 09:28 Dose: Not Given Documented By: Admin: 06/24/24 21:19 Dose: Not Given Documented By: Admin: 06/24/24 16:40 Dose: Not Given Documented By: Admin: 06/24/24 10:22 Dose: Not Given Documented By: BRETT Ondansetron HCl (Ondansetron 4 Mg/2 Ml Inj) 4 mg IV NOW ONE Stop: 06/23/24 16:09 Last Admin: 06/23/24 16:18 Dose: 4 mg Documented By: ALONDRA Ondansetron HCl (Ondansetron 4 Mg Odt) 4 mg PO Q8H PRN PRN Reason: Nausea And Vomiting Last Admin: 06/24/24 15:13 Dose: 4 mg Documented By: BRETT Oxycodone HCl (Oxycodone 5 Mg/5 Ml Oral Solution) 5 mg PO Q4HR PRN PRN Reason: Pain, Moderate (4-6) Oxycodone HCl (Oxycodone Ir 5 Mg Tablet) 5 mg PO Q3HR PRN PRN Reason: Pain, Moderate (4-6) Oxycodone HCl (Oxycodone Ir 10 Mg Tablet) 10 mg PO Q3HR PRN PRN Reason: Pain, Severe (7-10) Last Admin: 06/25/24 09:21 Dose: 10 mg Documented By: Admin: 06/24/24 21:24 Dose: 10 mg Documented By: Admin: 06/24/24 17:13 Dose: 10 mg Documented By: Admin: 06/24/24 12:26 Dose: 10 mg Documented By: Admin: 06/24/24 08:53 Dose: 10 mg Documented By: Admin: 06/24/24 06:04 Dose: 10 mg Documented By: Admin: 06/24/24 01:06 Dose: 10 mg Documented By: KAILA Pantoprazole Sodium (Pantoprazole Dr 40 Mg Tablet) 40 mg PO BEDTIME [facility] Last Admin: 06/24/24 21:18 Dose: 40 mg Documented By: Admin: 06/23/24 22:04 Dose: 40 mg Documented By: FESTUS Prochlorperazine (Prochlorperazine 10 Mg/2 Ml Vial) 5 mg IV Q6HR PRN PRN Reason: Nausea Last Admin: 06/25/24 09:17 Dose: 5 mg Documented By: Admin: 06/24/24 16:31 Dose: 5 mg Documented By: BRETT Rivaroxaban (Rivaroxaban 10 Mg Tablet) 20 mg PO BEDTIME [facility] Last Admin: 06/24/24 21:17 Dose: 20 mg Documented By: SR Trazodone HCl (Trazodone 50 Mg Tablet) 100 mg PO BEDTIME [facility] Last Admin: 06/24/24 21:17 Dose: 100 mg Documented By: Admin: 06/24/24 01:09 Dose: 100 mg Documented By: KAILA Vital Signs Vital signs: Vital Signs - 8 hr 06/23/24 17:33 06/23/24 18:00 06/23/24 18:30 Pulse Rate 80 76 78 Pulse Oximetry 98 91 97 06/23/24 19:00 06/23/24 19:30 06/23/24 20:00 Pulse Rate 78 80 75 Pulse Oximetry 95 94 94 <Mera Valero MD - Last Filed: 06/24/24 01:20> Orders Ordered: Discontinued Medications Acetaminophen (Acetaminophen 325 Mg Tablet) 650 mg PO Q6H PRN PRN Reason: Fever/Mild Pain (1-3) Hydrocodone Bitart/Acetaminophen (Hydrocodone/Acet 5/325 Tablet) 2 tab PO Q4H PRN PRN Reason: Pain, Severe (7-10) Anastrozole (Anastrozole 1 Mg Tablet) 1 mg PO DAILY [facility] Anastrozole (Anastrozole 1 Mg Tablet) 1 mg PO BEDTIME [facility] Last Admin: 06/24/24 21:17 Dose: 1 mg Documented By: SR Gabapentin (Gabapentin 100 Mg Capsule) 300 mg PO BEDTIME [facility] Last Admin: 06/23/24 22:04 Dose: 300 mg Documented By: CT Gabapentin (Gabapentin 300 Mg Capsule) 300 mg PO TID [facility] Last Admin: 06/25/24 09:21 Dose: 300 mg Documented By: Admin: 06/24/24 21:17 Dose: 300 mg Documented By: Admin: 06/24/24 15:13 Dose: 300 mg Documented By: BRETT Hydromorphone HCl (Hydromorphone 1 Mg Inj) 1 mg IV NOW ONE Stop: 06/23/24 16:09 Last Admin: 06/23/24 16:18 Dose: 1 mg Documented By: ALONDRA Hydromorphone HCl (Hydromorphone 0.5 Mg Inj) 0.5 mg IV Q15MIN PRN PRN Reason: Pain, Last Admin: 06/24/24 06:05 Dose: 0.5 mg Documented By: Admin: 06/24/24 03:21 Dose: 0.5 mg Documented By: Admin: 06/24/24 00:19 Dose: 0.5 mg Documented By: Admin: 06/23/24 20:27 Dose: 0.5 mg Documented By: Admin: 06/23/24 18:43 Dose: 0.5 mg Documented By: Admin: 06/23/24 16:51 Dose: 0.5 mg Documented By: ALONDRA Hydromorphone HCl (Hydromorphone 0.5 Mg Inj) 0.5 mg IV Q2HR PRN PRN Reason: Pain, Moderate (4-6) Last Admin: 06/25/24 03:40 Dose: 0.5 mg Documented By: Admin: 06/24/24 20:08 Dose: 0.5 mg Documented By: Admin: 06/24/24 15:13 Dose: 0.5 mg Documented By: Admin: 06/24/24 09:49 Dose: 0.5 mg Documented By: BRETT Sodium Chloride (Normal Saline 0.9%) 1,000 mls @ 1,000 mls/hr IV BOLUS ONE Stop: 06/23/24 17:07 Last Infusion: 06/23/24 17:19 Dose: Infused Documented By: Admin: 06/23/24 16:16 Dose: 1,000 mls/hr Documented By: ALONDRA Ciprofloxacin (Cipro) 400 mg in 200 mls @ 200 mls/hr IV NOW ONE Stop: 06/23/24 21:10 Last Admin: 06/23/24 22:06 Dose: Not Given Documented By: CT Metronidazole (Flagyl) 500 mg in 100 mls @ 100 mls/hr IV NOW ONE Stop: 06/23/24 21:10 Last Infusion: 06/23/24 21:25 Dose: Infused Documented By: Admin: 06/23/24 20:23 Dose: 100 mls/hr Documented By: Sodium Chloride (Normal Saline 0.9%) 1,000 mls @ 100 mls/hr IV CONT PHYLLIS Last Admin: 06/23/24 22:05 Dose: Not Given Documented By: FESTUS Ciprofloxacin (Cipro) 400 mg in 200 mls @ 200 mls/hr IV Q12H [facility] Last Admin: 06/25/24 09:28 Dose: 200 mls/hr Documented By: Infusion: 06/24/24 21:05 Dose: Infused Documented By: Admin: 06/24/24 20:05 Dose: 200 mls/hr Documented By: Infusion: 06/24/24 10:20 Dose: Infused Documented By: Admin: 06/24/24 08:53 Dose: 200 mls/hr Documented By: Infusion: 06/23/24 23:05 Dose: Infused Documented By: Admin: 06/23/24 22:04 Dose: 200 mls/hr Documented By: CT Metronidazole (Flagyl) 500 mg in 100 mls @ 100 mls/hr IV Q6H [facility] Last Admin: 06/25/24 10:39 Dose: 100 mls/hr Documented By: Infusion: 06/25/24 09:28 Dose: Infused Documented By: YAKaren Admin: 06/25/24 03:39 Dose: 100 mls/hr Documented By: Infusion: 06/24/24 22:17 Dose: Infused Documented By: Admin: 06/24/24 21:17 Dose: 100 mls/hr Documented By: Infusion: 06/24/24 16:36 Dose: Infused Documented By: Admin: 06/24/24 15:36 Dose: 100 mls/hr Documented By: Infusion: 06/24/24 11:22 Dose: Infused Documented By: Admin: 06/24/24 10:22 Dose: 100 mls/hr Documented By: Infusion: 06/24/24 04:28 Dose: Infused Documented By: AGAc Admin: 06/24/24 03:15 Dose: 100 mls/hr Documented By: Admin: 06/23/24 21:55 Dose: Not Given Documented By: CT Sodium Chloride (Normal Saline 0.9%) 1,000 mls @ 100 mls/hr IV CONT [facility] Last Admin: 06/25/24 00:41 Dose: 100 mls/hr Documented By: Infusion: 06/24/24 20:22 Dose: Infused Documented By: Admin: 06/24/24 10:22 Dose: 100 mls/hr Documented By: Infusion: 06/24/24 10:00 Dose: Infused Documented By: Admin: 06/24/24 00:00 Dose: 100 mls/hr Documented By: CT Ibuprofen (Ibuprofen 400 Mg Tablet) 400 mg PO Q8HR PRN PRN Reason: Pain, Mild (1-3) Last Admin: 06/25/24 09:21 Dose: 400 mg Documented By: Admin: 06/24/24 15:37 Dose: 400 mg Documented By: BRETT Lisinopril (Lisinopril 10 Mg Tablet) 40 mg PO DAILY [facility] Lisinopril (Lisinopril 10 Mg Tablet) 40 mg PO BEDTIME [facility] Last Admin: 06/24/24 21:18 Dose: 40 mg Documented By: Lisinopril (Lisinopril 20 Mg Tablet) 40 mg PO NOW ONE Stop: 06/24/24 01:17 Last Admin: 06/24/24 01:23 Dose: 40 mg Documented By: KAILA Metoprolol Succinate (Metoprolol Er 50 Mg Tablet) 50 mg PO DAILY [facility] Metoprolol Succinate (Metoprolol Er 50 Mg Tablet) 50 mg PO BEDTIME [facility] Metoprolol Succinate (Metoprolol Er 50 Mg Tablet) 50 mg PO BEDTIME [facility] Metoprolol Succinate (Metoprolol Er 50 Mg Tablet) 50 mg PO BEDTIME [facility] Last Admin: 06/24/24 21:18 Dose: 50 mg Documented By: Admin: 06/24/24 01:24 Dose: 50 mg Documented By: KAILA Morphine Sulfate (Morphine 4 Mg/Ml Inj) 3 mg IV Q2HR [facility] Last Admin: 06/23/24 22:07 Dose: Not Given Documented By: FESTUS Morphine Sulfate (Morphine 4 Mg/Ml Inj) 3 mg IV Q2HR PRN PRN Reason: Pain, Severe (7-10) Naloxone HCl (Naloxone 0.4 Mg/Ml Vial) 0.2 mg IV Q2MIN PRN PRN Reason: Opiate Reversal Non-Formulary Medication (Prochlorperazine Maleate) 5 mg PO TID [facility] Last Admin: 06/25/24 09:28 Dose: Not Given Documented By: Admin: 06/24/24 21:19 Dose: Not Given Documented By: Admin: 06/24/24 16:40 Dose: Not Given Documented By: Admin: 06/24/24 10:22 Dose: Not Given Documented By: BRETT Ondansetron HCl (Ondansetron 4 Mg/2 Ml Inj) 4 mg IV NOW ONE Stop: 06/23/24 16:09 Last Admin: 06/23/24 16:18 Dose: 4 mg Documented By: ALONDRA Ondansetron HCl (Ondansetron 4 Mg Odt) 4 mg PO Q8H PRN PRN Reason: Nausea And Vomiting Last Admin: 06/24/24 15:13 Dose: 4 mg Documented By: BRETT Oxycodone HCl (Oxycodone 5 Mg/5 Ml Oral Solution) 5 mg PO Q4HR PRN PRN Reason: Pain, Moderate (4-6) Oxycodone HCl (Oxycodone Ir 5 Mg Tablet) 5 mg PO Q3HR PRN PRN Reason: Pain, Moderate (4-6) Oxycodone HCl (Oxycodone Ir 10 Mg Tablet) 10 mg PO Q3HR PRN PRN Reason: Pain, Severe (7-10) Last Admin: 06/25/24 09:21 Dose: 10 mg Documented By: Admin: 06/24/24 21:24 Dose: 10 mg Documented By: Admin: 06/24/24 17:13 Dose: 10 mg Documented By: Admin: 06/24/24 12:26 Dose: 10 mg Documented By: Admin: 06/24/24 08:53 Dose: 10 mg Documented By: Admin: 06/24/24 06:04 Dose: 10 mg Documented By: Admin: 06/24/24 01:06 Dose: 10 mg Documented By: KAILA Pantoprazole Sodium (Pantoprazole Dr 40 Mg Tablet) 40 mg PO BEDTIME [facility] Last Admin: 06/24/24 21:18 Dose: 40 mg Documented By: Admin: 06/23/24 22:04 Dose: 40 mg Documented By: FESTUS Prochlorperazine (Prochlorperazine 10 Mg/2 Ml Vial) 5 mg IV Q6HR PRN PRN Reason: Nausea Last Admin: 06/25/24 09:17 Dose: 5 mg Documented By: Admin: 06/24/24 16:31 Dose: 5 mg Documented By: BRETT Rivaroxaban (Rivaroxaban 10 Mg Tablet) 20 mg PO BEDTIME [facility] Last Admin: 06/24/24 21:17 Dose: 20 mg Documented By: Trazodone HCl (Trazodone 50 Mg Tablet) 100 mg PO BEDTIME [facility] Last Admin: 06/24/24 21:17 Dose: 100 mg Documented By: Admin: 06/24/24 01:09 Dose: 100 mg Documented By: KAILA Vital Signs Vital signs: Vital Signs - 8 hr 06/23/24 17:33 06/23/24 18:00 06/23/24 18:30 Pulse Rate 80 76 78 Pulse Oximetry 98 91 97 06/23/24 19:00 06/23/24 19:30 06/23/24 20:00 Pulse Rate 78 80 75 Pulse Oximetry 95 94 94 Medical Decision Making <Radha Wallace MD - Last Filed: 06/28/24 07:12> Lab Data 06/23/24 15:52 06/23/24 15:52 Labs: Lab Results 06/23/24 06/23/24 06/23/24 Range/Units 04:18 15:52 15:57 WBC 8.5 10.2 (4.5-11.0) X10^3/uL RBC 3.90 L 4.14 (4.0-5.2) X10^6/uL Hgb 13.1 13.8 (12.0-16.0) g/dL Hct 38.1 40.6 (36-46) % MCV 97.7 98.0 (80-100) fL MCH 33.6 33.4 (26-34) PG MCHC 34.4 34.1 (30-36) % RDW 12.0 12.1 (11.6-14.8) % Plt Count 251 273 (150-400) X10^3/uL Neut % (Auto) 63.3 66.4 (50-75) % Lymph % (Auto) 23.9 L 22.0 L (25-40) % [place] % (Auto) 9.8 9.0 (3-14) % Eos % (Auto) 2.2 1.9 L (2-4) % Baso % (Auto) 0.8 0.7 (0-2) % Neut # (Auto) 5400 6800 (0922-0281) /uL Lymph # (Auto) 2000 2300 (6681-9392) /uL [place] # (Auto) 800 900 (0-900) /uL Eos # (Auto) 200 200 (0-450) /uL Baso # (Auto) 100 100 (0-100) /uL Sodium 138 136 L (137-145) mmol/L Potassium 3.8 3.9 (3.4-5.1) mmol/L Chloride 106 104 (98-107) mmol/L Carbon Dioxide 24 23 (22-32) mmol/L BUN 6 L 10 (7-17) mg/dL Creatinine 0.63 0.71 (0.52-1.04) mg/dL Estimated GFR > 60 > 60 (>60) mL/min BUN/Creatinine Ratio 9.5 14.1 (6-22) Glucose 106 H 100 (70-100) mg/dL Lactate 1.0 (0.7-2.1) mmol/L Calcium 8.7 9.1 (8.4-10.2) mg/dL Total Bilirubin 0.9 0.7 (0.2-1.3) mg/dL AST 43 H 62 H (14-36) IU/L ALT 65 H 80 H (<35) IU/L Alkaline Phosphatase 76 92 (38-126) U/L Total Protein 6.6 7.5 (6.3-8.2) g/dL Albumin 4.0 4.4 (3.5-5.0) g/dL Globulin 2.6 3.1 (1.7-4.1) g/dL Albumin/Globulin Ratio 1.5 1.4 (1.0-2.8) Lipase 83 (23-300) U/L Urine Dip Bedside Urine Glucose Negative Bedside Urine Bilirubin - Negative Bedside Urine Ketone - Negative Urine Specific [place] 1.010 Bedside Urine Occult Blood - Negative Bedside Urine pH 6.0 Bedside Urine Protein - Negative Bedside Urine Urobilinogen - Negative Bedside Urine Nitrite - Negative Bedside Urine Leukocytes - Negative Esterase Point of care testing: Urine Dip Bedside Urine Glucose Negative Bedside Urine Bilirubin - Negative Bedside Urine Ketone - Negative Urine Specific [place] 1.010 Bedside Urine Occult Blood - Negative Bedside Urine pH 6.0 Bedside Urine Protein - Negative Bedside Urine Urobilinogen - Negative Bedside Urine Nitrite - Negative Bedside Urine Leukocytes - Negative Esterase MDM Narrative Medical decision making narrative: CC: Severe abdominal pain Complicating co-morbidities: History of recurrent diverticulitis with significant complications including strictures and conflicting surgical opinions about colectomy, patient is on Xarelto and currently treatment for breast cancer with anastrozole Data collected from: patient Medical records reviewed: Discharge summary from October 25, 2023 for diverticulitis reviewed. Differential considered: Bowel obstruction, bowel perforation, obstructive mass, acute diverticulitis Exam documented above, pertinent findings include: Patient is in significant pain, abdominal exam is concerning for pain with guarding and rebound Lab Test results independently reviewed as above. Pertinent findings: CBC shows no leukocytosis and no anemia Chemistries are reassuring with minimally elevated AST and ALT. Normal renal function and electrolytes Lactic level is appropriate at 1 Lipase is unremarkable Independently reviewed EKG: EKG shows sinus rhythm at a rate of 82 with no acute ischemic changes Imaging studies independently reviewed: Consultations: Treatments: Fluids, Dilaudid, Zofran Re-evaluations: Discussion: <Mera Valero MD - Last Filed: 06/24/24 01:20> Lab Data Labs: Lab Results 06/23/24 06/23/24 06/23/24 Range/Units 04:18 15:52 15:57 WBC 8.5 10.2 (4.5-11.0) X10^3/uL RBC 3.90 L 4.14 (4.0-5.2) X10^6/uL Hgb 13.1 13.8 (12.0-16.0) g/dL Hct 38.1 40.6 (36-46) % MCV 97.7 98.0 (80-100) fL MCH 33.6 33.4 (26-34) PG MCHC 34.4 34.1 (30-36) % RDW 12.0 12.1 (11.6-14.8) % Plt Count 251 273 (150-400) X10^3/uL Neut % (Auto) 63.3 66.4 (50-75) % Lymph % (Auto) 23.9 L 22.0 L (25-40) % [place] % (Auto) 9.8 9.0 (3-14) % Eos % (Auto) 2.2 1.9 L (2-4) % Baso % (Auto) 0.8 0.7 (0-2) % Neut # (Auto) 5400 6800 (1743-9551) /uL Lymph # (Auto) 2000 2300 (3393-7746) /uL [place] # (Auto) 800 900 (0-900) /uL Eos # (Auto) 200 200 (0-450) /uL Baso # (Auto) 100 100 (0-100) /uL Sodium 138 136 L (137-145) mmol/L Potassium 3.8 3.9 (3.4-5.1) mmol/L Chloride 106 104 (98-107) mmol/L Carbon Dioxide 24 23 (22-32) mmol/L BUN 6 L 10 (7-17) mg/dL Creatinine 0.63 0.71 (0.52-1.04) mg/dL Estimated GFR > 60 > 60 (>60) mL/min BUN/Creatinine Ratio 9.5 14.1 (6-22) Glucose 106 H 100 (70-100) mg/dL Lactate 1.0 (0.7-2.1) mmol/L Calcium 8.7 9.1 (8.4-10.2) mg/dL Total Bilirubin 0.9 0.7 (0.2-1.3) mg/dL AST 43 H 62 H (14-36) IU/L ALT 65 H 80 H (<35) IU/L Alkaline Phosphatase 76 92 (38-126) U/L Total Protein 6.6 7.5 (6.3-8.2) g/dL Albumin 4.0 4.4 (3.5-5.0) g/dL Globulin 2.6 3.1 (1.7-4.1) g/dL Albumin/Globulin Ratio 1.5 1.4 (1.0-2.8) Lipase 83 (23-300) U/L Urine Dip Bedside Urine Glucose Negative Bedside Urine Bilirubin - Negative Bedside Urine Ketone - Negative Urine Specific [place] 1.010 Bedside Urine Occult Blood - Negative Bedside Urine pH 6.0 Bedside Urine Protein - Negative Bedside Urine Urobilinogen - Negative Bedside Urine Nitrite - Negative Bedside Urine Leukocytes - Negative Esterase Point of care testing: Urine Dip Bedside Urine Glucose Negative Bedside Urine Bilirubin - Negative Bedside Urine Ketone - Negative Urine Specific [place] 1.010 Bedside Urine Occult Blood - Negative Bedside Urine pH 6.0 Bedside Urine Protein - Negative Bedside Urine Urobilinogen - Negative Bedside Urine Nitrite - Negative Bedside Urine Leukocytes - Negative Esterase Imaging Data CT scan - abdomen/pelvis: Radiologist's Impression: PROCEDURE: CT ABDOMEN PELVIS W CON INDICATIONS: acute abdominal pain TECHNIQUE: After the administration of intravenous contrast, axial sections acquired from the lung bases to the pubic symphysis. Coronal and sagittal reformats were performed. For radiation dose reduction, the following was used: automated exposure control, adjustment of mA and/or kV according to patient size. COMPARISON: [facility], CT, CT ABDOMEN PELVIS W CON, 03/27/2024, 17:29. FINDINGS: Image quality: Diagnostic. Lower Chest: Bilateral lung bases are clear. Heart size is enlarged, no pericardial effusion. ABDOMEN: Liver: No solid mass. Moderate to severe hepatic steatosis is seen. Gallbladder: Distended gallbladder. No radiopaque gallstones or wall thickening. Biliary ducts: No biliary dilation. Pancreas: No ductal dilation. Spleen: Size is within normal limits. Adrenal Glands: No adrenal nodules. Kidneys and Ureters: Bilateral nonobstructing renal calculi are seen measures 2-3 mm in size. No hydronephrosis or hydroureter. No solid mass. No complex renal cystic lesion which requires follow up. Stomach and Bowel: There is no bowel obstruction. No gastric or small bowel wall thickening. Appendix is visualized in right lower quadrant and is within normal limits. Extensive colonic diverticulosis is seen with wall thickening and mild adjacent pericolonic fat stranding involving proximal sigmoid colon in left lower quadrant suggestive of acute diverticulitis. No abscess collection. Peritoneum: No abnormal intraperitoneal fluid. No free air. Ventral Wall: No significant ventral hernia. Abdominal Nodes: No retroperitoneal or mesenteric adenopathy by size criteria. Vessels: Aorta and inferior vena cava are normal in size. PELVIS: Pelvic Organs: Unremarkable. Bladder: No bladder wall thickening, accounting for underdistention. Pelvic Nodes: No enlarged lymph nodes. Miscellaneous: No inguinal hernias are seen. Bones: No aggressive osseous abnormality. IMPRESSION: 1. Finding is suggestive of acute diverticulitis involving proximal sigmoid colon in left lower quadrant. No abscess collection. No signs of perforation. No free fluid or free air. 2. No bowel obstruction. No other area of abnormal bowel wall thickening. Normal appendix. 3. Tiny nonobstructing bilateral renal calculi without hydronephrosis. 4. Moderate to severe hepatic steatosis. Dictated by: Ata Horton M.D. on 06/23/2024 at 18:01 Approved by: Ata Horton M.D. on 06/23/2024 at 18:03 [facility] Narrative Medical decision making narrative: CC: Severe abdominal pain Complicating co-morbidities: History of recurrent diverticulitis with significant complications including strictures and conflicting surgical opinions about colectomy, patient is on Xarelto and currently treatment for breast cancer with anastrozole Data collected from: patient Medical records reviewed: Discharge summary from October 25, 2023 for diverticulitis reviewed. Differential considered: Bowel obstruction, bowel perforation, obstructive mass, acute diverticulitis Exam documented above, pertinent findings include: Patient is in significant pain, abdominal exam is concerning for pain with guarding and rebound Lab Test results independently reviewed as above. Pertinent findings: CBC shows no leukocytosis and no anemia Chemistries are reassuring with minimally elevated AST and ALT. Normal renal function and electrolytes Lactic level is appropriate at 1 Lipase is unremarkable Independently reviewed EKG: EKG shows sinus rhythm at a rate of 82 with no acute ischemic changes Imaging studies independently reviewed: Consultations: Treatments: Fluids, Dilaudid, Zofran Re-evaluations: Discussion: Dr. Valero -care of patient is signed out to me by daytime physician. Independent review of patient and chart performed by myself. On reassessment patient resting comfortably. She states that she has been compliant with her medications as prescribed by her doctor but her pain is not controlled at home. CT reviewed, no abscess or perforation. Patient started on IV Cipro and Flagyl, admitted for further treatment. Discharge Plan Departure Patient Disposition: Admitted as Observation Clinical Impression: Diverticulitis Admit Date/Time: 06/23/24 20:22 Admit Provider: Alexander Preston
[2024-06-23] MEDS: metroNIDAZOLE 500 MG/100 ML PIGGYBACK 100 MG IV (20:23)
[2024-06-23] MEDS: GABAPENTIN 100 MG CAPSULE 300 MG PO (22:04)
[2024-06-23] MEDS: PANTOPRAZOLE DR 40 MG TABLET PO (22:04)
[2024-06-23] MEDS: CIPROFLOXACIN 400 MG/200 ML PIGGYBACK 200 MG IV (22:04)
[2024-06-24] VITALS (8 sets, daily range): BP systolic 126–177; BP diastolic 76–103; PULSE 72–81; RESP 16–18; TEMP 36.2–37; O2SAT 91–99
[2024-06-24] MEDS: HYDROMORPHONE 0.5 MG INJ IV ×6 (00:19→20:08)
[2024-06-24] MEDS: OXYCODONE IR 10 MG TABLET PO ×6 (01:06→21:24)
[2024-06-24] MEDS: TRAZODONE 50 MG TABLET 100 MG PO ×2 (01:09→21:17)
[2024-06-24] MEDS: lisinopriL 20 MG TABLET 40 MG PO (01:23)
[2024-06-24] MEDS: METOPROLOL ER 50 MG TABLET PO ×2 (01:24→21:18)
[2024-06-24] MEDS: metroNIDAZOLE 500 MG/100 ML PIGGYBACK 100 MG IV ×4 (03:15→21:17)
[2024-06-24 04:29] LABS: Add Manual Diff / Slide Review NO; Basophils Absolute Auto 100 /uL (0-100); Basophils Percent Auto 0.8 % (0-2); Eosinophils Absolute Auto 200 /uL (0-450); Eosinophils Percent Auto 2.2 % (2-4); Hematocrit 38.1 % (36-46); Hemoglobin 13.1 g/dL (12.0-16.0); Lymphocytes Absolute Auto 2000 /uL (1100-4500); Lymphocytes Percent Auto 23.9 % (25-40); Mean Corpuscular HGB Conc 34.4 % (30-36); Mean Corpuscular Hemoglobin 33.6 PG (26-34); Mean Corpuscular Volume 97.7 fL (80-100); Monocytes Absolute Auto 800 /uL (0-900); Monocytes Percent Auto 9.8 % (3-14); Neutrophils Absolute Auto 5400 /uL (1500-7000); Neutrophils Percent Auto 63.3 % (50-75); Platelet Count 251 X10^3/uL (150-400); White Blood Cell Count 8.5 X10^3/uL (4.5-11.0)
[2024-06-24 04:49] LABS: Alanine Aminotransferase 65 IU/L (<35); Albumin Globulin Ratio 1.5 (1.0-2.8); Alkaline Phosphatase 76 U/L (38-126); Aspartate Aminotransferase 43 IU/L (14-36); BUN Creatinine Ratio 9.5 (6-22); Bilirubin Total 0.9 mg/dL (0.2-1.3); Blood Urea Nitrogen 6 mg/dL (7-17); Calcium 8.7 mg/dL (8.4-10.2); Carbon Dioxide 24 mmol/L (22-32); Chloride 106 mmol/L (98-107); Estimated Glomerular Filt Rate > 60 mL/min (>60); Globulin 2.6 g/dL (1.7-4.1); Glucose 106 mg/dL (70-100); HEMOLYSIS < 15 (0-50); Potassium 3.8 mmol/L (3.4-5.1); Sodium 138 mmol/L (137-145); Total Protein 6.6 g/dL (6.3-8.2)
--- NOTE | 2024-06-24 05:51 | P.HP_ITS ---
History of Present Illness History of Present Illness Chief complaint: diverticulitis attack Narrative: 59-year-old female with past medical history of DVT on Xarelto, recurrent diverticulitis, breast cancer, hypertension and coronary artery disease presents with complaint of abdominal pain. Of note the patient was recently treated as outpatient for diverticulitiswith pain medication and oral antibiotic (prescribed empirically by her GI physician due to frequent recurrent diverticulitis). However for the patient report, despite taking her pain medication orally at home, the patient continue to have significant abdominal pain. The patient however denies any fever or chills. The patient admit to have some nausea but denies any vomiting, GI lead or diarrhea. In our emergency room, the patient with hemodynamically stable without sign of sepsis. Laboratory were benign except for only mild elevated ALT and AST. Due to ongoing pain the patient did have another CT scan which shows acute diverticulitis without signs of abscess or perforation. Our ER physician requested admission for IV antibiotic and pain control. 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 (03/05/17) Essential hypertension (03/05/17) Old myocardial infarction (12/01/15) Mixed hyperlipidemia (12/01/15) Surgical History Hx of section H/O bilateral mastectomy Family History Mother Alive and well Father Myocardial infarction Son Autism Son Asthma Daughter Asthma Social History household members: family Smoking Status: Never smoker alcohol intake: current substance use type: does not use additional 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[place] Meds Home Medications and Allergies Home Medications Medication Instructions Recorded Confirmed Type metoprolol succinate 50 mg 50 mg PO QDAY ##30 02/27/17 06/23/24 Rx tablet,extended release 24 hr anastrozole 1 mg tablet 1 mg PO DAILY 04/19/21 06/23/24 History gabapentin 100 mg capsule 300 mg PO TID 04/19/21 06/23/24 History pantoprazole 40 mg tablet,delayed 40 mg PO BEDTIME 04/19/21 06/23/24 History release prochlorperazine maleate 10 mg 5 mg PO TID 04/19/21 06/23/24 History tablet rivaroxaban 20 mg tablet (Xarelto) 20 mg PO BEDTIME 04/19/21 06/23/24 History lisinopril 10 mg tablet 40 mg PO QDAY 10/21/23 06/23/24 History oxycodone 5 mg tablet 5 mg PO Q6H PRN pain #14 tabs 03/27/24 06/23/24 Rx ondansetron 4 mg disintegrating 4 mg PO Q8H PRN Sleep 06/23/24 06/23/24 History tablet trazodone 50 mg tablet 150 mg PO BEDTIME 06/23/24 06/24/24 History Allergies Allergy/AdvReac Type Severity Reaction Status Date / Time adhesive tape AdvReac Rash Verified 03/27/24 14:18 Review of Systems Review of Systems Narrative: 12 points of ROS are negative except for what was mentioned per HPI Exam Vital Signs (past 8 hours): - 06/24/24 01:23 06/24/24 04:42 Temperature 97.1 F L Pulse Rate 80 79 Respiratory Rate 18 Blood Pressure 177/103 H 143/86 H Pulse Oximetry 91 Oxygen Flow Rate 0 Oxygen Delivery Method Room Air Oxygen Flow Rate 0 Narrative Exam Narrative: GENERAL: The patient is not in any acute distressed. Awake and alert. HEENT: Nonicteric sclerae, PERRLA, EOMI. Oropharynx clear. Moist mucous membranes. Conjunctivae appear well perfused. HEART: Regular rate and rhythm without murmurs. No lower extremities edema. LUNGS: Clear to auscultation bilaterally. No wheezing, crackles or rhonchi ABDOMEN: Soft, positive bowel sounds,tender in left abdomen without rebound. SKIN: No rash, no excessive bruising, petechiae, or purpura. NEUROLOGIC: AxO x 3. Cranial nerves II-XII intact without motor/sensory deficit. Objective Labs 06/23/24 15:52 06/23/24 15:52 Labs: Laboratory Results - last 24 hr 06/23/24 06/23/24 06/23/24 04:18 15:52 15:57 WBC 8.5 10.2 RBC 3.90 L 4.14 Hgb 13.1 13.8 Hct 38.1 40.6 MCV 97.7 98.0 MCH 33.6 33.4 MCHC 34.4 34.1 RDW 12.0 12.1 Plt Count 251 273 Neut % (Auto) 63.3 66.4 Lymph % (Auto) 23.9 L 22.0 L [place] % (Auto) 9.8 9.0 Eos % (Auto) 2.2 1.9 L Baso % (Auto) 0.8 0.7 Neut # (Auto) 5400 6800 Lymph # (Auto) 2000 2300 [place] # (Auto) 800 900 Eos # (Auto) 200 200 Baso # (Auto) 100 100 Sodium 138 136 L Potassium 3.8 3.9 Chloride 106 104 Carbon Dioxide 24 23 BUN 6 L 10 Creatinine 0.63 0.71 Estimated GFR > 60 > 60 BUN/Creatinine Ratio 9.5 14.1 Glucose 106 H 100 Lactate 1.0 Calcium 8.7 9.1 Total Bilirubin 0.9 0.7 AST 43 H 62 H ALT 65 H 80 H Alkaline Phosphatase 76 92 Total Protein 6.6 7.5 Albumin 4.0 4.4 Globulin 2.6 3.1 Albumin/Globulin Ratio 1.5 1.4 Lipase 83 Assessment & Plan Assessment & Plan narrative: Acute reccurent diverticulitis. Admit the patient to medical observation. Patient is unable to tolerate pain despite taking oral narcotics at home. Continue IV ciprofloxacin and flagyl. IV pain control. Clear liquid diet. IVF and monitor for sepsis . History DVT. Resume homes Xarelto Hypertension monitor blood pressure and resume home hypertensive medication accordingly DVT prophylaxis Xarelto Code status full code Disposition likely home in 1 to 2 days when pain is controlled Time-Based Coding :: [TOTAL MINUTES] spent with patient and on the chart (including review of chart, obtaining history, exam, reviewing outside data, placing orders, documenting exam and treatment plan, and counseling patient) on [DATE]. Quality VTE Deep Vein Thrombosis/Pulmonary Embolism Present on Admission: No
--- NOTE | 2024-06-24 07:53 | PM.PN.1 ---
Subjective Subjective Interval history: Summary: 59-year-old female with history of DVT on Xarelto who presents with recurrent diverticulitis. She started her oral antibiotics which she always has on hand from her GI doctor due to her frequent recurrent attacks. Unfortunately her symptoms progress. She saw a GI doctor [facility] who recommended against a total colectomy as she thought this a create a whole new set of problems that would arrival the current problems of her recurrent diverticulitis. S: She was significant left lower quadrant pain. No radiation. No nausea, or vomiting. No diarrhea. No fevers, or chills. Exam Vital Signs (past 8 hours): - 06/24/24 01:23 06/24/24 04:42 Temperature 97.1 F L Pulse Rate 80 79 Respiratory Rate 18 Blood Pressure 177/103 H 143/86 H Pulse Oximetry 91 Oxygen Flow Rate 0 Oxygen Delivery Method Room Air Oxygen Flow Rate 0 Narrative Exam Narrative: NAD, alert and oriented. Fluent speech. Lungs are clear, normal rate and effort. Heart is regular, no murmur gallop or rub. Abdomen is soft, non distended. LLQ pain. Extremities are free of edema. Objective Imaging CT scan - abdomen: Radiologist's impression: 1. Finding is suggestive of acute diverticulitis involving proximal sigmoid colon in left lower quadrant. No abscess collection. No signs of perforation. No free fluid or free air. 2. No bowel obstruction. No other area of abnormal bowel wall thickening. Normal appendix. 3. Tiny nonobstructing bilateral renal calculi without hydronephrosis. 4. Moderate to severe hepatic steatosis. Labs 06/23/24 15:52 06/23/24 15:52 Labs: Laboratory Results - last 24 hr 06/23/24 06/23/24 06/23/24 04:18 15:52 15:57 WBC 8.5 10.2 RBC 3.90 L 4.14 Hgb 13.1 13.8 Hct 38.1 40.6 MCV 97.7 98.0 MCH 33.6 33.4 MCHC 34.4 34.1 RDW 12.0 12.1 Plt Count 251 273 Neut % (Auto) 63.3 66.4 Lymph % (Auto) 23.9 L 22.0 L [place] % (Auto) 9.8 9.0 Eos % (Auto) 2.2 1.9 L Baso % (Auto) 0.8 0.7 Neut # (Auto) 5400 6800 Lymph # (Auto) 2000 2300 [place] # (Auto) 800 900 Eos # (Auto) 200 200 Baso # (Auto) 100 100 Sodium 138 136 L Potassium 3.8 3.9 Chloride 106 104 Carbon Dioxide 24 23 BUN 6 L 10 Creatinine 0.63 0.71 Estimated GFR > 60 > 60 BUN/Creatinine Ratio 9.5 14.1 Glucose 106 H 100 Lactate 1.0 Calcium 8.7 9.1 Total Bilirubin 0.9 0.7 AST 43 H 62 H ALT 65 H 80 H Alkaline Phosphatase 76 92 Total Protein 6.6 7.5 Albumin 4.0 4.4 Globulin 2.6 3.1 Albumin/Globulin Ratio 1.5 1.4 Lipase 83 PFSH Medical History DVT (deep venous thrombosis) Diverticulitis Invasive carcinoma of breast (03/21/17) Nodule of left lobe of thyroid gland (03/05/17) Essential hypertension (03/05/17) Old myocardial infarction (12/01/15) Mixed hyperlipidemia (12/01/15) Surgical History Hx of section H/O bilateral mastectomy Family History Mother Alive and well Father Myocardial infarction Son Autism Son Asthma Daughter Asthma Social History household members: family Smoking Status: Never smoker alcohol intake: current substance use type: does not use 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 Acute reccurent diverticulitis. Present on admission and active. 2. Remote DVT. Present on admission and stable. 3. Hypertension, present on admission stable. PLAN: Continue IV ciprofloxacin and flagyl. IV pain control. Clear liquid diet. IVF and monitor for sepsis . Monitor blood pressure and resume home hypertensive medication accordingly. Resume homes Xarelto. DVT prophylaxis Xarelto Code status full code Inpatient status, anticipate 2 midnight stay in the hospital. Time-Based Coding :: [TOTAL MINUTES] spent with patient and on the chart (including review of chart, obtaining history, exam, reviewing outside data, placing orders, documenting exam and treatment plan, and counseling patient) on [DATE]. Quality VTE Deep Vein Thrombosis/Pulmonary Embolism Present on Admission: No
[2024-06-24] MEDS: CIPROFLOXACIN 400 MG/200 ML PIGGYBACK 200 MG IV ×2 (08:53→20:05)
[2024-06-24] MEDS: SODIUM CHLORIDE 0.9% 1,000 ML 100 ML IV ×2 (10:22)
--- NOTE | 2024-06-24 13:36 | CM.DANOTE ---
Patient is a 59 yo female who was admitted OBS Status on 06/23/24 for Diverticulitis. Pt has [employer] and [employer] for insurance and her PCP is Divya Dupree at the [facility]. EMR was reviewed. Per MD, pt with hx of diverticulitis, breast CA, and recent outpt abx and now admitted for IV-Abx, fluids, clear liquids, and pain management for diverticulitis. Per RN, pt has been independent in room and still on clear liquids and mostly pain management. SW met bedside with pt and explained role and pt confirms she lives on [address] and has a large family of 8 who also live on [address] and pt drives and is active at baseline, currently not working, does not use DME for ambulation and confirms her PCP on [place]. Pt has hx of diverticulitis and aware of the process of slowly advancing diet and pain control. Pt confirms that her family can provide transport at d/c and depending on when pt discharges, she typically uses the Pharmacy on [place] but they are closed on weekends and therefore pt would likely need meds sent to a Pharmacy here in [place] for pickup prior to returning to [place]. Pt may also need Priority Boarding pass depending when she is discharged and if she can secure a reservation back. Pt does not anticipate any further discharge planning needs at this time besides which pharmacy for meds to be filled at d/c and possible ferry pass. RICKY Castillo Discharge Planning/Care Management CM Discharge Assessment Start: 06/24/24 13:21 Freq: Status: Active Protocol: Document 06/24/24 13:22 BF (Rec: 06/24/24 13:23 BF [id number]) Discharge Planning Assessment Assigned Marketing Agent RICKY Cook DPOA/Assigned Designee Name none Advance Directives? No Advance Directives on File No History Provided By Patient,Medical Record Has Patient been admitted in last 30 No days? Prior Living Arrangements House Household Members family Type of transporation used prior to Drives own vehicle admit Independent with ADL's Yes Is patient alert and oriented? Yes Caregiver for Another No Barriers to Discharge No Comment Home w/family Discharge Plan Home Transportation Arrangement Family, requests priority board pass Referrals Initiated None needed Whiteboard Updated in Patient Room with Yes name and ext. # of Marketing Agent Review Status In Process Please Provide Date Initial DC 06/24/24 Assessment Was Performed Next Review Type Continued Stay Review
[2024-06-24] MEDS: ONDANSETRON 4 MG ODT PO (15:13)
[2024-06-24] MEDS: GABAPENTIN 300 MG CAPSULE PO ×2 (15:13→21:17)
[2024-06-24] MEDS: IBUPROFEN 400 MG TABLET PO (15:37)
[2024-06-24] MEDS: PROCHLORPERAZINE 10 MG/2 ML VIAL 5 MG IV (16:31)
[2024-06-24] MEDS: ANASTROZOLE 1 MG TABLET PO (21:17)
[2024-06-24] MEDS: RIVAROXABAN 10 MG TABLET 20 MG PO (21:17)
[2024-06-24] MEDS: lisinopriL 10 MG TABLET 40 MG PO (21:18)
[2024-06-24] MEDS: PANTOPRAZOLE DR 40 MG TABLET PO (21:18)
[2024-06-25] MEDS: SODIUM CHLORIDE 0.9% 1,000 ML 100 ML IV (00:41)
[2024-06-25] MEDS: metroNIDAZOLE 500 MG/100 ML PIGGYBACK 100 MG IV ×2 (03:39→10:39)
[2024-06-25] MEDS: HYDROMORPHONE 0.5 MG INJ IV (03:40)
[2024-06-25 08:00] VITALS: BP 155/98; PULSE 91; RESP 16; TEMP 37.2; O2SAT 94
[2024-06-25] MEDS: PROCHLORPERAZINE 10 MG/2 ML VIAL 5 MG IV (09:17)
[2024-06-25] MEDS: OXYCODONE IR 10 MG TABLET PO (09:21)
[2024-06-25] MEDS: GABAPENTIN 300 MG CAPSULE PO (09:21)
[2024-06-25] MEDS: IBUPROFEN 400 MG TABLET PO (09:21)
[2024-06-25] MEDS: CIPROFLOXACIN 400 MG/200 ML PIGGYBACK 200 MG IV (09:28)
--- NOTE | 2024-06-25 11:03 | P.DS_ITS ---
History of Present Illness History of Present Illness Date Patient Seen: 06/25/24 Time Patient Seen: 09:00 Date of Onset of Symptoms: 06/23/24 Chief complaint: diverticulitis attack Narrative: 59-year-old female with past medical history of DVT on Xarelto, recurrent diverticulitis, breast cancer, hypertension and coronary artery disease presents with complaint of abdominal pain. Of note the patient was recently treated as outpatient for diverticulitis with pain medication and oral antibiotic (prescribed empirically by her GI physician due to frequent recurrent diverticulitis). However for the patient report, despite taking her pain medication orally at home, the patient continue to have significant abdominal pain. The patient however denies any fever or chills. The patient admit to have some nausea but denies any vomiting, GI lead or diarrhea. In our emergency room, the patient with hemodynamically stable without sign of sepsis. Laboratory were benign except for only mild elevated ALT and AST. Due to ongoing pain the patient did have another CT scan which shows acute diverticulitis without signs of abscess or perforation. Our ER physician requested admission for IV antibiotic and pain control. Discharge Providers Provider Date of admission: 06/23/24 20:22 Discharge Date: 06/25/24 Primary care physician: Divya Dupree MD Discharge provider: Pedro Malone MD Summary Hospital Course Discharge Diagnosis: 1. Acute reccurent diverticulitis. Present on admission and active. 2. Remote DVT. Present on admission and stable. 3. Hypertension, present on admission stable. Hospital Course: The patient was admitted and placed on IV ciprofloxacin and metronidazole, IV pain control, clear liquid diet and IV fluids for hydration. There was no evidence of sepsis and she remained clinically stable throughout the hospitalization. She was continued on her routine home medications. Blood pressure was mildly elevated intermittently during her hospitalization and outpatient follow-up was advised, and she is continued on her usual home medications otherwise at discharge Time Spent with Patient Time spent: Less than 30 minutes Exam Vital Signs (past 8 hours): - 06/25/24 08:00 Temperature 99.0 F Pulse Rate 91 H Respiratory Rate 16 Blood Pressure 155/98 H Pulse Oximetry 94 Oxygen Flow Rate 0 Oxygen Delivery Method Room Air Oxygen Flow Rate 0 Narrative Exam Narrative: NAD, alert and oriented. Fluent speech. Lungs are clear, normal rate and effort. Heart is regular, no murmur gallop or rub. Abdomen is soft, non distended. LLQ mild tenderness, no guarding or rebound. Extremities are free of edema. Objective Imaging *: Radiologist's impression: Abdomen-pelvis CT scan 06/23/2024: 1. Finding is suggestive of acute diverticulitis involving proximal sigmoid colon in left lower quadrant. No abscess collection. No signs of perforation. No free fluid or free air. 2. No bowel obstruction. No other area of abnormal bowel wall thickening. Normal appendix. 3. Tiny nonobstructing bilateral renal calculi without hydronephrosis. 4. Moderate to severe hepatic steatosis. Labs 06/23/24 15:52 06/23/24 15:52 [facility] Medical History DVT (deep venous thrombosis) Diverticulitis Invasive carcinoma of breast (03/21/17) Nodule of left lobe of thyroid gland (03/05/17) Essential hypertension (03/05/17) Old myocardial infarction (12/01/15) Mixed hyperlipidemia (12/01/15) Surgical History Hx of section H/O bilateral mastectomy Family History Mother Alive and well Father Myocardial infarction Son Autism Son Asthma Daughter Asthma Social History household members: family Smoking Status: Never smoker alcohol intake: current substance use type: does not use 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 Dupree within 1 week Discharge orders & Medications Prescriptions: New amoxicillin-pot clavulanate 875-125 mg tablet 1 tab PO BID Qty: 28 0RF Continued metoprolol succinate 50 MG tablet extended release 24 hr 50 mg PO QDAY Qty: 30 1RF anastrozole 1 mg tablet 1 mg PO DAILY Patient Comments: TAKE ONE(1) TABLET BY MOUTH ONCE DAILY prochlorperazine maleate 10 mg tablet 5 mg PO TID Patient Comments: TAKE ONE-HALF(1/2) TABLET BY MOUTH THREE(3) TIMES DAILY NEEDED FORNAUSEA pantoprazole 40 mg tablet,delayed release (DR/EC) 40 mg PO BEDTIME gabapentin 100 mg capsule 300 mg PO TID Patient Comments: TAKE THREE(3) CAPSULES BY MOUTH THREE(3) TIMES DAILY Xarelto 20 mg tablet 20 mg PO BEDTIME Patient Comments: TAKE ONE(1) TABLET BY MOUTH ONCE DAILY lisinopril 10 MG tablet 40 mg PO QDAY trazodone 50 mg tablet 150 mg PO BEDTIME ondansetron 4 mg tablet,disintegrating 4 mg PO Q8H PRN (Reason: Sleep) oxycodone 5 mg tablet 5 mg PO Q6H PRN (Reason: pain) Qty: 14 0RF Follow up/Referrals: Divya Dupree MD [Primary Care Provider] - Diet/Activity/Treatments Diet: Full Liquid Visit Report/Discharge Packet Stand Alone Forms: Patient Portal/API Discharge Data Primary Care Provider: Divya Dupree Attending Provider: Alexander Preston Admit Date/Time: 06/23/24 20:22 Quality VTE Deep Vein Thrombosis/Pulmonary Embolism Present on Admission: No MIPS - Admit I confirm the patient?s Advance Care Plan is present, Code status is documented, Surrogate decision maker is in patient?s record [If Yes, STOP here]: Yes MIPS - Meds 'Current medications' to include all prescriptions, [id number] products, herbals, cannabis/cannabidiol products, and vitamin/mineral/dietary (nutritional) supplements. I have utilized all available resources to obtain, update, or review the patient?s current medications. [If Yes, STOP here]: Yes MIPS - DC The patient has a history of heart transplant or Left Ventricular Assist Device (LVAD). If yes, STOP here.: No The patient has current or prior documentation of left ventricular ejection fraction (LVEF) less than or equal to 40%, or moderate or severely depressed left ventricular systolic function.: No A. The patient was prescribed or already taking an Angiotensin-Converting Enzyme (ASTRID) Inhibitor, or Angiotensin Receptor Hoa (ARB).: No B. The patient was prescribed or already taking a beta-hoa. [If Yes to Both A & B, STOP here]: No Patient not prescribed/taking ASTRID or ARB, no reason given.: No Patient not prescribed/taking beta-hoa, no reason given.: No
--- NOTE | 2024-06-25 11:49 | PC.NURSE ---
Day shift: Left unit via WC at approx 1145. Paperwork signed and all questions answered. Pt has all personal belongings. Has priority boarding pass for [place] also. PCT Tessy took Pt to car. Pt's Spouse is driving. Pain well controlled per MAR this AM.
--- NOTE | 2024-06-25 11:52 | CM.DPC ---
DCP Continued: Reviewed EMR and team rounds for pt?s medical status. Per rounds, pt expected to be cleared for discharge today. DCP entered room, introduced self and role. Present is patient's . Patient reports she is prepared to discharge home to [place]. DCP discussed medical priority boarding pass [place] to [place], pt explained she would be appreciative for one. DCP acquired Medical Priority boarding pass for [place] to [facility] route for today, 06/25. Printed copy delivered to patient room. Plan: Pt to discharge home with family. CM Team will continue to follow for coordination of discharge plans. LAMAR Elliott
== END 2024-06-25 11:51 | disposition home or self-care (01) ==
LOC: ED 20:12 → AC 20:23
PROVIDERS: Emergency Medicine; Admitting Provider Internal Medicine; Emergency Provider Emergency Medicine; PCP Family Medicine; Referring Provider Emergency Medicine; Visit Provider Internal Medicine
DX: K57.32 Diverticulitis of large intestine without perforation or abscess without bleeding (principal); I10 Essential (primary) hypertension; Z86.718 Personal history of other venous thrombosis and embolism; Z79.01 Long term (current) use of anticoagulants
CPT/HCPCS: 36415; 74177; 80053; 81003; 83605; 83690; 85025; 93005; 93010; 96361; 96365; 96366; 96367; 96375; 96376; 99284; G0378; J0744; J0780; J1170; J2405; Q9967

== ENCOUNTER 2024-09-13 10:27 | Emergency (ER) | payer OTHER, SELFPAY ==
[2024-06-23 21:11] VITALS: BMI 37.2
[2024-09-13] VITALS (10 sets, daily range): BP systolic 156–182; BP diastolic 70–100; PULSE 70–81; RESP 17–22; TEMP 36.7; O2SAT 91–98; BMI 36.3
--- NOTE | 2024-09-13 10:48 | EKG_ITS ---
[address] [address] Test Date: 2024-09-13 Pat Name: Arabella Dukes Department: [facility] Room: Gender: Female Floral Associate: ALLAN : 1965 Requested By: Order Number: [id number] Reading MD: Ronal Nieto Measurements Intervals [place] Rate: 64 P: 34 MI: 166 QRS: -11 QRSD: 84 T: 8 QT: 414 QTc: 427 Interpretive Statements Normal sinus rhythm Electronically Signed On 09-14-2024 19:42:34 PST by Ronal Nieto
[2024-09-13 11:31] LABS: Alanine Aminotransferase 36 IU/L (<35); Albumin 4.4 g/dL (3.5-5.0); Albumin Globulin Ratio 1.5 (1.0-2.8); Alkaline Phosphatase 87 U/L (38-126); Aspartate Aminotransferase 33 IU/L (14-36); BUN Creatinine Ratio 14.1 (6-22); Bilirubin Total 0.7 mg/dL (0.2-1.3); Blood Urea Nitrogen 11 mg/dL (7-17); Calcium 8.7 mg/dL (8.4-10.2); Carbon Dioxide 27 mmol/L (22-32); Chloride 107 mmol/L (98-107); Estimated Glomerular Filt Rate > 60 mL/min (>60); Globulin 2.9 g/dL (1.7-4.1); Glucose 107 mg/dL (70-100); HEMOLYSIS < 15 (0-50); Lipase 43 U/L (23-300); Sodium 142 mmol/L (137-145); Total Protein 7.3 g/dL (6.3-8.2)
[2024-09-13 11:33] LABS: Add Manual Diff / Slide Review NO; Basophils Absolute Auto 100 /uL (0-100); Basophils Percent Auto 0.5 % (0-2); Eosinophils Absolute Auto 100 /uL (0-450); Eosinophils Percent Auto 0.8 % (2-4); Hemoglobin 14.7 g/dL (12.0-16.0); Lymphocytes Absolute Auto 1800 /uL (1100-4500); Lymphocytes Percent Auto 13.8 % (25-40); Mean Corpuscular HGB Conc 33.4 % (30-36); Mean Corpuscular Volume 95.8 fL (80-100); Monocytes Absolute Auto 700 /uL (0-900); Monocytes Percent Auto 5.1 % (3-14); Neutrophils Absolute Auto 10200 /uL (1500-7000); Neutrophils Percent Auto 79.8 % (50-75); Platelet Count 268 X10^3/uL (150-400); Red Blood Cell Count 4.59 X10^6/uL (4.0-5.2); Red Cell Distribution Width 12.8 % (11.6-14.8); White Blood Cell Count 12.8 X10^3/uL (4.5-11.0)
--- NOTE | 2024-09-13 11:44 | ED.ABDPAIN ---
HPI - Abdominal Pain General Chief Complaint: Abdominal Pain Stated Complaint: Throwing up blood Time Seen by Provider: 09/13/24 11:43 History of Present Illness HPI narrative: Patient is a 59-year-old female history of DVT on Xarelto breast cancer on anastrozole presenting today with vomiting blood. She reports that last night around 3:00 a.m. she started vomiting some blood. She took a picture of the last 1 which showed some blood specks but not copious amounts or cupfuls of blood. She was having some epigastric pain as well. She denies any rectal bleeding. Nursing note mentions esophageal varices however patient is unsure what those are and denies having esophageal varices. She states that she is having significant coccyx and rectal pain and has been for the last month after she was thrown off a horse. She was actually coming to the hospital today for an outpatient x-ray but since she started vomiting blood she came to the ED. She has not dizzy or lightheaded no significant shortness of breath or chest pain. Related Data Home Medications Medication Instructions Recorded Confirmed anastrozole 1 mg tablet 1 mg PO DAILY 04/19/21 06/23/24 gabapentin 100 mg capsule 300 mg PO TID 04/19/21 06/23/24 pantoprazole 40 mg tablet,delayed 40 mg PO BEDTIME 04/19/21 06/23/24 release prochlorperazine maleate 10 mg 5 mg PO TID 04/19/21 06/23/24 tablet rivaroxaban 20 mg tablet (Xarelto) 20 mg PO BEDTIME 04/19/21 06/23/24 lisinopril 10 mg tablet 40 mg PO QDAY 10/21/23 06/23/24 ondansetron 4 mg disintegrating 4 mg PO Q8H PRN Sleep 06/23/24 06/23/24 tablet trazodone 50 mg tablet 150 mg PO BEDTIME 06/23/24 06/24/24 Previous Rx's Medication Instructions Recorded metoprolol succinate 50 mg 50 mg PO QDAY ##30 02/27/17 tablet,extended release 24 hr amoxicillin 875 mg-potassium 1 tab PO BID #28 tabs 06/25/24 clavulanate 125 mg tablet oxycodone 5 mg tablet 5 mg PO Q6H PRN pain #14 tabs 06/25/24 metoclopramide HCl 10 mg tablet 10 mg PO Q6H PRN nausea and 09/13/24 (Reglan) vomiting #20 tabs Allergies Allergy/AdvReac Type Severity Reaction Status Date / Time adhesive tape AdvReac Rash Verified 03/27/24 14:18 Patient History Medical History DVT (deep venous thrombosis) Diverticulitis Invasive carcinoma of breast (03/21/17) Nodule of left lobe of thyroid gland (03/05/17) Essential hypertension (03/05/17) Old myocardial infarction (12/01/15) Mixed hyperlipidemia (12/01/15) Surgical History Hx of section H/O bilateral mastectomy Family History Mother Alive and well Father Myocardial infarction Son Autism Son Asthma Daughter Asthma Social History household members: family Smoking Status: Never smoker alcohol intake: current substance use type: does not use additional social history: 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 RESPIRATORY: Breath sounds equal bilaterally, no wheezes rales or rhonchi. ABDOMEN: Soft, tender epigastric left upper quadrant pain no guarding or rebound EXTREMITIES: Normal range of motion, no clubbing or edema. Neurovascularly intact NEUROLOGICAL: Alert and oriented x4.Normal gait and speech. Cranial nerves II through XII grossly intact. SKIN: Warm, dry, no laceration, no petechiae, no rashes or lesions. Course Orders Ordered: ED Orders 09/13/24 10:48 EKG-12 Lead Stat 09/13/24 11:13 Complete Blood Count AUTO DIFF Stat Comprehensive Metabolic Panel Stat Lactate (Lactic Acid) Stat Lipase Stat PT [Prothrombin Time INR] Stat PTT [PTT Partial Thromboplastin Fortunato] Stat 09/13/24 11:52 CT angio Abd/Pel GI Bleed Stat Discontinued Medications Acetaminophen (Acetaminophen 325 Mg Tablet) 975 mg PO NOW ONE Stop: 09/13/24 14:04 Last Admin: 09/13/24 14:07 Dose: 975 mg Documented By: MADELINE Metoclopramide HCl (Metoclopramide 10 Mg/2 Ml Inj) 10 mg IV NOW ONE Stop: 09/13/24 13:46 Last Admin: 09/13/24 13:58 Dose: 10 mg Documented By: MADELINE Morphine Sulfate (Morphine 2 Mg/Ml Inj) 2 mg IV NOW ONE Stop: 09/13/24 11:52 Last Admin: 09/13/24 12:41 Dose: 2 mg Documented By: SALVATORE Ondansetron HCl (Ondansetron 4 Mg/2 Ml Inj) 4 mg IV NOW PRN PRN Reason: Nausea And Vomiting Last Admin: 09/13/24 12:41 Dose: 4 mg Documented By: SALVATORE Ondansetron HCl (Ondansetron 4 Mg Odt) 4 mg PO NOW PRN PRN Reason: Nausea And Vomiting Pantoprazole Sodium (Pantoprazole 40 Mg Vial) 80 mg IV NOW ONE Stop: 09/13/24 11:52 Last Admin: 09/13/24 12:40 Dose: 80 mg Documented By: SALVATORE Vital Signs Vital signs: Vital Signs - 8 hr 09/13/24 11:00 09/13/24 11:13 09/13/24 11:13 Pulse Rate 75 70 Respiratory Rate 21 Blood Pressure 175/95 H Pulse Oximetry 98 Oxygen Delivery Method 09/13/24 11:30 09/13/24 11:30 09/13/24 12:51 Pulse Rate 76 76 Respiratory Rate 22 Blood Pressure 156/70 H Pulse Oximetry 94 97 Oxygen Delivery Method 09/13/24 12:53 09/13/24 12:53 09/13/24 13:00 Pulse Rate 73 75 Respiratory Rate 17 20 Blood Pressure 165/94 H 165/100 H Pulse Oximetry 94 92 Oxygen Delivery Method 09/13/24 13:30 09/13/24 14:00 Pulse Rate 81 79 Respiratory Rate 20 18 Blood Pressure 182/84 H 177/88 H Pulse Oximetry 91 92 Oxygen Delivery Method Room Air MDM - Abdominal Pain Lab Data 09/13/24 11:13 09/13/24 11:13 Labs: Lab Results 09/13/24 Range/Units 11:13 WBC 12.8 H (4.5-11.0) X10^3/uL RBC 4.59 (4.0-5.2) X10^6/uL Hgb 14.7 (12.0-16.0) g/dL Hct 44.0 (36-46) % MCV 95.8 (80-100) fL MCH 32.0 (26-34) PG MCHC 33.4 (30-36) % RDW 12.8 (11.6-14.8) % Plt Count 268 (150-400) X10^3/uL Neut % (Auto) 79.8 H (50-75) % Lymph % (Auto) 13.8 L (25-40) % [place] % (Auto) 5.1 (3-14) % Eos % (Auto) 0.8 L (2-4) % Baso % (Auto) 0.5 (0-2) % Neut # (Auto) 07567 H (2582-4912) /uL Lymph # (Auto) 1800 (4110-7730) /uL [place] # (Auto) 700 (0-900) /uL Eos # (Auto) 100 (0-450) /uL Baso # (Auto) 100 (0-100) /uL PT 16.6 H (9.4-12.5) SECONDS INR 1.5 H (0.9-1.3) APTT 40 H (25.1-36.5) SECONDS Sodium 142 (137-145) mmol/L Potassium 4.0 (3.4-5.1) mmol/L Chloride 107 (98-107) mmol/L Carbon Dioxide 27 (22-32) mmol/L BUN 11 (7-17) mg/dL Creatinine 0.78 (0.52-1.04) mg/dL Estimated GFR > 60 (>60) mL/min BUN/Creatinine Ratio 14.1 (6-22) Glucose 107 H (70-100) mg/dL Lactate 1.8 (0.7-2.1) mmol/L Calcium 8.7 (8.4-10.2) mg/dL Total Bilirubin 0.7 (0.2-1.3) mg/dL AST 33 (14-36) IU/L ALT 36 H (<35) IU/L Alkaline Phosphatase 87 (38-126) U/L Total Protein 7.3 (6.3-8.2) g/dL Albumin 4.4 (3.5-5.0) g/dL Globulin 2.9 (1.7-4.1) g/dL Albumin/Globulin Ratio 1.5 (1.0-2.8) Lipase 43 (23-300) U/L Point of care testing: Urine Dip Bedside Urine Glucose Negative Bedside Urine Bilirubin - Negative Bedside Urine Ketone - Negative Urine Specific [place] 1.010 Bedside Urine Occult Blood - Negative Bedside Urine pH 6.0 Bedside Urine Protein - Negative Bedside Urine Urobilinogen - Negative Bedside Urine Nitrite - Negative Bedside Urine Leukocytes - Negative Esterase Imaging Data CT scan - abdomen/pelvis: Radiologist's Impression: PROCEDURE: CT ANGIO ABD/PEL GI BLEED INDICATIONS: Abdominal Pain-gi bleed TECHNIQUE: After the administration of intravenous contrast, 2.5 mm thick sections acquired from the diaphragm to the symphysis. 10 mm maximum-intensity projection (MIP) reformats were then acquired. For radiation dose reduction, the following was used: automated exposure control. COMPARISON: [facility], CT, CT ABDOMEN PELVIS W CON, 06/23/2024, 17:23. FINDINGS: Image Quality: Diagnostic. Abdominal aorta and iliac arteries: Abdominal aorta appears normal in caliber without abdominal aortic aneurysm, significant stenosis or aneurysmal dilatation. Bilateral common iliac, external iliac and internal iliac arteries and associated branches are patent. Mesenteric arteries: No evidence of active GI bleeding. Celiac artery and associated branches are patent. SMA is patent. Replaced right hepatic artery arising from the SMA, a normal variant. LEYLA is patent. Renal arteries: Patent without hemodynamically significant stenosis. OTHER: Lower Chest: No significant findings. Liver: Liver demonstrates diffusely decreased attenuation compatible with diffuse fatty infiltration with areas of focal fat sparing along the gallbladder fossa. Small hypodense lesion within segment 8 of the liver (series 10, image 18) and additional smaller hypodense lesions within the left hepatic lobe likely cysts versus hemangiomas. Gallbladder: No radiopaque gallstones or wall thickening. Biliary ducts: No biliary dilation. Pancreas: No focal mass lesion. No pancreatic duct dilatation. Spleen: Size is within normal limits. Adrenal Glands: No adrenal nodules. Kidneys and Ureters: 5 mm nonobstructing stone lower pole right kidney (series 4, image 98). Smaller 4 mm nonobstructing stone upper pole right kidney (series 4, image 84). 3 mm nonobstructing stone lower pole left kidney (series 4, image 85) and a smaller nonobstructing punctate stone within the upper pole left kidney (series 4, image 65). No other renal or ureteral calculi. No evidence of hydronephrosis. No solid renal mass. Stomach and Bowel: Small large bowel appear normal in caliber without evidence of bowel obstruction. Extensive colonic diverticulosis, most notably involving the sigmoid colon, without evidence of diverticulitis. The Peritoneum: No abnormal intraperitoneal fluid. No free air. Ventral Wall: Small umbilical hernia containing fat. Abdominal Nodes: No retroperitoneal or mesenteric adenopathy by size criteria. Vessels: IVC is unremarkable. Aorta as above. PELVIS: Pelvic Organs: Unremarkable. Bladder: Unremarkable. Pelvic Nodes: No enlarged lymph nodes. Miscellaneous: No inguinal hernias are seen. Bones: No aggressive osseous abnormality. IMPRESSION: 1. No evidence of active GI bleeding. 2. Hepatic steatosis as described. 3. Colonic diverticulosis without evidence of diverticulitis. 4. Bilateral nonobstructing renal calculi. Dictated by: José Manuel Figueroa M.D. on 09/13/2024 at 12:24 ECG Data Attestation: I personally reviewed and interpreted this ECG as follows: Interpretation: Normal sinus rhythm rate 64 CO interval 166 QRS [address] changes MDM Narrative Medical decision making narrative: [facility] CC: Vomiting blood, coccyx pain Complicating co-morbidities: Breast cancer prior DVT on Eliquis Medical records reviewed: [ ] Differential considered: Ulcer Exam documented above, pertinent findings include: Tender epigastric left upper quadrant no significant distention Lab Test results independently reviewed as above. Pertinent findings: WBC 12.8, hemoglobin 14.7 hematocrit 44, platelets 268 Sodium 142 potassium 4.0 chloride 107 bicarb 27 BUN 11 creatinine 0.7 Bilirubin 0.7 AST 33 ALT 36 alk-phos 87 lipase 43 Independently reviewed EKG as above no ischemia Imaging studies independently reviewed: CT angio did not show any active bleeding no bony abnormality Consultations:none Treatments: Protonix Zofran Re-evaluations: Patient is still feeling nauseous but not wanting anymore pain medicine she did get 1 dose of morphine which she said helped. She has not had any further episodes of vomiting. Discussion: Patient 59-year-old female presenting today with episode of vomiting blood abdominal pain. She is on anticoagulation she did show me a picture of her vomit which is very scant amounts of blood. She has had no further episodes of hematemesis in the ED. She has no history of esophageal varices. She is hemodynamically stable hemoglobin hematocrit and platelets are within normal limits. She is enrolled BUN to creatinine ratio. At this time I do recommend that she hold her anticoagulation supportive care only. Discharge Plan Departure Patient Disposition: Home Clinical Impression: Gastritis Instructions: DI for Viral Gastroenteritis -- Adult Activity Restrictions/Additional Instructions: *You have been diagnosed with gastritis *What to do: At this time blood work is overall reassuring your CT scan does not show any bleeding or broken bones. Increase fluids as tolerated recommend electrolyte fluids. You are probably vomiting some blood due to the Xarelto I will hold the Xarelto for a couple days and restart it once the vomiting has stopped *Continue to take medications as directed Hold Xarelto until vomiting stops Tylenol 1000 mg every 6 hours if needed for [id number] pain *Follow up with your primary care provider in 2-3 days or call [phone] *Return to ER if you should have persistent vomiting increasing mount of blood increasing pain dizziness lightheadedness passing or any new, worsening or concerning symptoms Prescriptions: New metoclopramide HCl [Reglan] 10 mg tablet 10 mg PO Q6H PRN (Reason: nausea and vomiting) Qty: 20 0RF No Action metoprolol succinate 50 MG tablet extended release 24 hr 50 mg PO QDAY Qty: 30 1RF anastrozole 1 mg tablet 1 mg PO DAILY Patient Comments: TAKE ONE(1) TABLET BY MOUTH ONCE DAILY prochlorperazine maleate 10 mg tablet 5 mg PO TID Patient Comments: TAKE ONE-HALF(1/2) TABLET BY MOUTH THREE(3) TIMES DAILY NEEDED FORNAUSEA pantoprazole 40 mg tablet,delayed release (DR/EC) 40 mg PO BEDTIME gabapentin 100 mg capsule 300 mg PO TID Patient Comments: TAKE THREE(3) CAPSULES BY MOUTH THREE(3) TIMES DAILY Xarelto 20 mg tablet 20 mg PO BEDTIME Patient Comments: TAKE ONE(1) TABLET BY MOUTH ONCE DAILY lisinopril 10 MG tablet 40 mg PO QDAY trazodone 50 mg tablet 150 mg PO BEDTIME ondansetron 4 mg tablet,disintegrating 4 mg PO Q8H PRN (Reason: Sleep) amoxicillin-pot clavulanate 875-125 mg tablet 1 tab PO BID Qty: 28 0RF oxycodone 5 mg tablet 5 mg PO Q6H PRN (Reason: pain) Qty: 14 0RF Referrals: Divya Dupree MD [Primary Care Provider] - Stand Alone Forms: Patient Portal/API/Survey
[2024-09-13 11:52] LABS: INR 1.5 (0.9-1.3); Prothrombin Time 16.6 SECONDS (9.4-12.5)
--- NOTE | 2024-09-13 11:52 | DI.CT.S_ITS ---
PROCEDURE: CT ANGIO ABD/PEL GI BLEED INDICATIONS: Abdominal Pain-gi bleed TECHNIQUE: After the administration of intravenous contrast, 2.5 mm thick sections acquired from the diaphragm to the symphysis. 10 mm maximum-intensity projection (MIP) reformats were then acquired. For radiation dose reduction, the following was used: automated exposure control. COMPARISON: [facility], CT, CT ABDOMEN PELVIS W CON, 06/23/2024, 17:23. FINDINGS: Image Quality: Diagnostic. Abdominal aorta and iliac arteries: Abdominal aorta appears normal in caliber without abdominal aortic aneurysm, significant stenosis or aneurysmal dilatation. Bilateral common iliac, external iliac and internal iliac arteries and associated branches are patent. Mesenteric arteries: No evidence of active GI bleeding. Celiac artery and associated branches are patent. SMA is patent. Replaced right hepatic artery arising from the SMA, a normal variant. LEYLA is patent. Renal arteries: Patent without hemodynamically significant stenosis. OTHER: Lower Chest: No significant findings. Liver: Liver demonstrates diffusely decreased attenuation compatible with diffuse fatty infiltration with areas of focal fat sparing along the gallbladder fossa. Small hypodense lesion within segment 8 of the liver (series 10, image 18) and additional smaller hypodense lesions within the left hepatic lobe likely cysts versus hemangiomas. Gallbladder: No radiopaque gallstones or wall thickening. Biliary ducts: No biliary dilation. Pancreas: No focal mass lesion. No pancreatic duct dilatation. Spleen: Size is within normal limits. Adrenal Glands: No adrenal nodules. Kidneys and Ureters: 5 mm nonobstructing stone lower pole right kidney (series 4, image 98). Smaller 4 mm nonobstructing stone upper pole right kidney (series 4, image 84). 3 mm nonobstructing stone lower pole left kidney (series 4, image 85) and a smaller nonobstructing punctate stone within the upper pole left kidney (series 4, image 65). No other renal or ureteral calculi. No evidence of hydronephrosis. No solid renal mass. Stomach and Bowel: Small large bowel appear normal in caliber without evidence of bowel obstruction. Extensive colonic diverticulosis, most notably involving the sigmoid colon, without evidence of diverticulitis. The Peritoneum: No abnormal intraperitoneal fluid. No free air. Ventral Wall: Small umbilical hernia containing fat. Abdominal Nodes: No retroperitoneal or mesenteric adenopathy by size criteria. Vessels: IVC is unremarkable. Aorta as above. PELVIS: Pelvic Organs: Unremarkable. Bladder: Unremarkable. Pelvic Nodes: No enlarged lymph nodes. Miscellaneous: No inguinal hernias are seen. Bones: No aggressive osseous abnormality. IMPRESSION: 1. No evidence of active GI bleeding. 2. Hepatic steatosis as described. 3. Colonic diverticulosis without evidence of diverticulitis. 4. Bilateral nonobstructing renal calculi. Dictated by: José Manuel Figueroa M.D. on 09/13/2024 at 12:24 Approved by: José Manuel Figueroa M.D. on 09/13/2024 at 12:38
[2024-09-13 11:55] LABS: PTT Partial Thromboplastin Tim 40 SECONDS (25.1-36.5)
[2024-09-13 11:56] LABS: Lactate (Lactic Acid) 1.8 mmol/L (0.7-2.1)
[2024-09-13] MEDS: PANTOPRAZOLE 40 MG VIAL 80 MG IV (12:40)
[2024-09-13] MEDS: ONDANSETRON 4 MG/2 ML INJ IV (12:41)
[2024-09-13] MEDS: MORPHINE 2 MG/ML INJ IV (12:41)
[2024-09-13] MEDS: METOCLOPRAMIDE 10 MG/2 ML INJ IV (13:58)
[2024-09-13] MEDS: ACETAMINOPHEN 325 MG TABLET 975 MG PO (14:07)
== END 2024-09-13 14:15 | disposition home or self-care (01) ==
PROVIDERS: Emergency Provider Emergency Medicine; PCP Family Medicine
DX: K29.70 Gastritis, unspecified, without bleeding (principal); K92.0 Hematemesis
CPT/HCPCS: 36415; 74174; 80053; 81003; 83605; 83690; 85025; 85610; 85730; 93005; 96374; 96375; 99284; J2270; J2405; J2470; J2765

== ENCOUNTER 2024-11-04 10:37 | Observation (INO) | payer OTHER, SELFPAY ==
[2024-06-23 21:11] VITALS: BMI 37.2
[2024-11-04] VITALS (21 sets, daily range): BP systolic 88–141; BP diastolic 59–86; PULSE 59–80; RESP 15–18; TEMP 36.1–36.9; O2SAT 92–100; BMI 40.5
--- NOTE | 2024-11-04 | DI.RAD.S_ITS ---
PROCEDURE: XR ABDOMEN 1V INDICATIONS: Cysto TECHNIQUE: 4 intra-operative images acquired by the Urology service. COMPARISON: [facility], CT, CT KIDNEY URETER BLADDER (KUB), 11/04/2024, 11:22. FINDINGS: Findings of right ureteral stent placement with appropriate positioning. Injected contrast material opacifies the right renal collecting system and bladder. IMPRESSION: Fluoroscopy was utilized by the ordering provider for intraoperative guidance. Approved by: Aleksander Guzmán M.D. on 11/04/2024 at 21:15
--- NOTE | 2024-11-04 10:52 | ED.ABDPAIN ---
HPI - Abdominal Pain <Agnes Mercado PA-C - Last Filed: 11/04/24 17:11> General Chief Complaint: Urogenital-Female Stated Complaint: SUSPECT KIDNEY STONE, R FLANK PAIN, BLOOD IN URINE Time Seen by Provider: 11/04/24 10:52 History of Present Illness HPI narrative: 59-year-old female presents with right flank pain from [place]. she developed pain at 8:30 a.m. in the morning and presented at the local clinic. 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 She states she was given Toradol intramuscularly by the paramedics along with fentanyl intranasally, Dilaudid and Zofran IV. She states her initial pain was 10/10 nonradiating and constant but it has come down to about a 5/10. She also endorsed some nausea and vomiting last vomiting at around 10:00 a.m. this morning. She takes Compazine regularly due to her anastrozole medication for breast cancer which gives her constant nausea. She reports a history of kidney stone found incidentally on previous imaging for other issues, she reports no previous intervention. She states no fever, chills, body aches or recent illness. She reports no urinary symptoms or abdominal pain but noticed some pink discoloration on the toilet paper this morning after void. No issues with bowel. Last bowel movement was yesterday, no straining no diarrhea. Medical history is significant for diverticulitis, myocardial infarction 2016 with catheterization at [facility] she does not believe she has any stents, Hypertension,bilateral mastectomy, DVT currently on Xarelto, left invasive breast carcinoma, idiopathic pericarditis. Her main concern is whether she is admitted or not and how to find a way home to [place]. All other systems are reviewed and are negative. Related Data Home Medications Medication Instructions Recorded Confirmed anastrozole 1 mg tablet 1 mg PO DAILY 04/19/21 06/23/24 gabapentin 100 mg capsule 300 mg PO TID 04/19/21 06/23/24 pantoprazole 40 mg tablet,delayed 40 mg PO BEDTIME 04/19/21 06/23/24 release prochlorperazine maleate 10 mg 5 mg PO TID 04/19/21 06/23/24 tablet rivaroxaban 20 mg tablet (Xarelto) 20 mg PO BEDTIME 04/19/21 06/23/24 lisinopril 10 mg tablet 40 mg PO QDAY 10/21/23 06/23/24 ondansetron 4 mg disintegrating 4 mg PO Q8H PRN Sleep 06/23/24 06/23/24 tablet trazodone 50 mg tablet 150 mg PO BEDTIME 06/23/24 06/24/24 Previous Rx's Medication Instructions Recorded metoprolol succinate 50 mg 50 mg PO QDAY ##30 02/27/17 tablet,extended release 24 hr amoxicillin 875 mg-potassium 1 tab PO BID #28 tabs 06/25/24 clavulanate 125 mg tablet oxycodone 5 mg tablet 5 mg PO Q6H PRN pain #14 tabs 06/25/24 metoclopramide HCl 10 mg tablet 10 mg PO Q6H PRN nausea and 09/13/24 (Reglan) vomiting #20 tabs Allergies Allergy/AdvReac Type Severity Reaction Status Date / Time adhesive tape AdvReac Rash Verified 03/27/24 14:18 Review of Systems <Agnes Mercado PA-C - Last Filed: 11/04/24 17:11> Review of Systems Narrative: all other systems reviewed and are negative. 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 (03/05/17) Essential hypertension (03/05/17) Old myocardial infarction (12/01/15) Mixed hyperlipidemia (12/01/15) Surgical History Hx of section H/O bilateral mastectomy Family History Mother Alive and well Father Myocardial infarction Son Autism Son Asthma Daughter Asthma Social History household members: family Smoking Status: Never smoker alcohol intake: current substance use type: does not use additional social history: 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 Const General: cooperative, comfortable, well developed, well groomed and No acute distress [facility] Mouth: oral mucosae normal, lip normal and tongue normal Eyes General: Yes appearance normal, both eyes and all related structures Sclera: sclerae normal Neck Neck: normal visual inspection, full ROM and no meningeal signs Chest Chest: normal inspection of the chest Other: Status post bilateral mastectomy. Tissues flat, normal color, turgor, temperature. Resp Effort & Inspection: normal respiratory effort and able to speak in complete sentences Auscultation: clear to auscultation bilaterally, no rales, no rhonchi and no wheezes Cardio Rate: regular rate Rhythm: regular rhythm Heart Sounds: S1 normal and S2 normal GI Inspection: normal to inspection, no abdominal wall ecchymosis, no edema and non-distended Palpation: soft, no hepatosplenomegaly and No guarding Percussion: normal to percussion Auscultation: normal bowel sounds Other: Right flank discomfort, no swelling, discoloration or mass. No guarding. Negative McBurney's point tenderness. No inguinal tenderness or swelling. No inguinal nodes. Negative psoas and obturator signs. Skin General: no rashes or lesions noted, elasticity normal and turgor normal Extrem Other: No lower leg edema. <Mera Mazariegos DO - Last Filed: 11/04/24 18:32> Initial Vital Signs Initial Vital Signs: Vital Signs Temperature 98.5 F 11/04/24 10:37 Pulse Rate 64 11/04/24 10:37 Respiratory Rate 18 11/04/24 10:37 Blood Pressure 131/85 11/04/24 10:37 Pulse Oximetry 92 11/04/24 10:37 Oxygen Delivery Method Room Air 11/04/24 10:37 Course <Agnes Mercado PA-C - Last Filed: 11/04/24 17:11> Orders Ordered: ED Orders 11/04/24 11:12 CT kidney ureter bladder (KUB) Stat 11/04/24 11:17 EKG-12 Lead Stat 11/04/24 11:52 CBC Auto Diff [Complete Blood Count AUTO DIFF] Stat CMP [Comprehensive Metabolic Panel] Stat Lipase Stat 11/04/24 12:46 Urinalysis and Microscopic Stat Acetaminophen (Acetaminophen 325 Mg Tablet) 975 mg PO Q6H PRN PRN Reason: Pain, Mild (1-3) Hydromorphone HCl (Hydromorphone 1 Mg Inj) 0 mg IV Q5MIN PRN PRN Reason: Pain, Moderate (4-6) Hydromorphone HCl (Hydromorphone 1 Mg Inj) 0 mg IV Q5MIN PRN PRN Reason: Pain, Severe (7-10) Hydromorphone HCl (Hydromorphone 1 Mg Inj) 0.5 mg IV Q2H PRN PRN Reason: Breakthrough Pain Hydroxyzine HCl (Hydroxyzine 50 Mg/Ml Inj) 25 mg IM NOW PRN PRN Reason: Pain, Mild (1-3) Lactated Ringer's (Lactated Ringers) 1,000 mls @ 42 mls/hr IV NOW ONE Stop: 11/05/24 16:30 Last Admin: 11/04/24 16:42 Dose: 42 mls/hr Documented By: KAREEM Ondansetron HCl (Ondansetron 4 Mg/2 Ml Inj) 4 mg IV NOW PRN PRN Reason: Nausea And Vomiting Ondansetron HCl (Ondansetron 4 Mg/2 Ml Inj) 4 mg IV Q4H PRN PRN Reason: Nausea And Vomiting Oxycodone HCl (Oxycodone Ir 5 Mg Tablet) 5 mg PO PACUNOW PRN PRN Reason: Mild or moderate pain Oxycodone HCl (Oxycodone Ir 5 Mg Tablet) 5 mg PO Q4H PRN PRN Reason: Pain, Moderate (4-6) Oxycodone HCl (Oxycodone Ir 10 Mg Tablet) 10 mg PO Q4HR PRN PRN Reason: Pain, Severe (7-10) Discontinued Medications Hydromorphone HCl (Hydromorphone 1 Mg Inj) 1 mg IV NOW ONE Stop: 11/04/24 12:33 Last Admin: 11/04/24 12:50 Dose: 1 mg Documented By: HELEN Lidocaine HCl 8 ml/ Sodium (Chloride) 58 mls @ 348 mls/hr IV NOW ONE Stop: 11/04/24 13:33 Last Infusion: 11/04/24 14:20 Dose: Infused Documented By: Admin: 11/04/24 14:05 Dose: 348 mls/hr Documented By: HELEN Ketorolac Tromethamine (Ketorolac 30 Mg/Ml Vial) 15 mg IV NOW ONE Stop: 11/04/24 12:06 Last Admin: 11/04/24 12:14 Dose: 15 mg Documented By: HELEN Oxybutynin (Oxybutynin 5 Mg Tablet) 5 mg PO NOW ONE Stop: 11/04/24 18:26 Oxycodone/Acetaminophen (Oxycodone/Apap 5/325 Prepack) 1 bottle MISC DIRECTED ONE Stop: 11/04/24 15:30 Last Admin: 11/04/24 16:57 Dose: 1 bottle Documented By: KAREEM Phenazopyridine HCl (Phenazopyridine 100 Mg Tablet) 200 mg PO NOW ONE Stop: 11/04/24 18:25 Tamsulosin HCl (Tamsulosin 0.4 Mg Capsule) 0.4 mg PO NOW ONE Stop: 11/04/24 13:33 Last Admin: 11/04/24 14:05 Dose: 0.4 mg Documented By: HELEN Reevaluation(s) Reevaluation #1: Reviewed her CT results and labs with the patient, her pain has recurred it was now at 8/10, she was given an additional 15 mg of Toradol intravenously and I have added additional Dilaudid 1 mg. She remains afebrile with normal vital signs. Reevaluation #2: Urinalysis finally obtain did show some blood, no findings to suggest infection. Pain recurred it was now an 8/10, additional Dilaudid, and IV lidocaine as well as Flomax given. Reevaluation #3: No significant improvement, pain remains a 7/10, consultation with Urology obtained. Consultations Consultation #1: Consulted Urology, Dr. Gleason at 1455hrs. Plans to call the OR. (last PO intake YESTERDAY lunch time, vomited at 10am today). Remains NPO. Vital Signs Vital signs: Vital Signs - 8 hr 11/04/24 10:37 11/04/24 10:51 11/04/24 10:54 Temperature 98.5 F Pulse Rate 64 63 Respiratory Rate 18 18 Blood Pressure 131/85 131/85 Pulse Oximetry 92 92 Oxygen Delivery Method Room Air Room Air Oxygen Flow Rate 11/04/24 11:00 11/04/24 11:00 11/04/24 11:30 Temperature Pulse Rate 71 62 Respiratory Rate 18 18 Blood Pressure 136/74 136/74 Pulse Oximetry 98 100 Oxygen Delivery Method Nasal Cannula Room Air Oxygen Flow Rate 2 11/04/24 11:45 11/04/24 11:45 11/04/24 12:00 Temperature Pulse Rate 68 Respiratory Rate 18 Blood Pressure 125/75 129/82 Pulse Oximetry 98 Oxygen Delivery Method Oxygen Flow Rate 11/04/24 12:00 11/04/24 12:30 11/04/24 12:30 Temperature Pulse Rate 59 L 74 Respiratory Rate 18 Blood Pressure 141/69 H Pulse Oximetry 100 97 Oxygen Delivery Method Oxygen Flow Rate 11/04/24 12:56 11/04/24 12:56 11/04/24 13:00 Temperature Pulse Rate 61 Respiratory Rate 18 Blood Pressure 140/67 130/64 Pulse Oximetry 98 Oxygen Delivery Method Oxygen Flow Rate 11/04/24 13:00 11/04/24 13:30 11/04/24 13:30 Temperature Pulse Rate 67 72 Respiratory Rate Blood Pressure 88/62 L Pulse Oximetry 96 95 Oxygen Delivery Method Oxygen Flow Rate 11/04/24 13:45 11/04/24 13:45 11/04/24 14:00 Temperature Pulse Rate 73 Respiratory Rate Blood Pressure 117/61 112/59 L Pulse Oximetry 95 Oxygen Delivery Method Oxygen Flow Rate 11/04/24 14:00 11/04/24 14:30 11/04/24 14:30 Temperature Pulse Rate 70 77 Respiratory Rate Blood Pressure 107/65 Pulse Oximetry 96 96 Oxygen Delivery Method Oxygen Flow Rate 11/04/24 15:00 11/04/24 15:00 11/04/24 15:30 Temperature Pulse Rate 74 Respiratory Rate 18 Blood Pressure 117/63 110/62 Pulse Oximetry 96 Oxygen Delivery Method Room Air Oxygen Flow Rate 11/04/24 15:30 11/04/24 16:00 11/04/24 16:00 Temperature Pulse Rate 67 66 Respiratory Rate 18 18 Blood Pressure 117/60 Pulse Oximetry 98 98 Oxygen Delivery Method Room Air Room Air Oxygen Flow Rate 11/04/24 16:49 Temperature 97.8 F Pulse Rate 69 Respiratory Rate 18 Blood Pressure 111/68 Pulse Oximetry 94 Oxygen Delivery Method Room Air Oxygen Flow Rate <Mera Mazariegos, - Last Filed: 11/04/24 18:32> Orders Ordered: ED Orders 11/04/24 11:12 CT kidney ureter bladder (KUB) Stat 11/04/24 11:17 EKG-12 Lead Stat 11/04/24 11:52 CBC Auto Diff [Complete Blood Count AUTO DIFF] Stat CMP [Comprehensive Metabolic Panel] Stat Lipase Stat 11/04/24 12:46 Urinalysis and Microscopic Stat Acetaminophen (Acetaminophen 325 Mg Tablet) 975 mg PO Q6H PRN PRN Reason: Pain, Mild (1-3) Hydromorphone HCl (Hydromorphone 1 Mg Inj) 0 mg IV Q5MIN PRN PRN Reason: Pain, Moderate (4-6) Hydromorphone HCl (Hydromorphone 1 Mg Inj) 0 mg IV Q5MIN PRN PRN Reason: Pain, Severe (7-10) Hydromorphone HCl (Hydromorphone 1 Mg Inj) 0.5 mg IV Q2H PRN PRN Reason: Breakthrough Pain Hydroxyzine HCl (Hydroxyzine 50 Mg/Ml Inj) 25 mg IM NOW PRN PRN Reason: Pain, Mild (1-3) Lactated Ringer's (Lactated Ringers) 1,000 mls @ 42 mls/hr IV NOW ONE Stop: 11/05/24 16:30 Last Admin: 11/04/24 16:42 Dose: 42 mls/hr Documented By: HF Ondansetron HCl (Ondansetron 4 Mg/2 Ml Inj) 4 mg IV NOW PRN PRN Reason: Nausea And Vomiting Ondansetron HCl (Ondansetron 4 Mg/2 Ml Inj) 4 mg IV Q4H PRN PRN Reason: Nausea And Vomiting Oxycodone HCl (Oxycodone Ir 5 Mg Tablet) 5 mg PO PACUNOW PRN PRN Reason: Mild or moderate pain Oxycodone HCl (Oxycodone Ir 5 Mg Tablet) 5 mg PO Q4H PRN PRN Reason: Pain, Moderate (4-6) Oxycodone HCl (Oxycodone Ir 10 Mg Tablet) 10 mg PO Q4HR PRN PRN Reason: Pain, Severe (7-10) Discontinued Medications Hydromorphone HCl (Hydromorphone 1 Mg Inj) 1 mg IV NOW ONE Stop: 11/04/24 12:33 Last Admin: 11/04/24 12:50 Dose: 1 mg Documented By: HELEN Lidocaine HCl 8 ml/ Sodium (Chloride) 58 mls @ 348 mls/hr IV NOW ONE Stop: 11/04/24 13:33 Last Infusion: 11/04/24 14:20 Dose: Infused Documented By: Admin: 11/04/24 14:05 Dose: 348 mls/hr Documented By: HELEN Ketorolac Tromethamine (Ketorolac 30 Mg/Ml Vial) 15 mg IV NOW ONE Stop: 11/04/24 12:06 Last Admin: 11/04/24 12:14 Dose: 15 mg Documented By: HELEN Oxybutynin (Oxybutynin 5 Mg Tablet) 5 mg PO NOW ONE Stop: 11/04/24 18:26 Oxycodone/Acetaminophen (Oxycodone/Apap 5/325 Prepack) 1 bottle MISC DIRECTED ONE Stop: 11/04/24 15:30 Last Admin: 11/04/24 16:57 Dose: 1 bottle Documented By: KAREEM Phenazopyridine HCl (Phenazopyridine 100 Mg Tablet) 200 mg PO NOW ONE Stop: 11/04/24 18:25 Tamsulosin HCl (Tamsulosin 0.4 Mg Capsule) 0.4 mg PO NOW ONE Stop: 11/04/24 13:33 Last Admin: 11/04/24 14:05 Dose: 0.4 mg Documented By: HELEN Vital Signs Vital signs: Vital Signs - 8 hr 11/04/24 10:37 11/04/24 10:51 11/04/24 10:54 Temperature 98.5 F Pulse Rate 64 63 Respiratory Rate 18 18 Blood Pressure 131/85 131/85 Pulse Oximetry 92 92 Oxygen Delivery Method Room Air Room Air Oxygen Flow Rate 11/04/24 11:00 11/04/24 11:00 11/04/24 11:30 Temperature Pulse Rate 71 62 Respiratory Rate 18 18 Blood Pressure 136/74 136/74 Pulse Oximetry 98 100 Oxygen Delivery Method Nasal Cannula Room Air Oxygen Flow Rate 2 11/04/24 11:45 11/04/24 11:45 11/04/24 12:00 Temperature Pulse Rate 68 Respiratory Rate 18 Blood Pressure 125/75 129/82 Pulse Oximetry 98 Oxygen Delivery Method Oxygen Flow Rate 11/04/24 12:00 11/04/24 12:30 11/04/24 12:30 Temperature Pulse Rate 59 L 74 Respiratory Rate 18 Blood Pressure 141/69 H Pulse Oximetry 100 97 Oxygen Delivery Method Oxygen Flow Rate 11/04/24 12:56 11/04/24 12:56 11/04/24 13:00 Temperature Pulse Rate 61 Respiratory Rate 18 Blood Pressure 140/67 130/64 Pulse Oximetry 98 Oxygen Delivery Method Oxygen Flow Rate 11/04/24 13:00 11/04/24 13:30 11/04/24 13:30 Temperature Pulse Rate 67 72 Respiratory Rate Blood Pressure 88/62 L Pulse Oximetry 96 95 Oxygen Delivery Method Oxygen Flow Rate 11/04/24 13:45 11/04/24 13:45 11/04/24 14:00 Temperature Pulse Rate 73 Respiratory Rate Blood Pressure 117/61 112/59 L Pulse Oximetry 95 Oxygen Delivery Method Oxygen Flow Rate 11/04/24 14:00 11/04/24 14:30 11/04/24 14:30 Temperature Pulse Rate 70 77 Respiratory Rate Blood Pressure 107/65 Pulse Oximetry 96 96 Oxygen Delivery Method Oxygen Flow Rate 11/04/24 15:00 11/04/24 15:00 11/04/24 15:30 Temperature Pulse Rate 74 Respiratory Rate 18 Blood Pressure 117/63 110/62 Pulse Oximetry 96 Oxygen Delivery Method Room Air Oxygen Flow Rate 11/04/24 15:30 11/04/24 16:00 11/04/24 16:00 Temperature Pulse Rate 67 66 Respiratory Rate 18 18 Blood Pressure 117/60 Pulse Oximetry 98 98 Oxygen Delivery Method Room Air Room Air Oxygen Flow Rate 11/04/24 16:49 Temperature 97.8 F Pulse Rate 69 Respiratory Rate 18 Blood Pressure 111/68 Pulse Oximetry 94 Oxygen Delivery Method Room Air Oxygen Flow Rate MDM - Abdominal Pain <Agnes Mercado PA-C - Last Filed: 11/04/24 17:11> Lab Data Lab results narrative: Mild elevation in her white count of 12.0, urinalysis did show microscopic blood, no clinical findings to suggest infection. 11/04/24 11:52 11/04/24 11:52 Labs: Lab Results 11/04/24 11/04/24 Range/Units 11:52 12:46 WBC 12.0 H (4.5-11.0) X10^3/uL RBC 4.62 (4.0-5.2) X10^6/uL Hgb 14.8 (12.0-16.0) g/dL Hct 44.2 (36-46) % MCV 95.7 (80-100) fL MCH 32.1 (26-34) PG MCHC 33.6 (30-36) % RDW 12.8 (11.6-14.8) % Plt Count 249 (150-400) X10^3/uL Neut % (Auto) 82.4 H (50-75) % Lymph % (Auto) 11.4 L (25-40) % Wright % (Auto) 5.0 (3-14) % Eos % (Auto) 0.6 L (2-4) % Baso % (Auto) 0.6 (0-2) % Neut # (Auto) 9900 H (0339-5396) /uL Lymph # (Auto) 1400 (8379-9951) /uL Wright # (Auto) 600 (0-900) /uL Eos # (Auto) 100 (0-450) /uL Baso # (Auto) 100 (0-100) /uL Sodium 140 (137-145) mmol/L Potassium 4.2 (3.4-5.1) mmol/L Chloride 107 (98-107) mmol/L Carbon Dioxide 26 (22-32) mmol/L BUN 16 (7-17) mg/dL Creatinine 0.87 (0.52-1.04) mg/dL Estimated GFR > 60 (>60) mL/min BUN/Creatinine Ratio 18.4 (6-22) Glucose 102 H (70-100) mg/dL Calcium 8.8 (8.4-10.2) mg/dL Total Bilirubin 0.6 (0.2-1.3) mg/dL AST 34 (14-36) IU/L ALT 42 H (<35) IU/L Alkaline Phosphatase 84 (38-126) U/L Total Protein 7.2 (6.3-8.2) g/dL Albumin 4.4 (3.5-5.0) g/dL Globulin 2.8 (1.7-4.1) g/dL Albumin/Globulin Ratio 1.6 (1.0-2.8) Lipase 49 (23-300) U/L Urine Color Yellow Urine Appearance Clear Urine pH 5.5 (4.5-8.0) Ur Specific [place] >=1.030 H (1.000-1.035) Urine Protein 1+ H (Negative) Urine Glucose (UA) Negative (Negative) g/dL Urine Ketones Negative (NEGATIVE) Urine Occult Blood 3+ H (Negative) Urine Nitrate Negative (Negative) Urine Bilirubin Negative (NEGATIVE) Urine Urobilinogen 0.2 (0.2) E.U./dL Ur Leukocyte Esterase Negative (NEGATIVE) Urine RBC 30-100/hpf H (0-5/HPF) Urine WBC 1-5/hpf (0-5/HPF) Ur Squamous Epith Cells 1-5 /hpf (0-5/HPF) Urine Bacteria None seen (None) Ur Culture Indicated? Cult not indicated Vol Urine Centrifuged 10ml (spun) Imaging Data CT - KUB: My Impression: Deferred to radiologist's impression below. Radiologist's Impression: PROCEDURE: CT KIDNEY URETER BLADDER (KUB) INDICATIONS: right flank pain, hx stones on previous imaging TECHNIQUE: Axial sections were acquired from the lung bases to the pubic symphysis. Coronal and sagittal reformats were performed. For radiation dose reduction, the following was used: automated exposure control, adjustment of mA and/or kV according to patient size. COMPARISON: [facility], CT, CT ABDOMEN PELVIS W CON, 06/23/2024, 17:23. FINDINGS: Image quality: Diagnostic. Lower Chest: No significant findings. URINARY: Right Kidney: 4 mm nonobstructing lower pole stone. [id number] hydronephrosis. Right Ureter: A 3 mm stone has either just passed from the ureterovesical junction into the bladder or is about to completely passed into the bladder. There is mild right hydroureter. Left Kidney: Punctate nonobstructing stones. No hydronephrosis. Left Ureter: No hydroureter. Bladder: Normal wall thickness. A 3 mm right base of bladder stone is either completely in the bladder or is about to completely passed into the bladder from the ureterovesical junction. ABDOMEN: Liver: No contour-deforming solid mass. Diffuse hepatic steatosis with prominence of the left lobe of the liver. Gallbladder: No radiopaque gallstones or wall thickening. Biliary ducts: No biliary dilation. Pancreas: No ductal dilation. Spleen: Size is within normal limits. Adrenal Glands: No adrenal nodules. Stomach and Bowel: Normal colonic caliber, without significant wall thickening. Peritoneum: No abnormal intraperitoneal fluid. No free air. Ventral Wall: No hernia. Abdominal Nodes: No enlarged retroperitoneal or mesenteric lymph nodes. Vessels: Aorta and inferior vena cava are normal in size. PELVIS: Pelvic Organs: Unremarkable. Pelvic Nodes: Unremarkable. Miscellaneous: No inguinal hernias are seen. Bones: Unremarkable. IMPRESSION: 1. A 3 mm stone has either completely passed into the bladder or is about to completely passed into the bladder from the right ureterovesical junction. 2. [id number] right hydronephrosis. 3. Bilateral small or punctate nonobstructing renal parenchymal stones. 4. Advanced diverticulosis without evidence of acute diverticulitis. 5. Diffuse hepatic steatosis with prominence of the left lobe of the liver. Dictated by: Lars Amin M.D. on 11/04/2024 at 11:55 Approved by: Lars Amin M.D. on 11/04/2024 at 11:59 ECG Data Interpretation: Sinus bradycardia with a ventricular rate of 59 beats per minute, normal MS interval, no P or T-wave abnormalities, no ST segment changes, no ectopy. [facility] Narrative Medical decision making narrative: Pleasant 59-year-old female with right flank pain, imaging reveals 4 mm nonobstructing stone on the right as well as a 3 mm at the UVJ. Pain has been controlled with Dilaudid, Toradol, I discussed the case with the ED attending Dr. Petty who then ordered intravenous lidocaine as well as Flomax. Watchful waiting to see if her pain can be managed and potentially discharged as an outpatient versus urology consultation. She does reside on [place] so that is something to consider in terms of logistics and access to emergency care. Reassessed, pain is still significant /10 after additional pain management. Consulted Urology, Dr. Fox at 1455hrs. Plans to call the OR. (last PO intake YESTERDAY lunch time, vomited at 10am today). Remains NPO. Care assumed by Dr. Fox with plans to take to OR tonight. <Mera Mazariegos, - Last Filed: 11/04/24 18:32> Lab Data Labs: Lab Results 11/04/24 11/04/24 Range/Units 11:52 12:46 WBC 12.0 H (4.5-11.0) X10^3/uL RBC 4.62 (4.0-5.2) X10^6/uL Hgb 14.8 (12.0-16.0) g/dL Hct 44.2 (36-46) % MCV 95.7 (80-100) fL MCH 32.1 (26-34) PG MCHC 33.6 (30-36) % RDW 12.8 (11.6-14.8) % Plt Count 249 (150-400) X10^3/uL Neut % (Auto) 82.4 H (50-75) % Lymph % (Auto) 11.4 L (25-40) % Wright % (Auto) 5.0 (3-14) % Eos % (Auto) 0.6 L (2-4) % Baso % (Auto) 0.6 (0-2) % Neut # (Auto) 9900 H (1768-1582) /uL Lymph # (Auto) 1400 (0614-7879) /uL Wright # (Auto) 600 (0-900) /uL Eos # (Auto) 100 (0-450) /uL Baso # (Auto) 100 (0-100) /uL Sodium 140 (137-145) mmol/L Potassium 4.2 (3.4-5.1) mmol/L Chloride 107 (98-107) mmol/L Carbon Dioxide 26 (22-32) mmol/L BUN 16 (7-17) mg/dL Creatinine 0.87 (0.52-1.04) mg/dL Estimated GFR > 60 (>60) mL/min BUN/Creatinine Ratio 18.4 (6-22) Glucose 102 H (70-100) mg/dL Calcium 8.8 (8.4-10.2) mg/dL Total Bilirubin 0.6 (0.2-1.3) mg/dL AST 34 (14-36) IU/L ALT 42 H (<35) IU/L Alkaline Phosphatase 84 (38-126) U/L Total Protein 7.2 (6.3-8.2) g/dL Albumin 4.4 (3.5-5.0) g/dL Globulin 2.8 (1.7-4.1) g/dL Albumin/Globulin Ratio 1.6 (1.0-2.8) Lipase 49 (23-300) U/L Urine Color Yellow Urine Appearance Clear Urine pH 5.5 (4.5-8.0) Ur Specific [place] >=1.030 H (1.000-1.035) Urine Protein 1+ H (Negative) Urine Glucose (UA) Negative (Negative) g/dL Urine Ketones Negative (NEGATIVE) Urine Occult Blood 3+ H (Negative) Urine Nitrate Negative (Negative) Urine Bilirubin Negative (NEGATIVE) Urine Urobilinogen 0.2 (0.2) E.U./dL Ur Leukocyte Esterase Negative (NEGATIVE) Urine RBC 30-100/hpf H (0-5/HPF) Urine WBC 1-5/hpf (0-5/HPF) Ur Squamous Epith Cells 1-5 /hpf (0-5/HPF) Urine Bacteria None seen (None) Ur Culture Indicated? Cult not indicated Vol Urine Centrifuged 10ml (spun) Discharge Plan Departure Clinical Impression: Kidney stone on right side Admit Date/Time: 11/04/24 18:13 Admit Provider: Dennys Fox [facility] Discharge Plan Provider Discharge comment: You have a stent in your right ureter that will keep it open and prevent it from swelling shut. As long as the stent is in place and for up to a few weeks after removal, you may notice blood in your urine to include blood clots. Do not worry, this is normal. As long as you feel that you are able to fully empty your bladder, it is to be expected that you have blood in your urine. I become concerned when you try to urinate and nothing is coming out. This could indicate that the blood clots are too large for you to pass them on your own and you may require placement of a lim catheter. As long as the stent is in place, it may feel like you constantly have to urinate despite the fact that very little urine comes out. This is because the stent is irritating the inside lining of your bladder. You may also notice return of flank pain every time that you urinate, this is caused by urine refluxing up the stent and into your kidney. This pain typically resolves within a few minutes of each urination. Lastly, you may feel that you have bladder spasms while the stent is in place. Women typically describe these as feeling similar to their menstrual cramps, while men describe them as pain in the tip of their penis. This is also normal and to be expected. Your kidney stone was sent for chemical analysis. We will discuss the results of this analysis at your postoperative appointment in 3 months. We will also have you get a renal bladder ultrasound performed to ensure that there is no residual swelling within your kidney from the procedure. This should be completed prior to your follow-up appointment as well. You can expect to have burning with urination for the next few days, this is normal and to be expected after your procedure. You may purchase an OTC medication (Phenazopyridine or Azo), a medication that can help with this burning and discomfort. This medication may change the color of your urine orange, however, this will resolve once you stop taking the medication. Please sit on the toilet and gently remove your right ureteral stent by pulling on the strings. Please remove your stent on the morning of 10 Nov 2024. I suggest that you take one of your pain pills or an NSAID roughly one hour prior to removal of this stent. Should you have any questions or concerns after hours, please call the Steward/[employer]wardess [employer]ist Class for [facility] at [phone]. They can relay any questions or concerns you have to the physician on-call. Diet/Activity/Treatments Diet: Diet as Tolerated Activity: You may resume your normal activity level on the morning of 05 Nov 2024. ED Sign-out <Mera Mazariegos, DO - Last Filed: 11/04/24 18:32> Cosign ED Attending Jett Attestation: I was immediately available in the department for consultation. Case was discussed with myself, patient is still quite uncomfortable after Toradol and narcotic pain medication we will give a dose of Flomax as well as lidocaine IV. Labs and urine were reviewed as well as CT imaging suspect stone still at the junction she was still painful. Does not appear to be infected or have septic kidney stone. Plan to consult with Urology for possible stone removal or stent if patient is having persistent pain. Dr. Fox, saw patient in department. Plan for OR today.
--- NOTE | 2024-11-04 11:12 | DI.CT.S_ITS ---
PROCEDURE: CT KIDNEY URETER BLADDER (KUB) INDICATIONS: right flank pain, hx stones on previous imaging TECHNIQUE: Axial sections were acquired from the lung bases to the pubic symphysis. Coronal and sagittal reformats were performed. For radiation dose reduction, the following was used: automated exposure control, adjustment of mA and/or kV according to patient size. COMPARISON: [facility], CT, CT ABDOMEN PELVIS W CON, 06/23/2024, 17:23. FINDINGS: Image quality: Diagnostic. Lower Chest: No significant findings. URINARY: Right Kidney: 4 mm nonobstructing lower pole stone. [id number] hydronephrosis. Right Ureter: A 3 mm stone has either just passed from the ureterovesical junction into the bladder or is about to completely passed into the bladder. There is mild right hydroureter. Left Kidney: Punctate nonobstructing stones. No hydronephrosis. Left Ureter: No hydroureter. Bladder: Normal wall thickness. A 3 mm right base of bladder stone is either completely in the bladder or is about to completely passed into the bladder from the ureterovesical junction. ABDOMEN: Liver: No contour-deforming solid mass. Diffuse hepatic steatosis with prominence of the left lobe of the liver. Gallbladder: No radiopaque gallstones or wall thickening. Biliary ducts: No biliary dilation. Pancreas: No ductal dilation. Spleen: Size is within normal limits. Adrenal Glands: No adrenal nodules. Stomach and Bowel: Normal colonic caliber, without significant wall thickening. Peritoneum: No abnormal intraperitoneal fluid. No free air. Ventral Wall: No hernia. Abdominal Nodes: No enlarged retroperitoneal or mesenteric lymph nodes. Vessels: Aorta and inferior vena cava are normal in size. PELVIS: Pelvic Organs: Unremarkable. Pelvic Nodes: Unremarkable. Miscellaneous: No inguinal hernias are seen. Bones: Unremarkable. IMPRESSION: 1. A 3 mm stone has either completely passed into the bladder or is about to completely passed into the bladder from the right ureterovesical junction. 2. Kqno-[id number] right hydronephrosis. 3. Bilateral small or punctate nonobstructing renal parenchymal stones. 4. Advanced diverticulosis without evidence of acute diverticulitis. 5. Diffuse hepatic steatosis with prominence of the left lobe of the liver. Dictated by: Lars Amin M.D. on 11/04/2024 at 11:55 Approved by: Lars Amin M.D. on 11/04/2024 at 11:59
--- NOTE | 2024-11-04 11:17 | EKG_ITS ---
[facility] [address] [address] Test Date: 2024-11-04 Pat Name: Arabella Dukes Department: [facility] Room: Gender: Female Director Of Security: : 1965 Requested By: Order Number: [id number] Reading MD: José Manuel Walker Measurements Intervals [place] Rate: 59 P: 46 DE: 160 QRS: -10 QRSD: 90 T: 13 QT: 434 QTc: 429 Interpretive Statements Sinus bradycardia Electronically Signed On 11-04-2024 15:21:00 PST by José Manuel Wakler
[2024-11-04 12:03] LABS: Add Manual Diff / Slide Review NO; Basophils Absolute Auto 100 /uL (0-100); Basophils Percent Auto 0.6 % (0-2); Eosinophils Absolute Auto 100 /uL (0-450); Eosinophils Percent Auto 0.6 % (2-4); Hematocrit 44.2 % (36-46); Hemoglobin 14.8 g/dL (12.0-16.0); Lymphocytes Absolute Auto 1400 /uL (1100-4500); Lymphocytes Percent Auto 11.4 % (25-40); Mean Corpuscular HGB Conc 33.6 % (30-36); Mean Corpuscular Hemoglobin 32.1 PG (26-34); Mean Corpuscular Volume 95.7 fL (80-100); Monocytes Absolute Auto 600 /uL (0-900); Neutrophils Absolute Auto 9900 /uL (1500-7000); Neutrophils Percent Auto 82.4 % (50-75); Platelet Count 249 X10^3/uL (150-400); Red Blood Cell Count 4.62 X10^6/uL (4.0-5.2); Red Cell Distribution Width 12.8 % (11.6-14.8)
[2024-11-04 12:11] LABS: Alanine Aminotransferase 42 IU/L (<35); Albumin 4.4 g/dL (3.5-5.0); Albumin Globulin Ratio 1.6 (1.0-2.8); Alkaline Phosphatase 84 U/L (38-126); Aspartate Aminotransferase 34 IU/L (14-36); BUN Creatinine Ratio 18.4 (6-22); Bilirubin Total 0.6 mg/dL (0.2-1.3); Blood Urea Nitrogen 16 mg/dL (7-17); Calcium 8.8 mg/dL (8.4-10.2); Carbon Dioxide 26 mmol/L (22-32); Chloride 107 mmol/L (98-107); Estimated Glomerular Filt Rate > 60 mL/min (>60); Globulin 2.8 g/dL (1.7-4.1); Glucose 102 mg/dL (70-100); HEMOLYSIS < 15 (0-50); Lipase 49 U/L (23-300); Potassium 4.2 mmol/L (3.4-5.1); Sodium 140 mmol/L (137-145); Total Protein 7.2 g/dL (6.3-8.2)
[2024-11-04] MEDS: KETOROLAC 30 MG/ML VIAL 15 MG IV (12:14)
[2024-11-04] MEDS: HYDROMORPHONE 1 MG INJ IV (12:50)
[2024-11-04 13:09] LABS: Appearance Urine UA CLEAR; Bilirubin Urine UA NEGATIVE (NEGATIVE); Color Urine UA YELLOW; Glucose Urine UA NEGATIVE (Negative); Ketones Urine UA NEGATIVE (NEGATIVE); Leukocyte Esterase Urine UA NEGATIVE (NEGATIVE); Nitrite Urine UA NEGATIVE (Negative); Occult Blood Urine UA 3+ (Negative); Protein Urine UA 1+ (Negative); Specific Gravity Urine UA >=1.030 (1.000-1.035); Urobilinogen Urine UA 0.2 E.U./dL (0.2)
[2024-11-04 13:12] LABS: pH Urine UA 5.5 (4.5-8.0)
[2024-11-04 13:24] LABS: Bacteria Urine None Seen; Culture Indicated Urine Cult Not Indicated; RBC Urine 30-100/HPF (0-5/HPF); Squamous Epithelial Cell Urine 1-5 /HPF (0-5/HPF); Urine Volume 10mL (spun); WBC Urine 1-5/HPF (0-5/HPF)
[2024-11-04] MEDS: TAMSULOSIN 0.4 MG CAPSULE PO (14:05)
[2024-11-04] MEDS: LIDOCAINE 2% (PF) 8 ML in SODIUM CHLORIDE 0.9% 50 ML 348 ML IV (14:05)
--- NOTE | 2024-11-04 15:37 | PM.CN.IH.1 ---
History of Present Illness Consult details Date Patient Seen: 11/04/24 Time Patient Seen: 15:00 Chief complaint: SUSPECT KIDNEY STONE, R FLANK PAIN, BLOOD IN URINE Narrative: 59 y/o F w/ h/o nephrolithiasis was airlifted from [place] for management of severe right flank pain w/ nausea and vomiting. Briefly, her severe pain started this morning and would radiate into her right lower abdominal quadrant. As her pain was unable to be controlled on [place], she was airlifted to ER for further evaluation and management. This was notable for a WBC of 12, sCr of 0.87, an unremarkable UA and a NCCT Abd/Pel that noted a 3mm right UVJ calculus w/ resultant upstream mild to moderate right hydroureteronephrosis and a 4mm right lower pole calculus. Unfortunately, she continues to suffer from severe right flank pain that has been unresponsive to all medications in the ER. Meds Home Medications and Allergies Home Medications Medication Instructions Recorded Confirmed Type metoprolol succinate 50 mg 50 mg PO QDAY ##30 02/27/17 06/23/24 Rx tablet,extended release 24 hr anastrozole 1 mg tablet 1 mg PO DAILY 04/19/21 06/23/24 History gabapentin 100 mg capsule 300 mg PO TID 04/19/21 06/23/24 History pantoprazole 40 mg tablet,delayed 40 mg PO BEDTIME 04/19/21 06/23/24 History release prochlorperazine maleate 10 mg 5 mg PO TID 04/19/21 06/23/24 History tablet rivaroxaban 20 mg tablet (Xarelto) 20 mg PO BEDTIME 04/19/21 06/23/24 History lisinopril 10 mg tablet 40 mg PO QDAY 10/21/23 06/23/24 History ondansetron 4 mg disintegrating 4 mg PO Q8H PRN Sleep 06/23/24 06/23/24 History tablet trazodone 50 mg tablet 150 mg PO BEDTIME 06/23/24 06/24/24 History amoxicillin 875 mg-potassium 1 tab PO BID #28 tabs 06/25/24 Rx clavulanate 125 mg tablet oxycodone 5 mg tablet 5 mg PO Q6H PRN pain #14 tabs 06/25/24 Rx metoclopramide HCl 10 mg tablet 10 mg PO Q6H PRN nausea and 09/13/24 Rx (Reglan) vomiting #20 tabs Allergies Allergy/AdvReac Type Severity Reaction Status Date / Time adhesive tape AdvReac Rash Verified 03/27/24 14:18 Review of Systems Review of Systems Narrative: CONSTITUTIONAL: Denies weight loss, fevers, chills. HEENT: Denies change in vision, hearing. RESP: Denies SOB, cough. CV: Denies palpations, CP. GI: Denies abdominal pain, nausea, vomiting, diarrhea. : Denies dysuria, inability to void. MSK: Denies myalgia, joint pain. SKIN: Denies rash, pruritus. NEURO: Denies headache, syncope. PSYCH: Denies recent change in mood, anxiety, depression. Exam Vital Signs (past 8 hours): - 11/04/24 10:37 11/04/24 10:51 11/04/24 10:54 Temperature 98.5 F Pulse Rate 64 63 Respiratory Rate 18 18 Blood Pressure 131/85 131/85 Pulse Oximetry 92 92 Oxygen Delivery Method Room Air Room Air Oxygen Flow Rate 11/04/24 11:00 11/04/24 11:00 11/04/24 11:30 Temperature Pulse Rate 71 62 Respiratory Rate 18 18 Blood Pressure 136/74 136/74 Pulse Oximetry 98 100 Oxygen Delivery Method Nasal Cannula Room Air Oxygen Flow Rate 2 11/04/24 11:45 11/04/24 11:45 11/04/24 12:00 Temperature Pulse Rate 68 Respiratory Rate 18 Blood Pressure 125/75 129/82 Pulse Oximetry 98 Oxygen Delivery Method Oxygen Flow Rate 11/04/24 12:00 11/04/24 12:30 11/04/24 12:30 Temperature Pulse Rate 59 L 74 Respiratory Rate 18 Blood Pressure 141/69 H Pulse Oximetry 100 97 Oxygen Delivery Method Oxygen Flow Rate 11/04/24 12:56 11/04/24 12:56 11/04/24 13:00 Temperature Pulse Rate 61 Respiratory Rate 18 Blood Pressure 140/67 130/64 Pulse Oximetry 98 Oxygen Delivery Method Oxygen Flow Rate 11/04/24 13:00 11/04/24 13:30 11/04/24 13:30 Temperature Pulse Rate 67 72 Respiratory Rate Blood Pressure 88/62 L Pulse Oximetry 96 95 Oxygen Delivery Method Oxygen Flow Rate 11/04/24 13:45 11/04/24 13:45 11/04/24 14:00 Temperature Pulse Rate 73 Respiratory Rate Blood Pressure 117/61 112/59 L Pulse Oximetry 95 Oxygen Delivery Method Oxygen Flow Rate 11/04/24 14:00 11/04/24 14:30 11/04/24 14:30 Temperature Pulse Rate 70 77 Respiratory Rate Blood Pressure 107/65 Pulse Oximetry 96 96 Oxygen Delivery Method Oxygen Flow Rate Oxygen Delivery Method Room Air Oxygen Flow Rate 2 Narrative Exam Narrative: GEN: Alert and oriented X3. No acute distress. Well-nourished. EYES: PERRLA, EOMI. HENT: Moist mucus membranes, no scleral icterus, normal neck ROM. RESP: Unlabored breathing, equal rise and fall of chest bilaterally, no cyanosis appreciated. CV: No peripheral edema, unremarkable heart rate. ABD: Soft, non-tender, non-distended, no palpable masses. EXT: No edema, clubbing or cyanosis. SKIN: No rashes or lesions. NEURO: No focal neurologic deficits, CN II-XII grossly intact. PSYCH: Cooperative, appropriate mood and affect. Objective Labs 11/04/24 11:52 11/04/24 11:52 Labs: Laboratory Results - last 24 hr 11/04/24 11/04/24 11:52 12:46 WBC 12.0 H RBC 4.62 Hgb 14.8 Hct 44.2 MCV 95.7 MCH 32.1 MCHC 33.6 RDW 12.8 Plt Count 249 Neut % (Auto) 82.4 H Lymph % (Auto) 11.4 L [place] % (Auto) 5.0 Eos % (Auto) 0.6 L Baso % (Auto) 0.6 Neut # (Auto) 9900 H Lymph # (Auto) 1400 [place] # (Auto) 600 Eos # (Auto) 100 Baso # (Auto) 100 Sodium 140 Potassium 4.2 Chloride 107 Carbon Dioxide 26 BUN 16 Creatinine 0.87 Estimated GFR > 60 BUN/Creatinine Ratio 18.4 Glucose 102 H Calcium 8.8 Total Bilirubin 0.6 AST 34 ALT 42 H Alkaline Phosphatase 84 Total Protein 7.2 Albumin 4.4 Globulin 2.8 Albumin/Globulin Ratio 1.6 Lipase 49 Urine Color Yellow Urine Appearance Clear Urine pH 5.5 Ur Specific [place] >=1.030 H Urine Protein 1+ H Urine Glucose (UA) Negative Urine Ketones Negative Urine Occult Blood 3+ H Urine Nitrate Negative Urine Bilirubin Negative Urine Urobilinogen 0.2 Ur Leukocyte Esterase Negative Urine RBC 30-100/hpf H Urine WBC 1-5/hpf Ur Squamous Epith Cells 1-5 /hpf Urine Bacteria None seen Ur Culture Indicated? 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 (03/05/17) Essential hypertension (03/05/17) Old myocardial infarction (12/01/15) Mixed hyperlipidemia (12/01/15) Surgical History Hx of section H/O bilateral mastectomy Family History Mother Alive and well Father Myocardial infarction Son Autism Son Asthma Daughter Asthma Social History household members: family Tobacco & Substance Use Smoking Status: Never smoker alcohol intake: current substance use type: does not use Additional Social History additional social history: 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 Discussed treatment options to include medical expulsion therapy (not recommended due to inability to control her pain at the moment) vs cystoscopy, ureteroscopy, laser lithotripsy with ureteral stent placement. Discussed risks of the procedure to include pain, bleeding, infection, injury to urethra/bladder/ureter, inability to access the ureter requiring discussion with Interventional Radiology regarding a possible ureteral stent placement in an antegrade fashion vs a possible nephroureteral stent and/or percutaneous nephrostomy tube, urinary tract infection, inability to remove all of the stone in one setting, need for emergent open repair of bladder and/or ureter, need for multiple ureteroscopic interventions necessary to render the patient stone free. She indicated understanding and all of her questions were answered to her satisfaction. Informed consent was obtained. Time-Based Coding :: [TOTAL MINUTES] spent with patient and on the chart (including review of chart, obtaining history, exam, reviewing outside data, placing orders, documenting exam and treatment plan, and counseling patient) on [DATE]. PROFEE Charge Codes Inpatient or Observation consultation: [id number]
--- NOTE | 2024-11-04 16:25 | PC.NURSE ---
patients son Santino Acuna on the way from [facility] via [employer]. His contact information is Called and notified Santino via phone his mom is getting ready to go to OR and will be unable to answer her phone. directed him to park at ER entrance and come inside so we can direct him to the OR waiting area. Santino verbalized understanding.
[2024-11-04] MEDS: LACTATED RINGERS 1,000 ML 42 ML IV (16:42)
[2024-11-04] MEDS: OXYCODONE/APAP 5/325 PREPACK 1 BOTTLE MISC (16:57)
[2024-11-04] MEDS: CEFAZOLIN 2 GM/100 ML PREMIX 100 ML IV (17:50)
[2024-11-04] MEDS: iopamidoL 30 ML VIAL 12.5 ML INTRAURETH (18:00)
--- NOTE | 2024-11-04 18:28 | PM.OP.1 ---
Procedure & Clinicians Procedure: Cystoscopy Right ureteroscopy, laser lithotripsy Right retrograde ureteropyelogram Right ureteral stent placement Intraoperative interpretation of fluoroscopic images, total time < 1 hour Same procedure as scheduled: Yes Indications: 59 y/o F noted to have a 3mm right UVJ calculus w/ resultant upstream mild to moderate hydroureteronephrosis in the setting of poor pain control. Discussed treatment options to include medical expulsion therapy (not recommended due to inability to control her pain at the moment) vs cystoscopy, ureteroscopy, laser lithotripsy with ureteral stent placement. Surgeon: Dennys Fox Click Yes if Unassisted: Yes Anesthesia Type: General Operative Notes Findings: Interval passage of right UVJ calculus, moderate sized right mid pole calculus Closure Type: not applicable Specimen(s): other (right kidney stone) Estimated Blood Loss (mL): 2 Blood products transfused: none Procedure in detail: Procedures: 1) Cystoscopy 2) Right retrograde ureteropyelogram 3) Right ureteroscopy, laser lithotripsy 4) Right ureteral stent placement 5) Intraoperative interpretation of fluoroscopic images, < 1 hour, all images saved to PACS Indication: Patient was identified in the preoperative holding area and consent confirmed. She was then brought to the operating room where general anesthesia was induced.? She was placed in the low lithotomy position. She was then prepped and draped in the usual sterile fashion. A surgical timeout was conducted and all were in agreement. ?Access to the bladder was obtained via a 30 degree cystoscope.? Complete cystoscopy was then performed and no concerning bladder masses or lesions were appreciated.? Bilateral ureteral orifices were easily identified and noted to be orthotopic in nature.? The right ureteral orifice was easily cannulated using a 0.035 sensor tip ureteral guidewire. This was advanced up into the right renal collecting system and the cystoscope was removed. A semirigid ureteroscope was then advanced alongside the aforementioned guidewire and into the right distal ureter and eventually into the right proximal ureter. No urolith was appreciated within her right ureter. The semirigid ureteroscope was then removed and a 12/14Fr ureteral access sheath was then advanced over the ureteral guidewire and into the proximal right ureter.? The ureteral guidewire and inner obturator were then removed.? The flexible ureteroscope was then advanced through the ureteral access sheath and into the right renal collecting system. Complete pyeloscopy was then performed and a moderate sized calculus was noted within the right midpole calyx, no other uroliths were appreciated.? This stone was then removed via the stone basket and sent for chemical analysis.? A retrograde pyelogram was then performed which noted no contrast extravasation.? The ureteral guidewire was then readvanced through the ureteroscope and into the right renal pelvis.? The ureter was then directly visualized upon removal of the ureteroscope and ureteral access sheath and noted to be stone free.? The cystoscope was then backloaded over the ureteral guidewire and advanced into the bladder.? A 6Fr multi-length JJ ureteral stent with strings was then advanced over the ureteral guidewire.? Upon removal of the guidewire, a good curl was noted within the right renal pelvis upon fluoroscopy and visually within the bladder.? The bladder was then drained and the cystoscope was removed.? Anesthesia was reversed, she was extubated in the OR and transferred to the PACU in stable condition for recovery. Complications: none Post-operative Condition: stable Disposition: PACU Plan for aftercare: Discharge home from PACU. Will remove her right ureteral stent on the morning of 10 Nov 2024. Will have a RBUS performed in 8 weeks. Will return to Urology clinic in 12 weeks for a review of her stone analysis and the aforementioned RBUS.
--- NOTE | 2024-11-04 18:30 | SUR.OPER ---
Lithotomy on padded OR bed, head on pillow, arms secured on padded arm boards at <90 degrees abduction. Legs secured in padded yellow fins stirrups.
[2024-11-04] MEDS: OXYBUTYNIN 5 MG TABLET PO (18:34)
[2024-11-04] MEDS: OXYCODONE IR 5 MG TABLET PO (18:34)
[2024-11-04] MEDS: PHENAZOPYRIDINE 100 MG TABLET 200 MG PO (18:34)
[2024-11-12 13:46] LABS: Ca oxalate monohydr 100 % (.); Size 4x3 mm (.); Stone Analysis Source Ureter (.)
== END 2024-11-04 19:15 | disposition home or self-care (01) ==
LOC: ED 16:10 → AC 18:15
PROVIDERS: Admitting Provider Urology; Emergency Provider Physician Assistant Medical; PCP Family Medicine; Referring Provider Physician Assistant Medical; Visit Provider Urology
PROC: 0TF68ZZ Fragmentation in Right Ureter, Via Natural or Artificial Opening Endoscopic (ICD-10-PCS; CPT 52353; principal; 2024-11-04 18:00)
DX: N13.2 Hydronephrosis with renal and ureteral calculous obstruction (principal); I10 Essential (primary) hypertension; C50.912 Malignant neoplasm of unspecified site of left female breast; I30.0 Acute nonspecific idiopathic pericarditis; I25.2 Old myocardial infarction; Z86.718 Personal history of other venous thrombosis and embolism; Z79.01 Long term (current) use of anticoagulants
CPT/HCPCS: 52356; 36415; 74018; 74176; 76000; 80053; 81001; 82365; 83690; 85025; 93005; 96374; 96375; 99222; 99285; G0378; C2617; J0690; J1100; J1171; J1885; J2704; Q9967

== ENCOUNTER → 2025-02-14 07:37 | Outpatient (CLI) | payer OTHER, SELFPAY ==
[2024-06-23 21:11] VITALS: BMI 37.2
--- NOTE | 2025-02-14 07:38 | DI.US.S_ITS ---
PROCEDURE: US RENAL COMPLETE INDICATIONS: 59 y/o F s/p right ureteroscopy, evaluate for hydronephrosis TECHNIQUE: Real-time scanning of the kidneys and bladder, with image documentation. COMPARISON: None. FINDINGS: Kidneys: Kidneys are normal in size. Right kidney measures 11.5 cm long; left kidney measures 10.2 cm long. Right renal cortical thickness is 1.0 cm; left renal cortical thickness is 1.0 cm. Renal cortical echotexture is normal. No hydronephrosis or nephrolithiasis. No suspicious solid mass lesions. Bladder: Pre-void bladder volume is 162 mL. Post-void residual is to mL. Pre-void images demonstrate no intraluminal masses or stones. On pre-void images, the left but not the right ureteral jets are noted with color Doppler interrogation. (Of note, ureteral jets may not be detectable in up to 25% of cases due to insufficient differences in specific gravity between ureteral and bladder urine). Miscellaneous: No free pelvic fluid. IMPRESSION: Right ureteral jet not delineated which is nonspecific as discussed above, may indicate pattern of obstruction however no hydronephrosis. Dictated by: Will Johnson M.D. on 02/14/2025 at 8:28 Approved by: Will Johnson M.D. on 02/14/2025 at 8:32
== END ==
PROVIDERS: PCP Family Medicine; Referring Provider Urology; Visit Provider Urology
DX: N20.1 Calculus of ureter (principal)
CPT/HCPCS: 76770

== ENCOUNTER 2025-02-24 14:02 | Emergency (ER) | payer OTHER, SELFPAY ==
[2024-06-23 21:11] VITALS: BMI 37.2
[2025-02-24] VITALS (13 sets, daily range): BP systolic 121–176; BP diastolic 66–97; PULSE 58–80; RESP 18; TEMP 36.4–37; O2SAT 92–99; BMI 37.2
--- NOTE | 2025-02-24 14:52 | DI.CT.S_ITS ---
PROCEDURE: CT ABDOMEN PELVIS W CON INDICATIONS: left lower quadrant pain, TECHNIQUE: After the administration of intravenous contrast, axial sections acquired from the lung bases to the pubic symphysis. Coronal and sagittal reformats were performed. For radiation dose reduction, the following was used: automated exposure control, adjustment of mA and/or kV according to patient size. COMPARISON: [facility], CT, CT ABDOMEN PELVIS W CON, 06/23/2024, 17:23. FINDINGS: Image quality: Diagnostic. Lower Chest: Mild cardiomegaly. Lung bases are clear. ABDOMEN: Liver: No solid mass. Gallbladder: No radiopaque gallstones or wall thickening. Biliary ducts: No biliary dilation. Pancreas: No ductal dilation. Spleen: Size is within normal limits. Adrenal Glands: No adrenal nodules. Kidneys and Ureters: No hydronephrosis. No solid mass. No complex renal cystic lesion which requires follow up. Punctate nonobstructing left lower pole renal stone. Stomach and Bowel: Normal colonic caliber, without significant wall thickening. Extensive sigmoid diverticulosis. Also, there is extensive left colonic diverticulosis, and generalized diverticulosis is present. There is no convincing CT evidence of acute diverticulitis. However, this does not preclude acute diverticulitis. Normal appendix. Peritoneum: No abnormal intraperitoneal fluid. No free air. Ventral Wall: No significant ventral hernia. Abdominal Nodes: No retroperitoneal or mesenteric adenopathy by size criteria. Vessels: Aorta and inferior vena cava are normal in size. PELVIS: Pelvic Organs: Unremarkable. Bladder: No bladder wall thickening, accounting for underdistention. Pelvic Nodes: No enlarged lymph nodes. Miscellaneous: No inguinal hernias are seen. Bones: No aggressive osseous abnormality. IMPRESSION: 1. Extensive sigmoid diverticulosis. Cannot exclude acute diverticulitis, although there is no convincing evidence acute diverticulitis. 2. Mild cardiomegaly. Dictated by: Lars Amin M.D. on 02/24/2025 at 16:13 Approved by: Lars Amin M.D. on 02/24/2025 at 16:18
--- NOTE | 2025-02-24 15:03 | ED.GENADULT ---
HPI - General Adult General Chief complaint: Abdominal Pain Stated complaint: diverticulitis, abd pain pcp stacy Time Seen by Provider: 02/24/25 14:15 Source: patient Mode of arrival: Ambulatory History of Present Illness HPI narrative: 59-year-old woman with a long history of severe diverticulitis throughout the entire colon, recurrent episodes of diverticulosis has been told that any surgical intervention would mean a complete colectomy. She has been treated for acute diverticulitis for the past 14 days with Augmentin is having continued pain at day 14 and comes in for further evaluation. She is not having fevers, she is able to eat. She is taking MiraLax to avoid constipation has not been having severe diarrhea and no blood in her stools. She does have fairly significant abdominal pain and has been on chronic oxycodone. Related Data Home Medications Medication Instructions Recorded Confirmed anastrozole 1 mg tablet 1 mg PO DAILY 04/19/21 06/23/24 gabapentin 100 mg capsule 300 mg PO TID 04/19/21 06/23/24 pantoprazole 40 mg tablet,delayed 40 mg PO BEDTIME 04/19/21 06/23/24 release prochlorperazine maleate 10 mg 5 mg PO TID 04/19/21 06/23/24 tablet rivaroxaban 20 mg tablet (Xarelto) 20 mg PO BEDTIME 04/19/21 06/23/24 lisinopril 10 mg tablet 40 mg PO QDAY 10/21/23 06/23/24 ondansetron 4 mg disintegrating 4 mg PO Q8H PRN Sleep 06/23/24 06/23/24 tablet trazodone 50 mg tablet 150 mg PO BEDTIME 06/23/24 06/24/24 Previous Rx's Medication Instructions Recorded metoprolol succinate 50 mg 50 mg PO QDAY ##30 02/27/17 tablet,extended release 24 hr amoxicillin 875 mg-potassium 1 tab PO BID #28 tabs 06/25/24 clavulanate 125 mg tablet oxycodone 5 mg tablet 5 mg PO Q6H PRN pain #14 tabs 06/25/24 metoclopramide HCl 10 mg tablet 10 mg PO Q6H PRN nausea and 09/13/24 (Reglan) vomiting #20 tabs amoxicillin 875 mg-potassium 1 tab PO BID #28 tabs 02/24/25 clavulanate 125 mg tablet oxycodone 5 mg tablet 5 - 10 mg (1 - 2 x 5 mg) PO Q4-6H 02/24/25 PRN pain #60 tabs Allergies Allergy/AdvReac Type Severity Reaction Status Date / Time adhesive tape AdvReac Rash Verified 03/27/24 14:18 Review of Systems Review of Systems Narrative: Pertinent positive and negative findings as per HPI Patient History Medical History DVT (deep venous thrombosis) Diverticulitis Invasive carcinoma of breast (03/21/17) Nodule of left lobe of thyroid gland (03/05/17) Essential hypertension (03/05/17) Old myocardial infarction (12/01/15) Mixed hyperlipidemia (12/01/15) Surgical History Hx of section H/O bilateral mastectomy Family History Mother Alive and well Father Myocardial infarction Son Autism Son Asthma Daughter Asthma Social History household members: family Smoking Status: Never smoker alcohol intake: current substance use type: does not use 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 Well-nourished well-developed HEENT: Moist mucous membranes, normal sclera with reactive pupils, Respiratory: Lungs are clear to auscultation, no wheezing no rales no rhonchi. Full and symmetrical air movement Cardiac: Regular rate and rhythm no murmurs no bruits Abdomen: difficulty standing up straight secondary to pain however she is not distended there was mild diffuse pain but no rebound or guarding that is certainly does not have an acute surgical abdomen Skin: Warm and dry, no rashes Neurologic: Grossly neurologically intact with no obvious asymmetries or abnormalities Extremities: No trauma, well perfused Psych: Cooperative, appropriate insight and affect Course Orders Ordered: ED Orders 02/24/25 14:52 CT abdomen pelvis w con Stat 02/24/25 15:10 Complete Blood Count AUTO DIFF Stat Comprehensive Metabolic Panel Stat Lactate (Lactic Acid) Stat Lipase Stat Magnesium Stat 02/24/25 16:50 Urinalysis and Microscopic Stat Hydromorphone HCl (Hydromorphone 0.5 Mg Inj) 0.5 mg IV Q15MIN PRN PRN Reason: Pain, Last Admin: 02/24/25 18:33 Dose: 0.5 mg Documented By: Admin: 02/24/25 15:50 Dose: 0.5 mg Documented By: Admin: 02/24/25 15:26 Dose: 0.5 mg Documented By: ALONDRA Discontinued Medications Sodium Chloride (Normal Saline 0.9%) 1,000 mls @ 1,000 mls/hr IV BOLUS ONE Stop: 02/24/25 15:50 Last Infusion: 02/24/25 17:11 Dose: Infused Documented By: Admin: 02/24/25 15:49 Dose: 1,000 mls/hr Documented By: ALONDRA Ondansetron HCl (Ondansetron 4 Mg/2 Ml Inj) 4 mg IV NOW ONE Stop: 02/24/25 14:52 Last Admin: 02/24/25 15:26 Dose: 4 mg Documented By: ALONDRA Vital Signs Vital signs: Vital Signs - 8 hr 02/24/25 14:33 02/24/25 14:44 02/24/25 14:44 Temperature 97.5 F L Pulse Rate 74 70 Respiratory Rate 18 Blood Pressure 152/86 H 162/86 H Pulse Oximetry 97 98 Oxygen Delivery Method Room Air 02/24/25 15:00 02/24/25 15:32 02/24/25 15:52 Temperature Pulse Rate 58 L 65 67 Respiratory Rate Blood Pressure Pulse Oximetry 99 96 95 Oxygen Delivery Method 02/24/25 15:52 02/24/25 16:00 02/24/25 16:00 Temperature Pulse Rate 74 Respiratory Rate Blood Pressure 172/89 H 157/97 H Pulse Oximetry 94 Oxygen Delivery Method 02/24/25 16:30 02/24/25 16:31 02/24/25 16:31 Temperature Pulse Rate 76 75 Respiratory Rate Blood Pressure 121/66 Pulse Oximetry 93 95 Oxygen Delivery Method 02/24/25 16:58 02/24/25 16:58 02/24/25 17:00 Temperature Pulse Rate 68 68 Respiratory Rate Blood Pressure 176/85 H Pulse Oximetry 95 95 Oxygen Delivery Method 02/24/25 17:30 02/24/25 18:00 Temperature Pulse Rate 77 80 Respiratory Rate Blood Pressure Pulse Oximetry 92 Oxygen Delivery Method Medical Decision Making Lab Data 02/24/25 15:10 02/24/25 15:10 Labs: Lab Results 02/24/25 02/24/25 Range/Units 15:10 16:50 WBC 8.7 (4.5-11.0) X10^3/uL RBC 4.06 (4.0-5.2) X10^6/uL Hgb 13.9 (12.0-16.0) g/dL Hct 39.6 (36-46) % MCV 97.5 (80-100) fL MCH 34.1 H (26-34) PG MCHC 35.0 (30-36) % RDW 12.7 (11.6-14.8) % Plt Count 236 (150-400) X10^3/uL Neut % (Auto) 65.3 (50-75) % Lymph % (Auto) 24.3 L (25-40) % [place] % (Auto) 7.8 (3-14) % Eos % (Auto) 1.9 L (2-4) % Baso % (Auto) 0.7 (0-2) % Neut # (Auto) 5700 (0610-4216) /uL Lymph # (Auto) 2100 (8928-7694) /uL [place] # (Auto) 700 (0-900) /uL Eos # (Auto) 200 (0-450) /uL Baso # (Auto) 100 (0-100) /uL Sodium 138 (137-145) mmol/L Potassium 4.3 (3.4-5.1) mmol/L Chloride 104 (98-107) mmol/L Carbon Dioxide 29 (22-32) mmol/L BUN 16 (7-17) mg/dL Creatinine 0.78 (0.52-1.04) mg/dL Estimated GFR > 60 (>60) mL/min BUN/Creatinine Ratio 20.5 (6-22) Glucose 103 H (70-99) mg/dL Lactate 1.6 (0.7-2.1) mmol/L Calcium 8.8 (8.4-10.2) mg/dL Magnesium 2.0 (1.6-2.3) mg/dL Total Bilirubin 0.6 (0.2-1.3) mg/dL AST 26 (14-36) IU/L ALT 22 (<35) IU/L Alkaline Phosphatase 65 (38-126) U/L Total Protein 6.9 (6.3-8.2) g/dL Albumin 4.2 (3.5-5.0) g/dL Globulin 2.7 (1.7-4.1) g/dL Albumin/Globulin Ratio 1.6 (1.0-2.8) Lipase 33 (23-300) U/L Urine Color Yellow Urine Appearance Clear Urine pH 6.0 (4.5-8.0) Ur Specific [place] 1.010 (1.000-1.035) Urine Protein Negative (Negative) Urine Glucose (UA) Negative (Negative) g/dL Urine Ketones Negative (NEGATIVE) Urine Occult Blood Negative (Negative) Urine Nitrate Negative (Negative) Urine Bilirubin Negative (NEGATIVE) Urine Urobilinogen 0.2 (0.2) E.U./dL Ur Leukocyte Esterase Negative (NEGATIVE) Urine RBC 0-1/hpf D (0-5/HPF) Urine WBC 0-1/hpf (0-5/HPF) Ur Squamous Epith Cells 0-1 /hpf (0-5/HPF) Urine Bacteria Occasional (0-1) (None) Ur Culture Indicated? Cult not indicated Vol Urine Centrifuged 10ml (spun) MDM Narrative Medical decision making narrative: 59-year-old woman with a long history of diverticulosis with recurrent episodes of diverticulitis completed 14 days of Augmentin still having pain. CT scan shows inflammation that is certainly suggest continued acute diverticulitis given her clinical symptoms however there was no evidence of abscess, bowel obstruction or partial obstruction or free air. Blood work does not show sepsis, she does not have a significantly elevated white blood cell count. With fluids and pain medications pain has been somewhat better controlled. Long discussion with the patient regarding symptoms and complaints. With shared decision-making we opted to treat with an additional 14 days of Augmentin as it does seem to be working. her oxycodone prescription is refilled along with instructions to continue with the MiraLax. Currently she is not showing any symptoms that would require hospitalization. will not follow up with her primary care physician. If this episode does completely resolve she will need outpatient follow up with General surgery and at some point may actually need to consider complete colectomy given her continued episodes and worsening pain. Findings reviewed with the patient, she is safe for discharge Discharge Plan Departure Patient Disposition: Home Clinical Impression: Diverticulitis Instructions: DI for Diverticulitis Activity Restrictions/Additional Instructions: thank you for coming in today, I am sorry you are suffering so much with this persistent diverticulitis your CT scan does not show severe inflammation, abscess formation, reasons for hospital admission, surgery or Interventional drainage. This is all very good. Your blood work does not show severe infection, sepsis, kidney failure or liver failure. Based on your clinical exam, your history and the bit of inflammation that is seen on the CT scan, I believe that the Augmentin is working however you still are showing signs of persistent diverticulitis that does not require surgery or hospitalization. I am going to give you an additional 14 days of Augmentin and refill your oxycodone prescription as well. Both of these prescriptions were sent to [facility]. With the oxycodone, it is addictive you will need to wean off of this, it does cause constipation so please make sure you are continuing to use your MiraLax fevers, inability to have a bowel movement, worsening pain or all results to return to the emergency depart Prescriptions: New amoxicillin-pot clavulanate 875-125 mg tablet 1 tab PO BID Qty: 28 0RF oxycodone 5 mg tablet 5 - 10 mg PO Q4-6H PRN (Reason: pain) Qty: 60 0RF No Action metoprolol succinate 50 MG tablet extended release 24 hr 50 mg PO QDAY Qty: 30 1RF anastrozole 1 mg tablet 1 mg PO DAILY Patient Comments: TAKE ONE(1) TABLET BY MOUTH ONCE DAILY prochlorperazine maleate 10 mg tablet 5 mg PO TID Patient Comments: TAKE ONE-HALF(1/2) TABLET BY MOUTH THREE(3) TIMES DAILY NEEDED FORNAUSEA pantoprazole 40 mg tablet,delayed release (DR/EC) 40 mg PO BEDTIME gabapentin 100 mg capsule 300 mg PO TID Patient Comments: TAKE THREE(3) CAPSULES BY MOUTH THREE(3) TIMES DAILY Xarelto 20 mg tablet 20 mg PO BEDTIME Patient Comments: TAKE ONE(1) TABLET BY MOUTH ONCE DAILY lisinopril 10 MG tablet 40 mg PO QDAY trazodone 50 mg tablet 150 mg PO BEDTIME ondansetron 4 mg tablet,disintegrating 4 mg PO Q8H PRN (Reason: Sleep) amoxicillin-pot clavulanate 875-125 mg tablet 1 tab PO BID Qty: 28 0RF oxycodone 5 mg tablet 5 mg PO Q6H PRN (Reason: pain) Qty: 14 0RF metoclopramide HCl [Reglan] 10 mg tablet 10 mg PO Q6H PRN (Reason: nausea and vomiting) Qty: 20 0RF Referrals: Divya Dupree MD [Primary Care Provider] - Stand Alone Forms: Patient Portal/API/Survey
[2025-02-24 15:23] LABS: Add Manual Diff / Slide Review NO; Basophils Absolute Auto 100 /uL (0-100); Basophils Percent Auto 0.7 % (0-2); Eosinophils Absolute Auto 200 /uL (0-450); Eosinophils Percent Auto 1.9 % (2-4); Hematocrit 39.6 % (36-46); Hemoglobin 13.9 g/dL (12.0-16.0); Lymphocytes Absolute Auto 2100 /uL (1100-4500); Lymphocytes Percent Auto 24.3 % (25-40); Mean Corpuscular Hemoglobin 34.1 PG (26-34); Mean Corpuscular Volume 97.5 fL (80-100); Monocytes Absolute Auto 700 /uL (0-900); Monocytes Percent Auto 7.8 % (3-14); Neutrophils Absolute Auto 5700 /uL (1500-7000); Neutrophils Percent Auto 65.3 % (50-75); Platelet Count 236 X10^3/uL (150-400); Red Blood Cell Count 4.06 X10^6/uL (4.0-5.2); Red Cell Distribution Width 12.7 % (11.6-14.8); White Blood Cell Count 8.7 X10^3/uL (4.5-11.0)
[2025-02-24] MEDS: HYDROMORPHONE 0.5 MG INJ IV ×3 (15:26→18:33)
[2025-02-24] MEDS: ONDANSETRON 4 MG/2 ML INJ IV (15:26)
[2025-02-24 15:37] LABS: Lactate (Lactic Acid) 1.6 mmol/L (0.7-2.1)
[2025-02-24 15:38] LABS: Alanine Aminotransferase 22 IU/L (<35); Albumin 4.2 g/dL (3.5-5.0); Albumin Globulin Ratio 1.6 (1.0-2.8); Alkaline Phosphatase 65 U/L (38-126); Aspartate Aminotransferase 26 IU/L (14-36); BUN Creatinine Ratio 20.5 (6-22); Bilirubin Total 0.6 mg/dL (0.2-1.3); Blood Urea Nitrogen 16 mg/dL (7-17); Calcium 8.8 mg/dL (8.4-10.2); Carbon Dioxide 29 mmol/L (22-32); Chloride 104 mmol/L (98-107); Estimated Glomerular Filt Rate > 60 mL/min (>60); Globulin 2.7 g/dL (1.7-4.1); Glucose 103 mg/dL (70-99); HEMOLYSIS 27 (0-50); Lipase 33 U/L (23-300); Potassium 4.3 mmol/L (3.4-5.1); Sodium 138 mmol/L (137-145); Total Protein 6.9 g/dL (6.3-8.2)
[2025-02-24] MEDS: SODIUM CHLORIDE 0.9% 1,000 ML 1000 ML IV (15:49)
[2025-02-24 17:08] LABS: Appearance Urine UA CLEAR; Bilirubin Urine UA NEGATIVE (NEGATIVE); Color Urine UA YELLOW; Glucose Urine UA NEGATIVE (Negative); Ketones Urine UA NEGATIVE (NEGATIVE); Leukocyte Esterase Urine UA NEGATIVE (NEGATIVE); Nitrite Urine UA NEGATIVE (Negative); Occult Blood Urine UA NEGATIVE (Negative); Protein Urine UA NEGATIVE (Negative); Urobilinogen Urine UA 0.2 E.U./dL (0.2)
[2025-02-24 17:15] LABS: Bacteria Urine Occasional (0-1); Culture Indicated Urine Cult Not Indicated; RBC Urine 0-1/HPF (0-5/HPF); Squamous Epithelial Cell Urine 0-1 /HPF (0-5/HPF); Urine Volume 10mL (spun); WBC Urine 0-1/HPF (0-5/HPF)
== END 2025-02-24 19:05 | disposition home or self-care (01) ==
PROVIDERS: Emergency Provider Emergency Medicine; PCP Family Medicine
DX: K57.92 Diverticulitis of intestine, part unspecified, without perforation or abscess without bleeding (principal)
CPT/HCPCS: 36415; 74177; 80053; 81001; 83605; 83690; 83735; 85025; 96361; 96374; 96375; 99284; J1171; J2405; Q9967

== ENCOUNTER 2025-03-27 00:17 | Emergency (ER) | payer OTHER, SELFPAY ==
[2024-06-23 21:11] VITALS: BMI 37.2
[2025-03-27] VITALS (7 sets, daily range): BP systolic 114–140; BP diastolic 84–91; PULSE 97–122; RESP 18–20; TEMP 36.9; O2SAT 91–100; BMI 37.2
--- NOTE | 2025-03-27 00:28 | ED_ITS ---
HPI - Fall General Chief Complaint: Wound/Laceration Stated Complaint: fall on thinners History of Present Illness HPI Narrative: 59-year-old female history of LLE DVT 2019 on Xarelto, breast cancer s/p masectomy b/l 2017 on anastrozole had mechanical fall today at top of the stairs fell face 1st onto ice water glass. Patient denies headache, dizziness, blurred vision, neck pain, chest pain, numbness, tingling, in the arms or legs, bowel or bladder incontinence, or gait instability. Other than what is stated 14 point review of system is negative. Related Data Home Medications ?Medication ?Instructions ?Recorded ?Confirmed anastrozole 1 mg tablet 1 mg PO DAILY 04/19/2102/28 gabapentin 100 mg capsule 300 mg PO TID 04/19/2102/28 pantoprazole 40 mg tablet,delayed 40 mg PO BEDTIME 02/28/25 release prochlorperazine maleate 10 mg 5 mg PO TID 04/19/21 tablet rivaroxaban 20 mg tablet (Xarelto) 20 mg PO BEDTIME 02/28/25 lisinopril 10 mg tablet 40 mg PO QDAY 10/21/2302/28 ondansetron 4 mg disintegrating 4 mg PO Q8H PRN Sleep 06/23/24 02/28/25 tablet trazodone 50 mg tablet 150 mg PO BEDTIME 06/23/24 0 02/28/25 Previous Rx's ?Medication ?Instructions ?Recorded metoprolol succinate 50 mg 50 mg PO QDAY ##30 02/27/17 tablet,extended release 24 hr amoxicillin 875 mg-potassium 1 tab PO BID #28 tabs clavulanate 125 mg tablet oxycodone 5 mg tablet 5 mg PO Q6H PRN pain #14 tab s 06/25/24 metoclopramide HCl 10 mg tablet 10 mg PO Q6H PRN nause a and 09/13/24 (Reglan) vomiting #20 tabs amoxicillin 875 mg-potassium 1 tab PO BID #28 tabs clavulanate 125 mg tablet oxycodone 5 mg tablet 5 - 10 mg (1 - 2 x 5 mg) PO Q4-6H 02/24/25 PRN pain #60 tabs Allergies Allergy/AdvReac Type Severity Reaction Status Date / Time adhesive tape AdvReac Rash Verified 02/28/25 08:46 Review of Systems Review of Systems ROS Unobtainable: All systems reviewed & are unremarkable except as noted in HPI and below Patient History Medical History DVT (deep venous thrombosis) Diverticulitis Invasive carcinoma of breast (03/21/17) Nodule of left lobe of thyroid gland (03/05/17) Essential hypertension (03/05/17) Old myocardial infarction (12/01/15) Mixed hyperlipidemia (12/01/15) Surgical History Hx of section H/O bilateral mastectomy Family History Mother Alive and well Father Myocardial infarction Son Autism Son Asthma Daughter Asthma Social History household members: family alcohol intake: current substance use type: does not use 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 Well-developed patient, in mild distress. HEAD: Atraumatic. Normocephalic. EYES: Pupils equal round and reactive. Extraocular motions intact. No scleral icterus. No injection or drainage. ENT: Nose without bleeding, purulent drainage. Throat without erythema, tonsillar hypertrophy or exudate. Airway patent. NECK: Trachea midline. Non tender CARDIOVASCULAR: Regular rate and rhythm without murmurs, gallops, or rubs. RESPIRATORY: Clear to auscultation. Breath sounds equal bilaterally. No wheezes, rales, or rhonchi. GASTROINTESTINAL: Abdomen soft, non-tender, nondistended. EXTREMITIES: No edema or joint tenderness. BACK: Nontender without deformity or crepitance. No flank tenderness. NEURO: AOx3. SKIN: No rash or erythema of visible areas. Left infraorbital hematoma. Mid forehead linear 3 x 1 cm superficial laceration Procedures Laceration Repair Laceration 1: Time of procedure: 02:11 Site: face Size (cm): 3.0 Description: linear Depth: simple, single layer Local Anesthetic: lidocaine 1% and with epi Amount of anesthesia used (mL): 4 Skin layer closed with: nylon Skin layer suture size: 5-0 Number of sutures: 7 Technique: simple, interrupted MDM - Fall Imaging Data CT scan - head: Radiologist's Impression: [place] [address] CT Scan Report Signed Patient: Arabella Dukes MR#: [id number] : 1965 Acct:[id number] Age/Sex: 59 / F Date of Service: 03/27/25 Loc: ED Accession Number: [id number] Procedure: CT head/brain wo con Ordering Provider: Surendra Saenz D.O. PROCEDURE: CT HEAD/BRAIN WO CON INDICATIONS: FALL ON THINNERS TECHNIQUE: Noncontrast 4.5 mm thick angled axial sections acquired from the foramen magnum to the vertex, with coronal and sagittal reformats. For radiation dose reduction, the following was used: automated exposure control, adjustment of mA and/or kV according to patient size. COMPARISON: [facility], CT, CT FACIAL BONES WO CON, 03/27/2025, 0:44. [facility], CT, CT HEAD/BRAIN WO CON, 11/07/2022, 9:25. FINDINGS: Image quality: Diagnostic. CSF spaces: Basal cisterns are patent. No extra-axial fluid collections. Ventricles are normal in size and shape. Brain: No midline shift. No intracranial mass effect or hemorrhage. Humphreys- white matter interface is normal. Skull and face: Calvarium and visualized facial bones are intact, without suspicious lesions. Sinuses: Visualized sinuses and mastoids are clear. IMPRESSION: No acute [place] [address] CT Scan Report Signed Patient: Arabella Dukes MR#: [id number] : 1965 Acct:[id number] Age/Sex: 59 / F Date of Service: 03/27/25 Loc: ED Accession Number: [id number] Procedure: CT facial bones wo con Ordering Provider: Surendra Saenz D.O. PROCEDURE: CT FACIAL BONES WO CON INDICATIONS: FALL ON THINNERS, soft tissue wounds near upper nose/forehead TECHNIQUE: Noncontrast 2.5 mm thick axial images acquired from the mandible through the frontal sinuses, with coronal and sagittal reformatting. For radiation dose reduction, the following was used: automated exposure control, adjustment of mA and/or kV according to patient size. COMPARISON: None. FINDINGS: Image quality: Excellent. Bones and teeth: Orbital razo are intact. Sinus razo show no fracture or deformity. Nasal bones and septum are intact. Visualized portions of the mandible demonstrate no fractures or subluxation. Zygomatic arches are intact. Pterygoid plates are intact. Visualized portions of the skull base and auditory canals are intact. Sinuses: Paranasal sinuses are aerated, without fluid levels, mucosal thickening, or mucoceles. Mastoid air cells are aerated. Soft tissues: No edema, masses, or fluid collections. No enlarged lymph nodes. No soft tissue lacerations or debris. Vascular: Visualized vascular structures appear normal in the absence of contrast. Bony vascular foramina and canals are intact. IMPRESSION: No visualized fracture. CT - cervical spine: Radiologist's Impression: [place] [address] CT Scan Report Signed Patient: Arabella Dukes MR#: [id number] : 1965 Acct:[id number] Age/Sex: 59 / F Date of Service: 03/27/25 Loc: ED Accession Number: [id number] Procedure: CT cervical spine wo con Ordering Provider: Surendra Saenz D.O. PROCEDURE: CT CERVICAL SPINE WO CON INDICATIONS: Fall, trauma on thinners TECHNIQUE: Noncontrast 3 mm thick sections acquired from the skull base to the T4 level. Sagittal and coronal reformats were then constructed. For radiation dose reduction, the following was used: automated exposure control, adjustment of mA and/or kV according to patient size. COMPARISON: [facility], CT, CT CERVICAL SPINE WO CON, 11/07/2022, 9:25. FINDINGS: Image quality: Excellent. Bones: No fractures or dislocations. Visualized superior ribs are intact. Soft tissues: Prevertebral soft tissues are normal in thickness. No paraver tebral hematomas. No apical pneumothoraces. Unchanged appearance of enlargement with calcification in the left thyroid lobe. IMPRESSION: No displaced fracture or traumatic subluxation. Chest x-ray: Radiologist's Impression: [address] [address] XRay Report Signed Patient: Arabella Dukes MR#: [id number] : 1965 Acct:[id number] Age/Sex: 59 / F Date of Service: 03/27/25 Loc: ED Accession Number: [id number] Procedure: XR chest 1V Ordering Provider: Surendra Saenz D.O. PROCEDURE: XR CHEST 1V INDICATIONS: FALL, ON THINNERS TECHNIQUE: One view of the chest was acquired. COMPARISON: [facility], , XR CHEST 1V, 04/19/2021, 20:56. FINDINGS: Surgical changes and devices: None. Lungs and pleura: Lungs are clear. No pleural effusions or pneumothorax. Mediastinum: Mediastinal contours appear normal. Heart size is normal. Bones and chest wall: No suspicious bony lesions. Overlying soft tissues appear unremarkable. IMPRESSION: No acute pulmonary process. Extremity x-ray #2: Radiologist's Impression: [facility] [address] [place] [id number] XRay Report Signed Patient: Arabella Dukes MR#: [id number] : 1965 Acct:[id number] Age/Sex: 59 / F Date of Service: 03/27/25 Loc: ED Accession Number: [id number] Procedure: XR pelvis 1-2V Ordering Provider: Surendra Saenz D.O. PROCEDURE: XR PELVIS 1-2V INDICATIONS: FALL, ON THINNERS TECHNIQUE: 1 view(s) of the pelvis acquired. COMPARISON: None. FINDINGS: Bones: No fractures or dislocations. No suspicious bony lesions. Soft tissues: Visualized bowel gas pattern is normal. No suspicious soft tissue calcifications. IMPRESSION: No visualized acute fracture or dislocation. However, if clinical concern and/or pain persist, short interval imaging followup in 7-10 days is recommended, as occult injury cannot be definitively excluded. ECG Data Interpretation: Junctional Rhythm HR 126 RI undetermined QRS [address]-t wave change Change from 09/13/24 [facility] Narrative Medical decision making narrative: All lab work, vital signs, nurse triage note, medication list, previous ER visits and all imaging studies reviewed. CT head face cervical all showed no acute process chest x-ray and pelvic x-ray showed no acute process. Tetanus updated on today's visit 7 sutures single interrupted using 5 0 nylon x1 pack. Bacitracin ointment. Suture removal with [facility] 5-7 days. Differential diagnosis subarachnoid, subdural, epidural, hemorrhage fracture, dislocation, pneumothorax, laceration, foreign body, cellulitis. Discharge Plan Departure Patient Disposition: Home Clinical Impression: Forehead laceration Qualifiers: Encounter type: initial encounter Qualified Code(s): S01.81XA - Laceration without foreign body of other part of head, initial encounter Contusion of face Qualifiers: Encounter type: initial encounter Qualified Code(s): S00.83XA - Contusion of o ther part of head, initial encounter Instructions: DI for Laceration Repair -- Simple Activity Restrictions/Additional Instructions: Return with new or worsening symptoms. Follow up with [facility] for suture removal in 7 days. Prescriptions: No Action metoprolol succinate 50 MG tablet extended release 24 hr 50 mg PO QDAY Qty: 30 1RF anastrozole 1 mg tablet 1 mg PO DAILY Patient Comments: TAKE ONE(1) TABLET BY MOUTH ONCE DAILY prochlorperazine maleate 10 mg tablet 5 mg PO TID Patient Comments: TAKE ONE-HALF(1/2) TABLET BY MOUTH THREE(3) TIMES DAILY NEEDED FORNAUSEA pantoprazole 40 mg tablet,delayed release (DR/EC) 40 mg PO BEDTIME gabapentin 100 mg capsule 300 mg PO TID Patient Comments: TAKE THREE(3) CAPSULES BY MOUTH THREE(3) TIMES DAILY Xarelto 20 mg tablet 20 mg PO BEDTIME Patient Comments: TAKE ONE(1) TABLET BY MOUTH ONCE DAILY lisinopril 10 MG tablet 40 mg PO QDAY trazodone 50 mg tablet 150 mg PO BEDTIME ondansetron 4 mg tablet,disintegrating 4 mg PO Q8H PRN (Reason: Sleep) amoxicillin-pot clavulanate 875-125 mg tablet 1 tab PO BID Qty: 28 0RF oxycodone 5 mg tablet 5 mg PO Q6H PRN (Reason: pain) Qty: 14 0RF metoclopramide HCl [Reglan] 10 mg tablet 10 mg PO Q6H PRN (Reason: nausea and vomiting) Qty: 20 0RF amoxicillin-pot clavulanate 875-125 mg tablet 1 tab PO BID Qty: 28 0RF oxycodone 5 mg tablet 5 - 10 mg PO Q4-6H PRN (Reason: pain) Qty: 60 0RF Referrals: Divya Dupree MD [Primary Care Provider, Family Practice] Stand Alone Forms: Patient Portal/API
--- NOTE | 2025-03-27 00:34 | DI.RAD.S_ITS ---
PROCEDURE: XR PELVIS 1-2V INDICATIONS: FALL, ON THINNERS TECHNIQUE: 1 view(s) of the pelvis acquired. COMPARISON: None. FINDINGS: Bones: No fractures or dislocations. No suspicious bony lesions. Soft tissues: Visualized bowel gas pattern is normal. No suspicious soft tissue calcifications. IMPRESSION: No visualized acute fracture or dislocation. However, if clinical concern and/or pain persist, short interval imaging followup in 7-10 days is recommended, as occult injury cannot be definitively excluded. Dictated by: Zofia Coyne M.D. on 03/27/2025 at 1:18 Approved by: Zofia Coyne M.D. on 03/27/2025 at 1:19
--- NOTE | 2025-03-27 00:34 | DI.RAD.S_ITS ---
PROCEDURE: XR CHEST 1V INDICATIONS: FALL, ON THINNERS TECHNIQUE: One view of the chest was acquired. COMPARISON: [facility], , XR CHEST 1V, 04/19/2021, 20:56. FINDINGS: Surgical changes and devices: None. Lungs and pleura: Lungs are clear. No pleural effusions or pneumothorax. Mediastinum: Mediastinal contours appear normal. Heart size is normal. Bones and chest wall: No suspicious bony lesions. Overlying soft tissues appear unremarkable. IMPRESSION: No acute pulmonary process. Dictated by: Zofia Coyne M.D. on 03/27/2025 at 1:18 Approved by: Zofia Coyne M.D. on 03/27/2025 at 1:18
--- NOTE | 2025-03-27 00:34 | DI.CT.S_ITS ---
PROCEDURE: CT CERVICAL SPINE WO CON INDICATIONS: Fall, trauma on thinners TECHNIQUE: Noncontrast 3 mm thick sections acquired from the skull base to the T4 level. Sagittal and coronal reformats were then constructed. For radiation dose reduction, the following was used: automated exposure control, adjustment of mA and/or kV according to patient size. COMPARISON: [facility], CT, CT CERVICAL SPINE WO [facility], 11/07/2022, 9:25. FINDINGS: Image quality: Excellent. Bones: No fractures or dislocations. Visualized superior ribs are intact. Soft tissues: Prevertebral soft tissues are normal in thickness. No paravertebral hematomas. No apical pneumothoraces. Unchanged appearance of enlargement with calcification in the left thyroid lobe. IMPRESSION: No displaced fracture or traumatic subluxation. Dictated by: Zofia Coyne M.D. on 03/27/2025 at 1:30 Approved by: Zofia Coyne M.D. on 03/27/2025 at 1:31
--- NOTE | 2025-03-27 00:34 | DI.CT.S_ITS ---
PROCEDURE: CT HEAD/BRAIN WO CON INDICATIONS: FALL ON THINNERS TECHNIQUE: Noncontrast 4.5 mm thick angled axial sections acquired from the foramen magnum to the vertex, with coronal and sagittal reformats. For radiation dose reduction, the following was used: automated exposure control, adjustment of mA and/or kV according to patient size. COMPARISON: [facility], CT, CT FACIAL BONES WO CON, 03/27/2025, 0:44. [facility], CT, CT HEAD/BRAIN WO CON, 11/07/2022, 9:25. FINDINGS: Image quality: Diagnostic. CSF spaces: Basal cisterns are patent. No extra-axial fluid collections. Ventricles are normal in size and shape. Brain: No midline shift. No intracranial mass effect or hemorrhage. Humphreys- white matter interface is normal. Skull and face: Calvarium and visualized facial bones are intact, without suspicious lesions. Sinuses: Visualized sinuses and mastoids are clear. IMPRESSION: No acute intracranial pathology. Dictated by: Zofia Coyne M.D. on 03/27/2025 at 1:28 Approved by: Zofia Coyne M.D. on 03/27/2025 at 1:28
--- NOTE | 2025-03-27 00:34 | DI.CT.S_ITS ---
PROCEDURE: CT FACIAL BONES WO CON INDICATIONS: FALL ON THINNERS, soft tissue wounds near upper nose/forehead TECHNIQUE: Noncontrast 2.5 mm thick axial images acquired from the mandible through the frontal sinuses, with coronal and sagittal reformatting. For radiation dose reduction, the following was used: automated exposure control, adjustment of mA and/or kV according to patient size. COMPARISON: None. FINDINGS: Image quality: Excellent. Bones and teeth: Orbital razo are intact. Sinus razo show no fracture or deformity. Nasal bones and septum are intact. Visualized portions of the mandible demonstrate no fractures or subluxation. Zygomatic arches are intact. Pterygoid plates are intact. Visualized portions of the skull base and auditory canals are intact. Sinuses: Paranasal sinuses are aerated, without fluid levels, mucosal thickening, or mucoceles. Mastoid air cells are aerated. Soft tissues: No edema, masses, or fluid collections. No enlarged lymph nodes. No soft tissue lacerations or debris. Vascular: Visualized vascular structures appear normal in the absence of contrast. Bony vascular foramina and canals are intact. IMPRESSION: No visualized fracture. Dictated by: Zofia Coyne M.D. on 03/27/2025 at 1:28 Approved by: Zofia Coyne M.D. on 03/27/2025 at 1:30
--- NOTE | 2025-03-27 00:34 | EKG_ITS ---
[address] [address] Test Date: 2025-03-27 Pat Name: Arabella Dukes Department: Room: Gender: Female [employer] Machine: ARNULFO : 1965 Requested By: Order Number: [id number] Reading MD: Surendra Chavez MD Measurements Intervals [place] Rate: 126 P: NV: QRS: -21 QRSD: 88 T: 11 QT: 312 QTc: 451 Interpretive Statements Accelerated Junctional rhythm with retrograde conduction Possible Anterior infarct , age undetermined Electronically Signed On 03-27-2025 9:14:10 PDT by Surendra Chavez MD
[2025-03-27] MEDS: ACETAMINOPHEN 325 MG TABLET 975 MG PO (01:14)
[2025-03-27] MEDS: TET,DIPH,PERTUSS(ACELL),VAC/PF 0.5 ML SYRINGE IM (01:15)
[2025-03-27 01:32] LABS: Add Manual Diff / Slide Review NO; Basophils Absolute Auto 100 /uL (0-100); Basophils Percent Auto 1.1 % (0-2); Eosinophils Absolute Auto 200 /uL (0-450); Eosinophils Percent Auto 2.1 % (2-4); Hematocrit 41.3 % (36-46); Hemoglobin 14.4 g/dL (12.0-16.0); Lymphocytes Absolute Auto 2200 /uL (1100-4500); Lymphocytes Percent Auto 23.1 % (25-40); Mean Corpuscular HGB Conc 34.9 % (30-36); Mean Corpuscular Hemoglobin 33.9 PG (26-34); Mean Corpuscular Volume 97.1 fL (80-100); Monocytes Absolute Auto 700 /uL (0-900); Monocytes Percent Auto 7.7 % (3-14); Neutrophils Absolute Auto 6400 /uL (1500-7000); Platelet Count 213 X10^3/uL (150-400); Red Blood Cell Count 4.25 X10^6/uL (4.0-5.2); Red Cell Distribution Width 12.5 % (11.6-14.8); White Blood Cell Count 9.7 X10^3/uL (4.5-11.0)
[2025-03-27] MEDS: LIDOCAINE 1% W/EPI 10ML 4 ML INJ (01:39)
[2025-03-27] MEDS: MORPHINE 4 MG/ML INJ IV (01:43)
[2025-03-27 02:02] LABS: Alanine Aminotransferase 40 IU/L (<35); Albumin 4.4 g/dL (3.5-5.0); Albumin Globulin Ratio 1.6 (1.0-2.8); Alkaline Phosphatase 114 U/L (38-126); Aspartate Aminotransferase 49 IU/L (14-36); BUN Creatinine Ratio 25.4 (6-22); Bilirubin Total 0.6 mg/dL (0.2-1.3); Blood Urea Nitrogen 17 mg/dL (7-17); Calcium 8.5 mg/dL (8.4-10.2); Carbon Dioxide 21 mmol/L (22-32); Chloride 105 mmol/L (98-107); Creatine Kinase 39 U/L (30-135); Estimated Glomerular Filt Rate > 60 mL/min (>60); Globulin 2.7 g/dL (1.7-4.1); Glucose 109 mg/dL (70-99); HEMOLYSIS 21 (0-50); Lipase 56 U/L (23-300); Sodium 138 mmol/L (137-145); Total Protein 7.1 g/dL (6.3-8.2)
[2025-03-27 02:14] LABS: Troponin I < 0.012 ng/mL (0.01-0.034)
[2025-03-27] MEDS: BACITRACIN OINT 0.9 GM PCKT 1 APPLIC TOP (02:41)
== END 2025-03-27 02:51 | disposition home or self-care (01) ==
PROVIDERS: Emergency Provider Family Medicine; PCP Family Medicine
DX: S01.81XA Laceration without foreign body of other part of head, initial encounter (principal); S00.83XA Contusion of other part of head, initial encounter; R07.89 Other chest pain; Z79.01 Long term (current) use of anticoagulants; W01.110A Fall on same level from slipping, tripping and stumbling with subsequent striking against sharp glass, initial encounter; Z23 Encounter for immunization
CPT/HCPCS: 12013; 70450; 70486; 71045; 72125; 72170; 80053; 82550; 83690; 84484; 85025; 90471; 93005; 93010; 96374; 99284; 90715; J2270

== ENCOUNTER 2025-07-23 16:05 | Emergency (ER) | payer OTHER, SELFPAY ==
[2025-05-15 11:41] VITALS: BMI 35.4
[2025-07-23] VITALS (20 sets, daily range): BP systolic 140–184; BP diastolic 73–92; PULSE 82–109; RESP 12–29; TEMP 36.3; O2SAT 87–97; BMI 35.4
[2025-07-23 16:41] LABS: Add Manual Diff / Slide Review NO; Hematocrit 39.9 % (36-46); Hemoglobin 13.7 g/dL (12.0-16.0); Lymphocytes Absolute Auto 1100 /uL (1100-4500); Mean Corpuscular HGB Conc 34.3 % (30-36); Mean Corpuscular Hemoglobin 33.6 PG (26-34); Mean Corpuscular Volume 98.0 fL (80-100); Platelet Count 183 X10^3/uL (150-400)
[2025-07-23 16:49] LABS: Alanine Aminotransferase 37 IU/L (<35); Albumin 4.3 g/dL (3.5-5.0); Albumin Globulin Ratio 1.5 (1.0-2.8); Alkaline Phosphatase 98 U/L (38-126); Blood Urea Nitrogen 11 mg/dL (7-17); Calcium 8.6 mg/dL (8.4-10.2); Carbon Dioxide 27 mmol/L (22-32); Chloride 104 mmol/L (98-107); Estimated Glomerular Filt Rate > 60 mL/min (>60); Globulin 2.8 g/dL (1.7-4.1); Glucose 111 mg/dL (70-99); HEMOLYSIS < 15 (0-50); Lipase 51 U/L (23-300); Potassium 3.9 mmol/L (3.4-5.1); Sodium 139 mmol/L (137-145); Total Protein 7.1 g/dL (6.3-8.2)
[2025-07-23] MEDS: ONDANSETRON 4 MG/2 ML INJ IV (17:43)
--- NOTE | 2025-07-23 19:31 | PC.NURSE ---
Order changed from ED urine dipstick to lab UA with micro d/t pt taking Pyridium.
--- NOTE | 2025-07-23 19:34 | DI.CT.S_ITS ---
PROCEDURE: CT ABDOMEN PELVIS W CON INDICATIONS: right flank pain TECHNIQUE: After the administration of intravenous contrast, axial sections acquired from the lung bases to the pubic symphysis. Coronal and sagittal reformats were performed. For radiation dose reduction, the following was used: automated exposure control, adjustment of mA and/or kV according to patient size. COMPARISON: [facility], CT, CT ABDOMEN PELVIS W CON, 02/24/2025, 15:40. FINDINGS: Image quality: Diagnostic Lower chest: Basal atelectasis. Cardiomegaly. Liver: Hepatic steatosis Hepatomegaly. Gallbladder and biliary system: Unremarkable, nondilated Pancreas: No ductal dilation. 1.9 cm hypoattenuation in the uncinate process (2/54). Spleen: Nonenlarged Adrenals: No discrete nodules. Kidneys: 3 mm left distal ureter stone. There is upstream moderate hydronephrosis and delayed nephrogram Vessels and lymph nodes: Main portal vein is patent. No abdominal aneurysm. No enlarged lymph nodes by size criteria. Bowel and peritoneum: No bowel obstruction. Colonic diverticula. No enlarged lymph nodes by size criteria. Nondilated appendix Body wall: Small fat containing umbilical hernia. Pelvis: Under distended urinary bladder. Reproductive organs are unremarkable on limited CT evaluation Bones: No aggressive appearing osseous abnormality. Degenerative changes are seen. IMPRESSION: 3 mm left distal ureter stone with moderate upstream hydronephrosis. Delayed nephrogram indicates obstructive uropathy. Hepatic steatosis and hepatomegaly. 1.9 cm hypoattenuating region in the uncinate process of the pancreas. This could represent focal fatty infiltration versus a true lesion. Nonurgent MRI is suggested to further evaluate. Other findings above. Dictated by: Surjit Calderon M.D. on 07/23/2025 at 21:35 Approved by: Surjit Calderon M.D. on 07/23/2025 at 21:41
--- NOTE | 2025-07-23 19:43 | PC.NURSE ---
Pt awake and alert sitting in ED stretcher and engages with RN appropriately upon entry to exam room. Pt states left flabnk pain since earlier in the day, n/v. Hx of kidney stones and diverticulitis. Currently 6/10 pain. Pt ambulatory to restroom at this time without difficulty or assistance, urine sample provided. Pt placed back on blood pressure and pulse ox monitors with alarms on and audible. Call light within reach. Continued plan of care discussed. No further requests or complaints at this time.
[2025-07-23 20:05] LABS: Color Urine UA ORANGE
[2025-07-23 20:06] LABS: Appearance Urine UA CLEAR; Culture Indicated Urine Cult Not Indicated
--- NOTE | 2025-07-23 20:30 | PC.NURSE ---
Pt to imaging via ED stretcher with electronic imaging system operator
[2025-07-23] MEDS: SODIUM CHLORIDE 0.9% 1,000 ML 1000 ML IV (20:44)
--- NOTE | 2025-07-23 21:15 | ED_ITS ---
HPI - Abdominal Pain General Chief Complaint: Abdominal Pain Stated Complaint: L Flank Px Time Seen by Provider: 07/23/25 20:14 Source: patient and EMS Mode of arrival: EMS History of Present Illness HPI narrative: 60-year-old female with a past medical history of hypertension, breast cancer undergoing treatment with anastrozole currently under the care of Dr. Hammond with history of DVT currently on Xarelto. She started having severe left-sided flank pain earlier this afternoon and progressively got worse along with some nausea and vomiting. Related Data Home Medications ?Medication ?Instructions ?Recorded ?Confirmed anastrozole 1 mg tablet 1 mg PO DAILY 04/19/2105/14 gabapentin 100 mg capsule 300 mg PO TID 04/19/2105/14 prochlorperazine maleate 10 mg 5 mg PO TID 04/19/21 tablet rivaroxaban 20 mg tablet (Xarelto) 20 mg PO BEDTIME 05/14/25 lisinopril 10 mg tablet 40 mg PO QDAY 10/21/2305/14 ondansetron 4 mg disintegrating 4 mg PO Q8H PRN Sleep 06/23/24 05/14/25 tablet trazodone 50 mg tablet 150 mg PO BEDTIME 06/23/24 0 05/14/25 Previous Rx's ?Medication ?Instructions ?Recorded metoprolol succinate 50 mg 50 mg PO QDAY ##30 02/27/17 tablet,extended release 24 hr oxycodone 5 mg tablet 5 mg PO Q6H PRN pain #14 tab s 06/25/24 metoclopramide HCl 10 mg tablet 10 mg PO Q6H PRN nause a and 09/13/24 (Reglan) vomiting #20 tabs oxycodone 5 mg tablet 5 - 10 mg (1 - 2 x 5 mg) PO Q4-6H 02/24/25 PRN pain #60 tabs aluminum-mag hydroxide-simethicone 30 ml PO Q6H PRN He artburn #30 05/15/25 200 mg-200 mg-20 mg/5 mL oral susp doses (Mag-Al Plus) hydrocodone 5 mg-acetaminophen 325 1 tab PO Q4-6H PRN pain #30 tabs 05/15/25 mg tablet lidocaine HCl 2 % mucosal solution 15 ml PO PRN PRN He artburn #30 05/15/25 doses pantoprazole 40 mg tablet,delayed 40 mg PO BID #60 tab s 05/15/25 release oxycodone 5 mg capsule 5 mg PO Q6H PRN pain #10 cap s 07/23/25 tamsulosin 0.4 mg capsule (Flomax) 0.4 mg PO DAILY #14 caps 07/23/25 Allergies Allergy/AdvReac Type Severity Reaction Status Date / Time adhesive tape AdvReac Rash Verified 07/23/25 16:15 Review of Systems Review of Systems ROS Unobtainable: All systems reviewed & are unremarkable except as noted in HPI and below Patient History Medical History DVT (deep venous thrombosis) Diverticulitis Invasive carcinoma of breast (03/21/17) Nodule of left lobe of thyroid gland (03/05/17) Essential hypertension (03/05/17) Old myocardial infarction (12/01/15) Mixed hyperlipidemia (12/01/15) Surgical History Hx of section H/O bilateral mastectomy Family History Mother Alive and well Father Myocardial infarction Son Autism Son Asthma Daughter Asthma Social History household members: family alcohol intake: current substance use type: does not use additional social history: 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 [place] alcohol intake frequency: 0-2 drinks per day Alcohol type: wine Exam Narrative Exam Narrative: General: Patient appears to be in no acute distress, acting appropriately Head: normocephalic, atraumatic, HEENT: Pupils equal round reactive, eyes tracking well, neck supple, no JVD Heart: regular rate and rhythm, no murmurs, rubs, or gallops heard Lungs: clear to auscultation, no adventitious sounds Abdomen: soft , nontender, nondistended, positive bowel sound, left sided cva tenderness Neurological: no focal neurological signs, moving all extremities well, alert and oriented x3, Psych: good judgment ,good insight, mood is normal. Initial Vital Signs Initial Vital Signs: Vital Signs Pulse Rate 98 H 07/23/25 16:14 Pulse Oximetry 92 07/23/25 16:14 Course Orders Ordered: ED Orders 07/23/25 19:34 CT abdomen pelvis w con Stat 07/23/25 19:35 Urinalysis and Microscopic Stat Discontinued Medications Hydromorphone HCl (Hydromorphone Hcl 0.5 Mg/0.5 Ml Syringe) 0.5 mg IV NOW ONE Stop: 07/23/25 17:36 Last Admin: 07/23/25 17:43 Dose: 0.5 mg Documented By: HELEN Hydromorphone HCl (Hydromorphone Hcl 0.5 Mg/0.5 Ml Syringe) 0.5 mg IV NOW ONE Stop: 07/23/25 20:33 Last Admin: 07/23/25 20:43 Dose: 0.5 mg Documented By: LOGAN Hydromorphone HCl (Hydromorphone Hcl 0.5 Mg/0.5 Ml Syringe) 0.5 mg IV NOW ONE Stop: 07/23/25 22:01 Last Admin: 07/23/25 22:02 Dose: 0.5 mg Documented By: LOGAN Hydromorphone HCl (Hydromorphone Hcl 0.5 Mg/0.5 Ml Syringe) 0.5 mg IV NOW ONE Stop: 07/23/25 23:21 Last Admin: 07/23/25 23:27 Dose: 0.5 mg Documented By: LOGAN Sodium Chloride (Normal Saline 0.9%) 1,000 mls @ 1,000 mls/hr IV BOLUS ONE Stop: 07/23/25 21:41 Last Infusion: 07/23/25 21:43 Dose: Infused Documented By: Admin: 07/23/25 20:44 Dose: 1,000 mls/hr Documented By: LOGAN Ketorolac Tromethamine (Ketorolac 30 Mg/Ml Vial) 15 mg IV NOW ONE Stop: 07/23/25 22:54 Last Admin: 07/23/25 22:56 Dose: 15 mg Documented By: LOGAN Ondansetron HCl (Ondansetron 4 Mg/2 Ml Inj) 4 mg IV NOW PRN PRN Reason: Nausea And Vomiting Last Admin: 07/23/25 17:43 Dose: 4 mg Documented By: HELEN Ondansetron HCl (Ondansetron 4 Mg Odt) 4 mg PO NOW PRN PRN Reason: Nausea And Vomiting Oxycodone/Acetaminophen (Oxycodone/Apap 5/325 Prepack) 1 bottle MISC DIRECTED ONE Stop: 07/23/25 23:21 Last Admin: 07/23/25 23:27 Dose: 1 bottle Documented By: LOGAN Tamsulosin HCl (Tamsulosin 0.4 Mg Capsule) 0.4 mg PO NOW ONE Stop: 07/23/25 22:52 Last Admin: 07/23/25 22:56 Dose: 0.4 mg Documented By: LOGAN Consultations Consultation #1: consultation made with Dr. Irwin urology from [facility] who did not feel that any acute intervention needed to made at this point. Patient advised trying to control her pain and coming back to the ER if pain is not controlled. Vital Signs Vital signs: Vital Signs - 8 hr 07/23/25 19:39 07/23/25 19:40 07/23/25 19:40 Pulse Rate 94 H 92 H Respiratory Rate 20 Blood Pressure 159/89 H Pulse Oximetry 96 95 Oxygen Delivery Method Nasal Cannula Room Air Oxygen Flow Rate 2 07/23/25 20:00 07/23/25 20:00 07/23/25 20:40 Pulse Rate 95 H 98 H Respiratory Rate 20 Blood Pressure 146/87 H Pulse Oximetry 87 L 97 Oxygen Delivery Method Room Air Oxygen Flow Rate 07/23/25 20:49 07/23/25 20:49 07/23/25 21:00 Pulse Rate 95 H 96 H Respiratory Rate 24 26 H Blood Pressure 155/88 H Pulse Oximetry 97 97 Oxygen Delivery Method Nasal Cannula Nasal Cannula Oxygen Flow Rate 2 07/23/25 21:00 07/23/25 21:30 07/23/25 21:30 Pulse Rate 90 Respiratory Rate 29 H Blood Pressure 160/88 H 156/83 H Pulse Oximetry 95 Oxygen Delivery Method Nasal Cannula Oxygen Flow Rate 2 07/23/25 22:00 07/23/25 22:00 07/23/25 22:30 Pulse Rate 107 H Respiratory Rate 23 Blood Pressure 157/85 H 149/84 H Pulse Oximetry 96 Oxygen Delivery Method Nasal Cannula Oxygen Flow Rate 2 07/23/25 22:30 07/23/25 23:00 07/23/25 23:00 Pulse Rate 109 H 82 Respiratory Rate 24 Blood Pressure 181/91 H Pulse Oximetry 97 96 Oxygen Delivery Method Nasal Cannula Nasal Cannula Oxygen Flow Rate 2 2 07/23/25 23:30 07/23/25 23:30 07/23/25 23:49 Pulse Rate 93 H Respiratory Rate 17 Blood Pressure 168/83 H 167/92 H Pulse Oximetry 97 Oxygen Delivery Method Nasal Cannula Oxygen Flow Rate 2 07/23/25 23:49 Pulse Rate 99 H Respiratory Rate 20 Blood Pressure Pulse Oximetry 93 Oxygen Delivery Method Room Air Oxygen Flow Rate MDM - Abdominal Pain Lab Data 07/23/25 16:30 07/23/25 16:30 Labs: Lab Results 07/23/25 07/23/25 Range/Units 16:30 19:35 WBC 8.0 (4.5-11.0) X10^3/uL RBC 4.07 (4.0-5.2) X10^6/uL Hgb 13.7 (12.0-16.0) g/dL Hct 39.9 (36-46) % MCV 98.0 (80-100) fL MCH 33.6 (26-34) PG MCHC 34.3 (30-36) % RDW 13.0 (11.6-14.8) % Plt Count 183 (150-400) X10^3/uL Neut % (Auto) 77.9 H (50-75) % Lymph % (Auto) 13.5 L (25-40) % Archuleta % (Auto) 7.2 (3-14) % Eos % (Auto) 1.1 L (2-4) % Baso % (Auto) 0.3 (0-2) % Neut # (Auto) 6200 (8400-7572) /uL Lymph # (Auto) 1100 (0052-5830) /uL [place]uleta # (Auto) 600 (0-900) /uL Eos # (Auto) 100 (0-450) /uL Baso # (Auto) 0 (0-100) /uL Sodium 139 (137-145) mmol/L Potassium 3.9 (3.4-5.1) mmol/L Chloride 104 (98-107) mmol/L Carbon Dioxide 27 (22-32) mmol/L BUN 11 (7-17) mg/dL Creatinine 0.77 (0.52-1.04) mg/dL Estimated GFR > 60 (>60) mL/min BUN/Creatinine Ratio 14.3 (6-22) Glucose 111 H (70-99) mg/dL Calcium 8.6 (8.4-10.2) mg/dL Total Bilirubin 0.8 (0.2-1.3) mg/dL AST 53 H (14-36) IU/L ALT 37 H (<35) IU/L Alkaline Phosphatase 98 (38-126) U/L Total Protein 7.1 (6.3-8.2) g/dL Albumin 4.3 (3.5-5.0) g/dL Globulin 2.8 (1.7-4.1) g/dL Albumin/Globulin Ratio 1.5 (1.0-2.8) Lipase 51 (23-300) U/L Urine Color Lyman Urine Appearance Clear Urine pH TNP Ur Specific [place] TNP Urine Protein TNP Urine Glucose (UA) TNP Urine Ketones TNP Urine Occult Blood TNP Urine Nitrate TNP Urine Bilirubin TNP Urine Urobilinogen TNP Ur Leukocyte Esterase TNP Urine RBC 30-100/hpf H (0-5/HPF) Urine WBC None seen (0-5/HPF) Ur Squamous Epith Cells 0-1 /hpf (0-5/HPF) Urine Bacteria Moderate (10-30) H (None) Urine Yeast 0-1/hpf (None) Ur Culture Indicated? Cult not indicated Vol Urine Centrifuged 10ml (spun) Imaging Data CT scan - abdomen/pelvis: Radiologist's Impression: 3 mm left distal ureter stone with moderate upstream hydronephrosis. Delayed nephrogram indicates obstructive uropathy. Hepatic steatosis and hepatomegaly. 1.9 cm hypoattenuating region in the uncinate process of the pancreas. This could represent focal fatty infiltration versus a true lesion. Nonurgent MRI is suggested to further evaluate. MDM Narrative Medical decision making narrative: 60-year-old female that was found to have a 3 mm left distal ureter stone with moderate hydronephrosis. Eventually pain was controlled better with several doses Dilaudid and Toradol. Also given some fluids. Patient also prescribed more oxycodone for pain and advised to follow up if pain is not controlled. She is also given a strainer. We will also prescribe some Flomax. Discharge Plan Departure Patient Disposition: Home Clinical Impression: Calculus of kidney Instructions: DI for Kidney Stones Activity Restrictions/Additional Instructions: Hydrate as much as possible. Use Flomax and pain meds as prescribed. Follow up back here in the ER if pain is not controlled. Prescriptions: New tamsulosin [Flomax] 0.4 mg capsule 0.4 mg PO DAILY Qty: 14 0RF oxycodone 5 mg capsule 5 mg PO Q6H PRN (Reason: pain) Qty: 10 0RF No Action metoprolol succinate 50 MG tablet extended release 24 hr 50 mg PO QDAY Qty: 30 1RF anastrozole 1 mg tablet 1 mg PO DAILY Patient Comments: TAKE ONE(1) TABLET BY MOUTH ONCE DAILY prochlorperazine maleate 10 mg tablet 5 mg PO TID Patient Comments: TAKE ONE-HALF(1/2) TABLET BY MOUTH THREE(3) TIMES DAILY NEEDED FORNAUSEA gabapentin 100 mg capsule 300 mg PO TID Patient Comments: TAKE THREE(3) CAPSULES BY MOUTH THREE(3) TIMES DAILY Xarelto 20 mg tablet 20 mg PO BEDTIME Patient Comments: TAKE ONE(1) TABLET BY MOUTH ONCE DAILY lisinopril 10 MG tablet 40 mg PO QDAY trazodone 50 mg tablet 150 mg PO BEDTIME ondansetron 4 mg tablet,disintegrating 4 mg PO Q8H PRN (Reason: Sleep) oxycodone 5 mg tablet 5 mg PO Q6H PRN (Reason: pain) Qty: 14 0RF metoclopramide HCl [Reglan] 10 mg tablet 10 mg PO Q6H PRN (Reason: nausea and vomiting) Qty: 20 0RF oxycodone 5 mg tablet 5 - 10 mg PO Q4-6H PRN (Reason: pain) Qty: 60 0RF lidocaine HCl 2 % Solution 15 ml PO PRN PRN (Reason: Heartburn) Qty: 30 0RF alum-mag hydroxide-simeth [Mag-Al Plus] 200-200-20 mg/5 mL Suspension 30 ml PO Q6H PRN (Reason: Heartburn) Qty: 30 0RF pantoprazole 40 mg tablet,delayed release (DR/EC) 40 mg PO BID Qty: 60 0RF hydrocodone-acetaminophen 5-325 mg tablet 1 tab PO Q4-6H PRN (Reason: pain) Qty: 30 0RF Referrals: Divya Dupree MD [Primary Care Provider, Family Practice] Stand Alone Forms: Patient Portal/API
[2025-07-23] MEDS: TAMSULOSIN 0.4 MG CAPSULE PO (22:56)
[2025-07-23] MEDS: KETOROLAC 30 MG/ML VIAL 15 MG IV (22:56)
== END 2025-07-24 00:03 | disposition home or self-care (01) ==
PROVIDERS: Emergency Medicine; Emergency Provider Family Medicine; PCP Family Medicine
DX: N13.2 Hydronephrosis with renal and ureteral calculous obstruction (principal); C50.919 Malignant neoplasm of unspecified site of unspecified female breast
CPT/HCPCS: 74177; 80053; 81001; 83690; 85025; 96361; 96374; 96375; 96376; 99284; J1171; J1885; J2405; J7030; Q9967